=== PATIENT | female | born 1945 | race Caucasian/White ===

== ENCOUNTER → 2017-01-26 | Outpatient (CLI) | payer MEDICARE, MEDICAID, SELFPAY | PROVIDERS: Family Provider Family Medicine; Visit Provider Internal Medicine | DX: Z87.891 Personal history of nicotine dependence (principal); Z12.2 Encounter for screening for malignant neoplasm of respiratory organs ==

== ENCOUNTER → 2017-05-01 13:49 | Outpatient (POV) | payer MEDICARE, MEDICAID, SELFPAY | PROVIDERS: Family Provider Family Medicine; Visit Provider Internal Medicine | DX: Z00.00 Encounter for general adult medical examination without abnormal findings (principal) ==

== ENCOUNTER → 2017-08-24 15:35 | Outpatient (CLI) | payer MEDICARE, MEDICAID, SELFPAY ==
--- NOTE | 2017-08-24 15:45 | XR_ITS ---
XR hip RT 2-3V w/pelvis Ordering Physician: Pat Castro Patient Age: 71 years: Female HISTORY: ITS.REASON: FALL Right hip pain. Fell on sidewalk. TECHNIQUE: AP frog-leg right hip along with AP pelvis. COMPARISON : FINDINGS The right femoral head and neck are intact with no fracture. Bones well mineralized AP pelvis demonstrates symmetrical satisfactory appearance of both hips. No fracture. Sacrum and iliac bone intact. Superior and inferior ramus intact. Moderately distended bladder. IMPRESSION: Negative right hip. Negative AP pelvis
== END ==
PROVIDERS: PCP Nurse Practitioner; Visit Provider Nurse Practitioner
DX: M25.552 Pain in left hip (principal)
CPT/HCPCS: 73502

== ENCOUNTER → 2017-09-04 14:37 | Outpatient (POV) | payer MEDICARE, MEDICAID, SELFPAY | PROVIDERS: Family Provider Family Medicine; PCP Nurse Practitioner; Visit Provider Internal Medicine | DX: Z00.00 Encounter for general adult medical examination without abnormal findings (principal) ==

== ENCOUNTER → 2017-09-06 13:06 | Outpatient (CLI) | payer MEDICARE, MEDICAID, SELFPAY ==
--- NOTE | 2017-09-06 13:11 | CT_ITS ---
CT chest wo con HISTORY: Follow-up pulmonary nodules ITS.REASON: PULMONARY NODULES ORDERING PHYSICIAN: Stanford Ware MD PATIENT AGE: 71 years COMPARISON: 08/06/2015 Technique: Axial images obtained with sagittal and coronal reformats. All CT scans at the facility use one or more dose reduction, viz: automated exposure control, ma/kV adjustment per patient size (including targeted exams where dose is matched to indication, i.e. head), or iterative reconstruction technique. FINDINGS: Artifact is present from cardiac pacemaker wires. Normal heart size. No mediastinal or hilar mass or adenopathy. There are centrilobular emphysematous changes with evidence of old granulomatous disease a 6 mm noncalcified nodule is present within the posterior aspect of the right lower lobe not significant changed. A 4 mm noncalcified nodule present in the left lower lobe posterior laterally unchanged a 4 mm nodules present in the central aspect of the left lower lobe unchanged. No new nodules are evident. Biapical fibrotic changes are noted. No effusions or infiltrates. Fibrotic changes are also present in the lingula. Upper abdominal images are unremarkable. No acute bony findings. IMPRESSION: 1. Overall stable CT appearance of the chest. 2. No change in the bilateral noncalcified pulmonary nodules. 3. Centrilobular emphysema
== END ==
PROVIDERS: Family Provider Family Medicine; PCP Nurse Practitioner; Visit Provider Internal Medicine
DX: R91.8 Other nonspecific abnormal finding of lung field (principal)
CPT/HCPCS: 71250

== ENCOUNTER → 2017-12-11 14:15 | Outpatient (CLI) | payer MEDICARE, MEDICAID, SELFPAY ==
--- NOTE | 2017-12-11 14:18 | CT_ITS ---
CT hip RT wo con INDICATION: Right hip pain, remote injury ITS.REASON: RT HIP AND LOW BACK PAIN ORDERING PHYSICIAN: Pat Castro PATIENT AGE: 72 years COMPARISON: 08/24/2017 TECHNIQUE: Axial images are obtained without contrast. Sagittal and coronal reformatted images are reviewed as well. All CT scans at the facility use one or more dose reduction, viz: automated exposure control, ma/kV adjustment per patient size (including targeted exams where dose is matched to indication, i.e. head), or iterative reconstruction technique. FINDINGS: There is a healing fracture involving the right superior pubic ramus at the junction of the ischium/anterior wall the acetabulum. The fracture line is visible. There is however some callus formation and sclerosis. A minimally displaced rancher present involving the mid aspect of the inferior pubic ramus with some developing sclerosis. There is also a nondisplaced fracture involving the medial aspect of the left superior and inferior pubic ramus. These fractures are not visible on 08/24/2017 radiograph. There is a faint cortical lucency involving the anterior aspect of the neck of the femur seen on axial image 42,43, and 44. A nondisplaced fracture is a consideration however, the lucency does not extend into the intramedullary portion of the femur neck nor the posterior aspect of the neck. This could also represent a small cortical defect. MRI may be of further value to determine between the 2. No soft tissue abnormalities evident. IMPRESSION: 1. Healing fractures of the right superior and inferior pubic ramus and left superior and inferior pubic ramus as described above. 2. Possible nondisplaced fracture of the femoral neck. Consider MRI for further evaluation.
--- NOTE | 2017-12-11 14:18 | CT_ITS ---
CT lumbar spine wo con INDICATION: ITS.REASON: RT HIP AND LOW BACK PAIN ORDERING PHYSICIAN: Pat Castro PATIENT AGE: 72 years COMPARISON: None TECHNIQUE: Axial images obtained with sagittal and coronal reformats. All CT scans at the facility use one or more dose reduction, viz: automated exposure control, ma/kV adjustment per patient size (including targeted exams where dose is matched to indication, i.e. head), or iterative reconstruction technique. FINDINGS: Normal alignment. No fracture or dislocation. The disc spaces are well-preserved. No lytic or blastic change. No significant degenerative change No paraspinal mass. There is diverticulosis of the sigmoid colon. Incidental vascular calcification IMPRESSION: Negative CT lumbar spine
== END ==
PROVIDERS: PCP Nurse Practitioner; Visit Provider Nurse Practitioner
DX: M25.551 Pain in right hip (principal); M54.5 Low back pain
CPT/HCPCS: 72131; 73700

== ENCOUNTER → 2018-01-08 13:35 | Outpatient (POV) | payer MEDICARE, MEDICAID, SELFPAY | PROVIDERS: Visit Provider Internal Medicine | DX: Z00.00 Encounter for general adult medical examination without abnormal findings (principal) ==

== ENCOUNTER → 2018-05-14 14:14 | Outpatient (POV) | payer MEDICARE, MEDICAID, SELFPAY | PROVIDERS: Visit Provider Internal Medicine | DX: Z00.00 Encounter for general adult medical examination without abnormal findings (principal) ==

== ENCOUNTER 2018-07-17 12:35 | Outpatient (CLI) | payer MEDICARE, MEDICAID, SELFPAY ==
[2018-07-17 12:45] VITALS: BP 144/73; PULSE 85; RESP 22; TEMP 36.4; O2SAT 92
[2018-07-17 13:05] VITALS: BP 144/73; PULSE 85; RESP 22; TEMP 36.4; O2SAT 92
== END 2018-07-17 13:05 | disposition home or self-care (01) ==
LOC: INF 12:36
PROVIDERS: PCP Family Medicine; Visit Provider Emergency Medicine
DX: J44.1 Chronic obstructive pulmonary disease with (acute) exacerbation (principal)
CPT/HCPCS: 96374

== ENCOUNTER 2018-09-08 21:26 | Observation (INO) ==
--- NOTE | 2018-09-08 21:51 | Emergency Department Note ---
ED Disposition Clinical Impression: Acute exacerbation of chronic obstructive airways disease, Anxiety, Renal insufficiency Community acquired pneumonia Qualifiers: Laterality: right Lung location: lower lobe of lung Qualified Code(s): J18.1 - Lobar pneumonia, unspecified organism Disposition: Admitted as Observation Condition on Discharge: Good Referrals: Darrell Canada MD [Primary Care Provider] - - Critical Care Critical Care Time: No Attestation: On 09/08/18, the high probability of a clinically significant, sudden or life threatening deterioration of the following system(s) required my full and direct attention, intervention and personal management. The time I documented below is in addition to time spent performing reported procedures but includes the following listed in this critical care notation. Medical Decision Making - Medical Records Medical records reviewed: Yes: I reviewed the patient's medical records. - Dominick Inquiry Pt receiving controlled substance: No Vital Signs: 09/08/18 21:33 09/08/18 22:28 Temperature 98.3 F Temperature Source Oral Pulse Rate 88 Pulse Rate [Right] 87 Respiratory Rate 30 H Blood Pressure [Right Arm] 186/89 H Blood Pressure Mean [Right Arm] 121 02 Sat by Pulse Oximetry 88 L Oxygen Delivery Method Nasal Cannula Oxygen Flow Rate (LPM) 3 - Lab Data Lab results reviewed: Yes: I reviewed the patient's lab results. Lab Results 09/08/18 21:40: WBC 11.1 H, RBC 3.60 L, Hgb 11.0 L, Hct 34.0 L, MCV 94.4, MCH 30.6, MCHC 32.4, RDW 12.6, Plt Count 413, MPV 7.2 L, Neut % (Auto) 85.9 H, Lymph % (Auto) 10.2, Sac % (Auto) 3.8, Eos % (Auto) 0.1, Baso % (Auto) 0.0 L, Neut # (Auto) 9.5 H, Lymph # (Auto) 1.1, Sac # (Auto) 0.4, Eos # (Auto) 0.0, Baso # (Auto) 0.0, Total Counted 100, Neutrophils % (Manual) 84 H, Band Neutrophils % 4.0, Lymphocytes % (Manual) 10, Monocytes % (Manual) 2, Platelet Estimate Normal, RBC Morphology Normal 09/08/18 21:40: Sodium 140, Potassium 3.5, Chloride 101, Carbon Dioxide 30, Anion Gap 12.5, BUN 24 H, Creatinine 1.05 H, Estimated Creat Clear 55, Estimated GFR 52 L, Est GFR ( Amer) 63, Glucose 120 H, Calcium 8.5, Total Bilirubin 0.3, AST 14 L, ALT 30, Alkaline Phosphatase 109, Troponin I < 0.02, C-Reactive Protein < 0.2, Total Protein 6.6, Albumin 3.7, Globulin 2.9, Albumin/Globulin Ratio 1.3 09/08/18 21:40: Lactate 0.7 09/08/18 21:40: ESR 19 09/08/18 21:57: Specimen Source R/r, O2 % 3.5, ABG pH 7.46 H, ABG pCO2 43.3, ABG pO2 105.9 H, ABG HCO3 29.8 H, ABG Total CO2 31.2 H, ABG O2 Saturation 98, ABG Base Excess 5.9 H, Boby Test Y Result diagrams: 09/08/18 21:40 09/08/18 21:40 Orders (Tests/Meds): ED MEDICATIONS Generic Name Dose Route Start Last Admin Trade Name Freq PRN Reason Stop Dose Admin Levofloxacin/Dextrose 500 mg in 100 mls @ 100 mls/hr 09/08/18 23:45 Levaquin 500mg/100ml Premix IV 09/22/18 23:44 [facility]H [facility] Protocol Sodium Chloride 3 ml 09/08/18 21:46 Sodium Chloride 3% 15ml [facility] 10/08/18 21:45 ONCE PRN INDUCE SPUTUM COLLECTION Discontinued Medications Generic Name Dose Route Start Last Admin Trade Name Freq PRN Reason Stop Dose Admin Albuterol/Ipratropium 3 ml 09/08/18 21:48 09/08/18 22:28 Duoneb 3ml [facility] 09/08/18 21:49 3 ml ONCE ONE Administration Methylprednisolone Sodium Succinate 125 mg 09/08/18 22:30 09/08/18 22:37 Solu-Medrol 125mg/2ml Vial IV 09/08/18 22:31 125 mg ONCE ONE Administration ORDERS Category Date Time Status XR chest portable Stat Exams 09/08/18 21:37 Ordered Blood Culture Stat Micro 09/08/18 21:40 Received Sputum Culture & Gram Stain Stat Micro 09/08/18 21:46 Ordered Arterial Blood Gas Stat RT 09/08/18 21:46 Ordered 12-lead EKG Request [ECG Request by /Susan] Stat Y 09/08/18 21:37 Ordered - Radiology Data #1 Image(s): Chest Image Reviewed: Yes I reviewed the patient's radiology image Preliminary Findings: Abnormal (inc changes rt base ) - ECG Data Tracing #1 Arrhythmias present: other (pacemaker ) Resp/SOB HPI - General Chief Complaint: Shortness of Breath/Dyspnea Stated Complaint: sob Time Seen by Provider: 09/08/18 21:45 Mode of Arrival: Ambulatory Source of Information: Patient, Medical Record Limitations: No Limitations Description of Symptoms (Recalled from ER Triage Doc. by RN): Pt states she was seen by her PCP sunday for soa and given a shot of steroids and given steroids to take at home, pt states she is not feeling any better after being perscribed the steroids. Pt wears home o2 and has COPD. - History of Present Illness pt with hx of copd with o2 at 3.5 l at all times - has progressive sob despite prednisone and was seen by pcp on sunday and has not responded to treatment - pt denied any chest pain or known chf - she has financial services assistant cough and no hemoptysis at this time - no fever MD Complaint: shortness of breath, cough Onset (ago): day(s) Severity: moderate Known history of: COPD Associated symptoms: denies other symptoms Treatment prior to arrival: oxygen, bronchodilator - Related Data Home oxygen amount: 3 liters Home Medications Medication Instructions Recorded Confirmed ALPRAZolam [Xanax 1mg tab] 1 mg PO QID 07/16/18 09/08/18 Albuterol Sulfate [Albuterol HFA 2 puff IH Q4HP PRN 07/16/18 09/08/18 Inhaler] Aspirin [Adult Aspirin Regimen] 81 mg PO DAILY 07/16/18 09/08/18 Atorvastatin Calcium [Atorvastatin 20 mg PO HS 07/16/18 09/08/18 20mg Tab] Buspirone HCl [Buspar 5mg tablet] 5 mg PO BID 07/16/18 09/08/18 Carvedilol [Carvedilol 3.125mg Tab] 3.125 mg PO BID 07/16/18 09/08/18 Donepezil HCl [Aricept 10mg 10 mg PO AC 07/16/18 09/08/18 tablet] Furosemide [Furosemide 20mg Tab] 20 mg PO DAILY 07/16/18 09/08/18 Levothyroxine Sodium [Synthroid 25 mcg PO DAILY 07/16/18 09/08/18 25mcg (0.025mg) tablet] Lisinopril [Lisinopril 5mg 5 mg PO BID 07/16/18 09/08/18 Tablet] Montelukast Sodium [Montelukast 10 mg PO DAILY 07/16/18 09/08/18 10mg Tab] Tiotropium Br/Olodaterol HCl 4 gm IH DAILY 07/16/18 09/08/18 [Stiolto Respimat Inhal [place]] Tramadol HCl/Acetaminophen 1 tab PO BID 07/16/18 09/08/18 [Ultracet 37.5/325mg tablet] Trazodone HCl 100 mg PO DAILYP PRN 07/16/18 09/08/18 buPROPion HCl [Bupropion Xl] 150 mg PO BID 07/16/18 09/08/18 Allergies Allergy/AdvReac Type Severity Reaction Status Date / Time amoxicillin [AMOXICILLIN] Allergy Unknown Verified 07/16/18 21:48 Penicillins [PENICILLINS] Allergy Unknown Verified 07/16/18 21:48 prednisone [PREDNISONE] Allergy Unknown Verified 07/16/18 21:48 [facility] History - Hepatitis A Screen Drug use history?: No High risk sexual behaviors?: No History of sexually transmitted infection?: No Currently employed?: No Childcare worker?: No Do you have indoor plumbing?: Yes Do you have electricity?: Yes Attestation statement:: This patient has been screened for Hepatitis A risk factors. I have reviewed the patient's past medical history: Yes Medical History: Reports:: Internal Pacemaker Other Surgeries: Yes: Pacemaker - Social History Smoking Status: Former smoker Tobacco Type: cigarettes Alcohol Intake: never Occupational Status: retired ROS Obtained: Yes All systems reviewed & no additional complaints - Constitutional Constitutional: Denies fever(s) - Eyes Eyes: Denies change in vision - ENT Ears, Nose, Mouth, and Throat: Denies sore throat - Cardiovascular Cardiovascular: Denies chest pain, Reports dyspnea - Respiratory Respiratory: Yes as per HPI, Yes cough, Yes non-productive cough, Yes dyspnea, No coughing up blood, No pain on inspiration - Gastrointestinal Gastrointestingal: Denies: abdominal pain - Genitourinary Female Genitourinary: Denies hematuria - Musculoskeletal Musculoskeletal: Denies joint pain, Denies joint swelling - Integumentary/Breasts Skin/Breast: Denies rash - Neurologic Neurologic: Denies seizure-like activity Physical Exam - General General appearance: alert - Head Head exam: normocephalic - Eye Eye exam: Present: PERRL, EOMI. Absent: scleral icterus - ENT ENT exam: Present: mucous membranes dry - Neck Neck exam: Present: trachea midline - Respiratory Respiratory exam: Present: wheezes, accessory muscle use, prolonged expiratory phase, other (dec bs bilat ). Absent: respiratory distress - Cardiovascular Cardiovascular exam: Present: regular rate, systolic murmur, +S4 - Abdominal Exam Abdominal exam: Present: soft - Extremities Exam Extremities exam: Present: pedal edema. Absent: calf tenderness - Neurological Exam Neurological exam: Present: alert, oriented X3, CN II-XII intact - Psychiatric Psychiatric exam: Present: normal affect - Skin Skin exam: Absent: rash
[2018-09-08 21:52] LABS: Eosinophils % 0.1 % (0.1-12.0); Lymphocytes # 1.1 K/mm3 (0.7-4.5); Lymphocytes % 10.2 % (10-50); Mean Corpuscular HGB Conc 32.4 g/dL (31.8-35.4); Mean Corpuscular Volume 94.4 fl (81-99); Mean Platelet Volume 7.2 fl (7.4-10.4); Monocytes # 0.4 K/mm3 (0.1-1.0); Monocytes % 3.8 % (1.7-9.3); Neutrophils # 9.5 K/mm3 (1.8-7.8); Neutrophils % 85.9 % (37.0-80.0); Platelet Count 413 K/mm3 (142-424); Red Cell Distribution Width 12.6 % (11.5-17.5); White Blood Count 11.1 K/mm3 (4.8-10.8)
[2018-09-08 21:58] LABS: ABG Base Excess 5.9 mmol/L (-2.4-2.3); ABG HCO3 29.8 mmhg (22.0-26.0); ABG Oxygen Saturation 98 % (90-100); ABG PCO2 43.3 mmhg (35.0-45.0); ABG PH 7.46 mmol/L (7.35-7.45); ABG PO2 105.9 mmhg (80-100); ABG TCO2 31.2 mmhg (23-27)
[2018-09-08 21:59] LABS: Allen's Test Y; Oxygen 3.5 %
[2018-09-08 22:07] LABS: Lymphocytes % 10 % (10-50); Monocytes % 2 % (2-9); Neutrophils % 84 % (42-76); RBC Morphology Normal; Total Cells Counted 100
[2018-09-08 22:17] LABS: Alanine Aminotransferase 30 U/L (12-78); Albumin Level 3.7 gm/dL (3.4-5.0); Albumin/Globulin Ratio 1.3 (1.1-1.8); Alkaline Phosphatase 109 U/L (46-116); Anion Gap 12.5 mEq/L (5-15); Aspartate Amino Transferase 14 U/L (15-37); Bilirubin,Total 0.3 mg/dL (0.2-1.0); Blood Urea Nitrogen 24 mg/dL (7-18); Calcium 8.5 mg/dL (8.5-10.1); Carbon Dioxide 30 mmol/L (21.0-32.0); Chloride 101 mmol/L (98-107); Globulin 2.9 gm/dl (1.3-3.2); Glucose 120 mg/dL (74-106); Sodium 140 mmol/L (136-145); Total Protein,Serum 6.6 gm/dL (6.4-8.2)
[2018-09-08 22:18] LABS: C-Reactive Protein < 0.2 mg/dL (0.0-0.9)
[2018-09-09 06:48] LABS: Basophils % 0.1 % (0.1-2.0); Eosinophils % 0.1 % (0.1-12.0); Hemoglobin 10.6 g/dL (12.2-16.2); Lymphocytes # 0.8 K/mm3 (0.7-4.5); Mean Corpuscular HGB Conc 32.1 g/dL (31.8-35.4); Mean Corpuscular Volume 94.4 fl (81-99); Mean Platelet Volume 6.7 fl (7.4-10.4); Monocytes # 0.3 K/mm3 (0.1-1.0); Neutrophils # 7.1 K/mm3 (1.8-7.8); Neutrophils % 86.9 % (37.0-80.0); Platelet Count 391 K/mm3 (142-424); Red Cell Distribution Width 12.6 % (11.5-17.5); White Blood Count 8.2 K/mm3 (4.8-10.8)
[2018-09-09 07:22] LABS: Anion Gap 13.4 mEq/L (5-15); Calcium 8.5 mg/dL (8.5-10.1)
--- NOTE | 2018-09-09 07:41 | Pharmacy Consult Notes ---
[facility] Pharmacy VTE Monitoring - Patient Demographics Admission date: 09/08/18 Report Date: 09/09/18 Time: 07:41 Allergies/Adverse Reactions: Patient Allergies amoxicillin [AMOXICILLIN] Allergy (Unknown, Verified 09/09/18 01:15) Gastrointestinal Upset Penicillins [PENICILLINS] Allergy (Unknown, Verified 09/09/18 01:15) Gastrointestinal Upset prednisone [PREDNISONE] Adverse Reaction (Unknown, Verified 09/09/18 01:15) Shakiness Height: 1.57 m Weight: 71.384 kg Patient Problems: Current Active Problems Acute exacerbation of chronic obstructive airways disease (Acute) Community acquired pneumonia (Acute) Anxiety (Acute) Renal insufficiency (Acute) - VTE Risk Labs: VTE Related Lab Results Hgb 10.6 g/dL (12.2-16.2) L 09/09/18 05:57 Hct 33.0 % (37.0-47.0) L 09/09/18 05:57 Plt Count 391 K/mm3 (142-424) 09/09/18 05:57 BUN 22 mg/dL (7-18) H 09/09/18 05:57 Creatinine 1.03 mg/dL (0.55-1.02) H 09/09/18 05:57 Estimated Creat Clear 56 mL/min (50-200) 09/09/18 05:57 VTE Score: 7 VTE Risk Level: Moderate Risk - Prophylaxis VTE Prophylaxis Ordered?: Yes Types of VTE Prophylaxis: TEDS Knee High Location of Applied Device: Bilateral Lower Extremeties - VTE Diagnosis Confirmed Treatment or plan recommended: Continue Current Treatment
--- NOTE | 2018-09-09 07:55 | History & Physical Report ---
*Admission Date: 09/08/18 *Chief complaint: Shortness of breath *History of present illness: 72-year-old female with severe COPD presented to the emergency department with worsening shortness of breath. I had seen the patient as an outpatient proximally a week ago and began treatment for COPD exacerbation with steroids (dexamethasone). Prednisone was avoided due to increased anxiety and agitation with this medicine in the past. Patient reports breathlessness worsened and she ultimately came to the emergency department. She was diagnosed with COPD exacerbation that had failed outpatient treatment and admitted for further IV steroids. This morning her biggest complaint is her "shakes". She does endorse worsening shortness of breath. [facility] History I have reviewed the patient's past medical history: Yes Medical History: Reports:: Arrhythmia, Internal Pacemaker Denies:: Diabetes Mellitus Type 1, Diabetes Mellitus Type 2 *Have you ever received a pneumonia vaccine?: Yes *Have you received a flu vaccine this season?: Yes Other Medical History: Reports: Hypothyroidism Other Surgeries: Yes: Hysterectomy-Total, Pacemaker - *Social History Educational Level: Attended Grade School Smoking Status: Former smoker Tobacco Type: cigarettes # Packs/Day (cigarettes): 2 #Yrs smoked (if former smoker): 55 Alcohol Intake: never *Occupational Status:: retired Housing: house *Travel in the last 8 weeks: None - Psychiatric History Expresses thoughts of harming self/others: None Suicide Plan Description: No Plan Family Hx:: Cancer, Hypertension Review of Systems - Review of Systems Review of systems:: pertinent systems reviewed and negative unless documented below - *Neurologic Denies seizure-like activity Meds Home Medications Medication Instructions Recorded Confirmed Type ALPRAZolam [Xanax 1mg tab] 1 mg PO QID 07/16/18 09/09/18 History Albuterol Sulfate [Albuterol HFA 2 puff IH Q4HP PRN 07/16/18 09/08/18 History Inhaler] Aspirin [Adult Aspirin Regimen] 81 mg PO DAILY 07/16/18 09/09/18 History Atorvastatin Calcium [Atorvastatin 20 mg PO HS 07/16/18 09/09/18 History 20mg Tab] Buspirone HCl [Buspar 5mg tablet] 5 mg PO BID 07/16/18 09/09/18 History Carvedilol [Carvedilol 3.125mg Tab] 3.125 mg PO BID 07/16/18 09/08/18 History Donepezil HCl [Aricept 10mg 10 mg PO DAILY 07/16/18 09/09/18 History tablet] Furosemide [Furosemide 20mg Tab] 20 mg PO DAILY 07/16/18 09/09/18 History Levothyroxine Sodium [Synthroid 50 mcg PO DAILY 07/16/18 09/09/18 History 25mcg (0.025mg) tablet] Lisinopril [Lisinopril 5mg 5 mg PO BID 07/16/18 09/09/18 History Tablet] Montelukast Sodium [Montelukast 10 mg PO DAILY 07/16/18 09/09/18 History 10mg Tab] Tiotropium Br/Olodaterol HCl 4 gm IH DAILY 07/16/18 09/08/18 History [Stiolto Respimat Inhal [place]] Tramadol HCl/Acetaminophen 1 tab PO BID 07/16/18 09/09/18 History [Ultracet 37.5/325mg tablet] Trazodone HCl 100 mg PO DAILYP PRN 07/16/18 09/09/18 History buPROPion HCl [Bupropion Xl] 150 mg PO BID 07/16/18 09/09/18 History Promethazine/Dextromethorphan 5 ml PO Q6HP PRN 09/09/18 09/09/18 History [Promethazine-Dm Solution] Allergies Allergy/AdvReac Type Severity Reaction Status Date / Time amoxicillin [AMOXICILLIN] Allergy Unknown Gastrointestinal Verified 09/09/18 01:15 Upset Penicillins [PENICILLINS] Allergy Unknown Gastrointestinal Verified 09/09/18 01:15 Upset prednisone [PREDNISONE] AdvReac Unknown Shakiness Verified 09/09/18 01:15 Exam Vital signs and Labs for Last 24 Hours: Temp Pulse Resp BP Pulse Ox 97.7 F 84 22 159/73 H 97 09/09/18 04:22 09/09/18 06:26 09/09/18 04:22 09/09/18 04:22 09/09/18 06:26 Laboratory Results - last 24 hr 09/08/18 21:40: WBC 11.1 H, RBC 3.60 L, Hgb 11.0 L, Hct 34.0 L, MCV 94.4, MCH 30.6, MCHC 32.4, RDW 12.6, Plt Count 413, MPV 7.2 L, Neut % (Auto) 85.9 H, Lymph % (Auto) 10.2, [place] % (Auto) 3.8, Eos % (Auto) 0.1, Baso % (Auto) 0.0 L, Neut # (Auto) 9.5 H, Lymph # (Auto) 1.1, [place] # (Auto) 0.4, Eos # (Auto) 0.0, Baso # (Auto) 0.0, Total Counted 100, Neutrophils % (Manual) 84 H, Band Neutrophils % 4.0, Lymphocytes % (Manual) 10, Monocytes % (Manual) 2, Platelet Estimate Normal, RBC Morphology Normal 09/08/18 21:40: Sodium 140, Potassium 3.5, Chloride 101, Carbon Dioxide 30, Anion Gap 12.5, BUN 24 H, Creatinine 1.05 H, Estimated Creat Clear 55, Estimated GFR 52 L, Est GFR ( Amer) 63, Glucose 120 H, Calcium 8.5, Total Bilirubin 0.3, AST 14 L, ALT 30, Alkaline Phosphatase 109, Troponin I < 0.02, C- Reactive Protein < 0.2, Total Protein 6.6, Albumin 3.7, Globulin 2.9, [place] min/Globulin Ratio 1.3 09/08/18 21:40: Lactate 0.7 09/08/18 21:40: ESR 19 09/08/18 21:57: Specimen Source R/r, O2 % 3.5, ABG pH 7.46 H, ABG pCO2 43.3, ABG pO2 105.9 H, ABG HCO3 29.8 H, ABG Total CO2 31.2 H, ABG O2 Saturation 98, ABG Base Excess 5.9 H, Boby Test Y 09/09/18 02:40: Troponin I 0.02 09/09/18 05:57: WBC 8.2 D, RBC 3.50 L, Hgb 10.6 L, Hct 33.0 L, MCV 94.4, MCH 30.3, MCHC 32.1, RDW 12.6, Plt Count 391, MPV 6.7 L, Neut % (Auto) 86.9 H, Lymph % (Auto) 10.0, [place] % (Auto) 3.0, Eos % (Auto) 0.1, Baso % (Auto) 0.1, Neut # (Auto) 7.1, Lymph # (Auto) 0.8, [place] # (Auto) 0.3, Eos # (Auto) 0.0, Baso # (Auto) 0.0 09/09/18 05:57: Sodium 145, Potassium 3.4 L, Chloride 104, Carbon Dioxide 31, Anion Gap 13.4, BUN 22 H, Creatinine 1.03 H, Estimated Creat Clear 56, Estimated GFR 53 L, Est GFR ( Amer) 64, Glucose 129 H, Calcium 8.5, Magnesium 2.0, Troponin I 0.03 I & O for Last 24 hours: Intake & Output 09/06/18 09/07/18 09/08/18 09/09/18 11:59 11:59 11:59 11:59 Weight 157 lb 6 oz Narrative: Patient is very anxious appearing. She has noticeable upper extremity tremors. ENT exam is grossly normal, nasal cannula is in place. Neck is without lymphadenopathy. Lungs have poor aeration with expiratory wheezes. Heart has a rapid rate and rhythm. Abdomen is soft and nontender. Extremities are without edema. Assessment and Plan (1) Acute exacerbation of chronic obstructive airways disease Current visit: Yes Status: Acute Category: Medical Code(s): J44.1 - Chronic obstructive pulmonary disease with (acute) exacerbation - Assessment and plan all Dx Assessment and Plan for all problems:: 1. IV Solu-Medrol, duo nebs although albuterol will be replaced with Xopenex. Use patient's Xanax to help with tremors. Home medications
[2018-09-09 08:08] LABS: Lymphocytes % 7 % (10-50); Monocytes % 1 % (2-9); Neutrophils % 92 % (42-76); RBC Morphology Normal; Total Cells Counted 100
--- NOTE | 2018-09-10 06:59 | Progress Note ---
Internal Medicine - PN: Subj *Date: 09/10/18 *Time: 06:57 Interval history: Patient has no new complaints this morning. Steroids were discontinued yesterday afternoon as I believe they were actually increasing her anxiety. She was able to sleep overnight until about 3 AM when she went to the bathroom. Nursing reports patient became short of breath while ambulating and was given a PRN breathing treatment. She was able to go back to sleep. She remains on 3 to 3-1/2 L of oxygen via nasal cannula which is her home dose Exam Vital signs and Labs for Last 24 Hours: Temp Pulse Resp BP Pulse Ox 97.9 F 106 H 19 169/82 H 96 09/10/18 04:00 09/10/18 06:11 09/10/18 04:00 09/10/18 04:00 09/10/18 06:11 Laboratory Results - last 24 hr 09/09/18 05:57: Total Counted 100, Neutrophils % (Manual) 92 H, Lymphocytes % (Manual) 7 L, Monocytes % (Manual) 1 L, Platelet Estimate Normal, RBC Morphology Normal 09/09/18 05:57: Sodium 145, Potassium 3.4 L, Chloride 104, Carbon Dioxide 31, Anion Gap 13.4, BUN 22 H, Creatinine 1.03 H, Estimated Creat Clear 56, Estimated GFR 53 L, Est GFR ( Amer) 64, Glucose 129 H, Calcium 8.5, Magnesium 2.0, Troponin I 0.03 I & O for Last 24 hours: Intake & Output 09/07/18 09/08/18 09/09/18 09/10/18 11:59 11:59 11:59 11:59 Intake Total 747 / 747 1533 / 1533 Output Total 300 / 300 600 / 600 Balance 447 / 447 933 / 933 Weight 157 lb 6 oz 157 lb 6 oz Narrative: Patient is less anxious appearing today. She is much less tremulous. Lungs have distant breath sounds with occasional expiratory wheeze. Heart has a regular rate and rhythm Assessment and Plan (1) Acute exacerbation of chronic obstructive airways disease Current visit: Yes Status: Acute Category: Medical Code(s): J44.1 - Chronic obstructive pulmonary disease with (acute) exacerbation - Assessment and plan all Dx Assessment and Plan for all problems:: 1. Mucomyst neb today to see if that may aid with clearance of perceived chest congestion 2. Hold steroids for now and continue Xopenex and ipratropium nebs.
--- NOTE | 2018-09-10 17:35 | Discharge Summary ---
General - General Admission date:: 09/09/18 Discharge date: 09/10/18 HPI HPI: 72-year-old female with severe COPD presented to the emergency department with worsening shortness of breath. I had seen the patient as an outpatient proximally a week ago and began treatment for COPD exacerbation with steroids (dexamethasone). Prednisone was avoided due to increased anxiety and agitation with this medicine in the past. Patient reports breathlessness worsened and she ultimately came to the emergency department. She was diagnosed with COPD exacerbation that had failed outpatient treatment and admitted for further IV steroids. This morning her biggest complaint is her "shakes". She does endorse worsening shortness of breath. Hospital Course Hospital Course: Patient was admitted and placed on Solu-Medrol for COPD exacerbation and Levaquin because of concern over possible small pneumonia. Steroids seem to agitate the patient and after 24 hours decision was made to discontinue steroids as her lung exam compared to her in office lung exam from less than a week prior was actually improved. Blood gas also did not really support acute exacerbation of COPD. Patient was continued on antibiotics and was observed off of steroids. After 24 hours off of steroids patient was much less agitated with significant decrease in tremors and was actually able to rest and get some sleep. Lung exam revealed poor breath sounds but were overall clear. I believe patient to return to her baseline. She will be discharged home. Due to multiple exacerbations over the last 2 months and inhaled corticosteroid will be added to the patient's regimen. She will follow-up in the office next Sunday. Objective Vital signs: Temp Pulse Resp BP Pulse Ox 98.7 F 99 H 20 138/63 97 09/10/18 16:00 09/10/18 16:00 09/10/18 16:00 09/10/18 16:00 09/10/18 16:00 DS: Diagnosis - Discharge Diagnosis (1) Acute exacerbation of chronic obstructive airways disease Status: Acute Discharge Plan - Patient Discharge Instructions ACTIVITY: Continue current activity DIET: continue same diet Patient Instructions: Kidney Failure, DI for Chronic Obstructive Pulmonary Disease, DI for Pneumonia -- Adult - Follow up Plan Follow up with: Darrell Canada MD [Primary Care Provider] - Disposition: Home, Self-Fci Medications: Home Medications Medication Instructions Recorded Confirmed Type ALPRAZolam [Xanax 1mg tab] 2 mg PO QID 07/16/18 09/09/18 History Albuterol Sulfate [Albuterol HFA 2 puff IH Q4HP PRN 07/16/18 09/08/18 History Inhaler] Aspirin [Adult Aspirin Regimen] 81 mg PO DAILY 07/16/18 09/09/18 History Atorvastatin Calcium [Atorvastatin 20 mg PO HS 07/16/18 09/09/18 History 20mg Tab] Buspirone HCl [Buspar 5mg tablet] 5 mg PO BID 07/16/18 09/09/18 History Carvedilol [Carvedilol 3.125mg Tab] 3.125 mg PO BID 07/16/18 09/08/18 History Donepezil HCl [Aricept 10mg 10 mg PO DAILY 07/16/18 09/09/18 History tablet] Furosemide [Furosemide 20mg Tab] 10 mg PO DAILY 07/16/18 09/09/18 History Levothyroxine Sodium [Synthroid 50 mcg PO DAILY 07/16/18 09/09/18 History 25mcg (0.025mg) tablet] Lisinopril [Lisinopril 5mg 5 mg PO BID 07/16/18 09/09/18 History Tablet] Montelukast Sodium [Montelukast 10 mg PO HS 07/16/18 09/09/18 History 10mg Tab] Tiotropium Br/Olodaterol HCl 4 gm IH DAILY 07/16/18 09/08/18 History [Stiolto Respimat Inhal Donner] Tramadol HCl/Acetaminophen 1 tab PO BID 07/16/18 09/09/18 History [Ultracet 37.5/325mg tablet] Trazodone HCl 100 mg PO HSP PRN 07/16/18 09/09/18 History buPROPion HCl [Bupropion Xl] 150 mg PO BID 07/16/18 09/09/18 History Promethazine/Dextromethorphan 5 ml PO Q6HP PRN 09/09/18 09/09/18 History [Promethazine-Dm Solution] Azithromycin [Zithromax 250mg 250 mg PO DIRECTED #6 tab 09/10/18 Rx tab] Budesonide [Pulmicort Flexhaler] 180 mcg IH DAILY #1 [email or web address] 09/10/18 Rx Prescriptions/Medication Reconciliation: New Budesonide [Pulmicort Flexhaler] 180 mcg IH DAILY #1 aer.[email or web address] Azithromycin [Zithromax 250mg tab] 250 mg PO DIRECTED #6 tab Continued Montelukast Sodium [Montelukast 10mg Tab] 10 mg PO HS buPROPion HCl [Bupropion Xl] 150 mg PO BID Atorvastatin Calcium [Atorvastatin 20mg Tab] 20 mg PO HS Carvedilol [Carvedilol 3.125mg Tab] 3.125 mg PO BID Aspirin [Adult Aspirin Regimen] 81 mg PO DAILY Trazodone HCl 100 mg PO HSP PRN PRN Reason: sleep Donepezil HCl [Aricept 10mg tablet] 10 mg PO DAILY Promethazine/Dextromethorphan [Promethazine-Dm Solution] 5 ml PO Q6HP PRN PRN Reason: Cough Buspirone HCl [Buspar 5mg tablet] 5 mg PO BID Tramadol HCl/Acetaminophen [Ultracet 37.5/325mg tablet] 1 tab PO BID Albuterol Sulfate [Albuterol HFA Inhaler] 2 puff IH Q4HP PRN PRN Reason: Shortness Of Breath Or Wheezing ALPRAZolam [Xanax 1mg tab] 2 mg PO QID Furosemide [Furosemide 20mg Tab] 10 mg PO DAILY Lisinopril [Lisinopril 5mg Tablet] 5 mg PO BID Tiotropium Br/Olodaterol HCl [Stiolto Respimat Inhal Donner] 4 gm IH DAILY Levothyroxine Sodium [Synthroid 25mcg (0.025mg) tablet] 50 mcg PO DAILY
== END 2018-09-10 18:45 | disposition home or self-care (01) ==
LOC: 2ND 21:26 → ER 21:26 → 2ND 09-09 00:51
PROVIDERS: ADMIT Emergency Medicine; ATTEND Family Medicine
DX: J44.1 Chronic obstructive pulmonary disease with (acute) exacerbation; Z95.1 Presence of aortocoronary bypass graft; Z88.8 Allergy status to other drugs, medicaments and biological substances; Z79.899 Other long term (current) drug therapy; N28.9 Disorder of kidney and ureter, unspecified; Z80.9 Family history of malignant neoplasm, unspecified; Z79.51 Long term (current) use of inhaled steroids; Z88.1 Allergy status to other antibiotic agents; Z99.81 Dependence on supplemental oxygen; F41.9 Anxiety disorder, unspecified; Z79.82 Long term (current) use of aspirin; Z82.49 Family history of ischemic heart disease and other diseases of the circulatory system; E03.9 Hypothyroidism, unspecified
CPT/HCPCS: 36415; 71010; 71045; 80048; 80053; 82803; 83605; 83735; 84484; 85007; 85025; 85651; 86140; 87040; 87205; 93005; 94640; 94760; 94761; 96365; 96367; 96375; 99284; G0378; J1956

== ENCOUNTER → 2018-10-28 14:36 | Outpatient (CLI) | payer MEDICARE, MEDICAID, SELFPAY ==
[2018-10-28 14:40] LABS: Microscopic, Urine URINE MICROSCOPIC (MICROSCOPIC)
[2018-10-28 15:00] LABS: Basophils % 0.4 % (0.1-2.0); Eosinophils # 0.2 K/mm3 (0.0-0.4); Eosinophils % 3.1 % (0.1-12.0); Hematocrit 36.3 % (37.0-47.0); Hemoglobin 10.9 g/dL (12.2-16.2); Lymphocytes # 1.9 K/mm3 (0.7-4.5); Lymphocytes % 24.1 % (10-50); Mean Corpuscular HGB Conc 30.1 g/dL (31.8-35.4); Mean Corpuscular Hemoglobin 29.1 pg (27.0-31.2); Mean Corpuscular Volume 96.6 fl (81-99); Mean Platelet Volume 7.8 fl (7.4-10.4); Monocytes # 0.6 K/mm3 (0.1-1.0); Monocytes % 7.4 % (1.7-9.3); Neutrophils # 5.2 K/mm3 (1.8-7.8); Neutrophils % 65.1 % (37.0-80.0); Platelet Count 282 K/mm3 (142-424); Red Blood Count 3.76 M/mm3 (4.20-5.40); Red Cell Distribution Width 12.2 % (11.5-17.5); White Blood Count 7.9 K/mm3 (4.8-10.8)
[2018-10-28 15:21] LABS: Appearance,Urine CLEAR (Clear); Bilirubin,Urine Negative (Negative); Blood, Urine Negative (Negative); Color,Urine YELLOW (Yellow); Glucose,Urine (UA) Negative (Negative); Ketones,Urine Negative (Negative); Leukocyte Esterase,Urine Negative (Negative); Nitrate,Urine Negative (Negative); PH,Urine 5.5 (5.0-8.5); Protein,Urine Negative (Negative); Specific Gravity, Urine 1.015 (1.005-1.030); Urobilinogen,Urine 0.2 EU/dl (0.2)
[2018-10-28 15:48] LABS: Squamous Epithelial Cell,Urine Occasional #/hpf (0-5); WBC,Urine Occasional #/hpf (0-3)
[2018-10-28 15:54] LABS: Albumin Level 3.9 gm/dL (3.4-5.0); Anion Gap 17.3 mEq/L (5-15); Blood Urea Nitrogen 17 mg/dL (7-18); Calcium 8.7 mg/dL (8.5-10.1); Carbon Dioxide 35 mmol/L (21.0-32.0); Chloride 95 mmol/L (98-107); Creatinine,Serum 1.03 mg/dL (0.55-1.02); Estimated Glomerular Filt Rate 53 ml/min (>60); GFR (African American) 64 ML/MIN (>60); Glucose 95 mg/dL (74-106); Phosphorous 3.9 mg/dL (2.4-4.9); Potassium 3.3 mmoL/L (3.5-5.1); Sodium 144 mmol/L (136-145)
[2018-10-28 16:52] LABS: Creatinine,Urine Random 113 mg/dL (20-320); Total Protein,Urine Random 14.4 mg/dL (0.0-11.9)
== END ==
PROVIDERS: Visit Provider Internal Medicine Nephrology
DX: N18.3 Chronic kidney disease, stage 3 (moderate) (principal)
CPT/HCPCS: 36415; 80069; 81001; 82570; 82652; 84155; 85025

== ENCOUNTER → 2018-10-29 13:37 | Outpatient (POV) | payer MEDICARE, MEDICAID, SELFPAY | PROVIDERS: Visit Provider Internal Medicine | DX: Z00.00 Encounter for general adult medical examination without abnormal findings (principal) ==

== ENCOUNTER → 2018-11-05 13:22 | Outpatient (CLI) | payer MEDICARE, MEDICAID, SELFPAY ==
--- NOTE | 2018-11-05 13:28 | CT_ITS ---
PROCEDURE: CT LUNG SCREENING CLINICAL INDICATION: H/O NICOTINE DEPENDENCE COMPARISON: CHESTWO CT chest wo con from 09/06/2017 TECHNIQUE: The exam was performed on a GE Light Speed [address] scanner using 2.90 mGy CTDI. A low dose helical CT CHEST was performed on a multi-detector scanner. All CT scans at the facility use one or more dose reduction, viz: automated exposure control, ma/kV adjustment per patient size (including targeted exams where dose is matched to indication, i.e. head), or iterative reconstruction technique. The LDCT was performed in a facility that meets the criteria for the screening program. Data regarding this exam was submitted to ACR which is an approved registry. The order for this exam indicates that it came as a result of a lung cancer screening counseling shard decision-making visit that included all the elements required of such a visit including smoking cessation. The radiologist interpreting this exam meets the [facility] criteria for the LDCT lung cancer screening program. The exam is reported using the Lung-RADS classification scale and reported to the ACR registry. NOTE: This study was performed for the specific purposes of lung cancer screening and is not an alternative to diagnostic chest CT. RADIATION DOSE: CTDI vol(CT dose Index-volume) = 2.90mG DLP (Dose Length Product) = 96.38 mGcm FINDINGS: The noncalcified small bilateral lower lobe nodules are stable measuring almost 5.5 millimeters posteriorly on the right side. Margins are smooth. OTHER FINDINGS: There is a stable strand of increased density in the anterior segment left upper lobe suggesting scarring. IMPRESSION: Stable noncalcified lung nodules largest is 5.5 millimeters in the posterior right lower lobe. Lung rad category 2, probably benign considering stable at follow-up however consider another follow-up at 6 months to 12 months. Dictated by: Kaleb Ayala 11/07/2018 17:42 Electronically signed by Kaleb Ayala in [place] 11/07/2018 17:42
== END ==
PROVIDERS: PCP Family Medicine; Visit Provider Internal Medicine
DX: Z87.891 Personal history of nicotine dependence (principal); Z12.2 Encounter for screening for malignant neoplasm of respiratory organs

== ENCOUNTER → 2020-03-08 07:45 | Outpatient (CLI) | payer MEDICARE, MEDICAID, SELFPAY ==
--- NOTE | 2020-03-08 07:56 | US_ITS ---
PROCEDURE: US LIVER CLINICAL INDICATION: ELEVATED LIVER FUNCTION TST COMPARISON: No exams were available for comparison FINDINGS: PANCREAS: Unremarkable. No obvious mass or abnormal fluid collection. No ductal dilatation. There is mild nonspecific coarse echogenicity of the liver. LIVER: No focal liver lesions demonstrated. Homogeneous echogenicity. No intrahepatic biliary ductal dilatation evident. There is appropriate direction of blood flow within a non dilated portal vein RIGHT KIDNEY: Unremarkable. Normal size and echogenicity. No hydronephrosis GALLBLADDER: Prior cholecystectomy. Common bile duct is normal at 3 mm. IMPRESSION: Prior cholecystectomy. Mild nonspecific coarse echogenicity of the liver. Otherwise negative Dictated by: Boby Kearns MD 03/08/2020 16:17 Boby Kearns MD in [facility] 03/08/2020 16:17
== END ==
PROVIDERS: PCP Nurse Practitioner Family; Visit Provider Nurse Practitioner
DX: R79.89 Other specified abnormal findings of blood chemistry (principal)
CPT/HCPCS: 76705

== ENCOUNTER → 2020-03-20 10:15 | Outpatient (CLI) | payer MEDICARE, MEDICAID, SELFPAY ==
[2020-03-20 10:49] LABS: Basophils % 0.6 % (0.1-2.0); Eosinophils # 0.1 K/mm3 (0.0-0.4); Eosinophils % 0.9 % (0.1-12.0); Hematocrit 35.4 % (37.0-47.0); Hemoglobin 11.4 g/dL (12.2-16.2); Lymphocytes # 1.2 K/mm3 (0.7-4.5); Lymphocytes % 18.6 % (10-50); Mean Corpuscular HGB Conc 32.1 g/dL (31.8-35.4); Mean Corpuscular Hemoglobin 30.7 pg (27.0-31.2); Mean Corpuscular Volume 95.7 fl (81-99); Mean Platelet Volume 7.3 fl (7.4-10.4); Monocytes # 0.4 K/mm3 (0.1-1.0); Neutrophils # 4.5 K/mm3 (1.8-7.8); Neutrophils % 72.9 % (37.0-80.0); Platelet Count 348 K/mm3 (142-424); Red Cell Distribution Width 13.5 % (11.5-17.5); White Blood Count 6.2 K/mm3 (4.8-10.8)
[2020-03-20 11:15] LABS: Alanine Aminotransferase 21 U/L (12-78); Albumin Level 4.4 g/dl (3.5-5.0); Albumin/Globulin Ratio 1.7 (1.1-1.8); Alkaline Phosphatase 104 U/L (38-126); Anion Gap 12.4 mEq/L (5-15); Aspartate Amino Transferase 29 U/L (14-36); Bilirubin,Total 0.2 mg/dl (0.2-1.3); Blood Urea Nitrogen 15 mg/dl (7-17); Calcium 9.5 mg/dl (8.4-10.2); Carbon Dioxide 30 mmol/L (22.0-30.0); Chloride 97 mmol/L (98-107); Estimated Glomerular Filt Rate 61 ml/min (>60); GFR (African American) 74 ML/MIN (>60); Globulin 2.6 g/dL (1.3-3.2); Glucose 139 mg/dl (74-100); Potassium 4.4 mmoL/L (3.5-5.1); Sodium 135 mmol/L (136-145)
[2020-03-20 11:46] LABS: Thyroid Stimulating Hormone 0.93 uIU/mL (0.465-4.68)
[2020-03-20 12:05] LABS: Vitamin B12 > 1000 pg/mL (239-931)
== END ==
PROVIDERS: Visit Provider Internal Medicine Adolescent Medicine
DX: I51.9 Heart disease, unspecified (principal); E03.9 Hypothyroidism, unspecified
CPT/HCPCS: 36415; 80053; 82607; 84443; 85025

== ENCOUNTER → 2020-05-24 12:52 | Outpatient (CLI) | payer MEDICARE, MEDICAID, SELFPAY ==
[2020-05-24 13:45] VITALS: PULSE 74; PULSE 78
--- NOTE | 2020-05-24 14:15 | CT_ITS ---
PROCEDURE: CT CHEST WO CON CLINICAL INDICATION: Nodule Follow up COMPARISON: CT [facility] CT CHEST W/O CONTRAST from 11/26/[address] LUNG SCREENING from 11/05/2018 TECHNIQUE: Axial images obtained with sagittal and coronal reformats. All CT scans at the facility use one or more dose reduction, viz: automated exposure control, ma/kV adjustment per patient size (including targeted exams where dose is matched to indication, i.e. head), or iterative reconstruction technique. FINDINGS: Biventricular and right atrial pacemaker wires are present in good position. There are coronary artery calcifications. No mediastinal or hilar mass or adenopathy. Centrilobular emphysema with COPD. Calcified granuloma right upper lobe. There is a 7 x 7 x 6 mm noncalcified nodule in the right lower lobe posteriorly 44/3. The margins are slightly spiculated. The nodule previously measured 7 x 7 x 5 mm. The nodule does appear somewhat more voluminous compared to the previous exam. This nodule however has been present dating back to 11/26/2012. There are some scattered areas of scarring as before. Scattered noncalcified nodules are present in the left lower lobe measuring up to 4 mm and do not appear significantly changed. No acute bony findings. IMPRESSION: 1. There are scattered noncalcified pulmonary nodules most of which are unchanged. 7 mm nodules present in the right lower lobe posteriorly and appears slightly more prominent from the previous study. This nodule however has been present since 11/26/2012. The slight increase in prominence may be technical in nature. Recommend six-month follow-up to confirm short term stability. 2. COPD/centrilobular emphysema with scattered areas of scarring. Dictated by: Boby Kearns MD 05/25/2020 16:50 Boby Kearns MD in [facility] 05/25/2020 16:50
== END ==
PROVIDERS: PCP Internal Medicine Adolescent Medicine; Visit Provider Internal Medicine Pulmonary Disease
DX: J44.9 Chronic obstructive pulmonary disease, unspecified (principal); R06.00 Dyspnea, unspecified; R91.8 Other nonspecific abnormal finding of lung field; Z87.891 Personal history of nicotine dependence
CPT/HCPCS: 71250; 94060; 94618; 94640

== ENCOUNTER → 2020-07-16 12:18 | Outpatient (CLI) | payer MEDICARE, MEDICAID, SELFPAY ==
--- NOTE | 2020-07-16 12:28 | XR_ITS ---
PROCEDURE: XR CERVICAL SPINE W FLEX/EXT CLINICAL INDICATION: neck pain with brisk reflexes COMPARISON: No exams were available for comparison FINDINGS: Good alignment. No fracture or dislocation. The disc spaces are well preserved. No foraminal narrowing. No lytic or blastic change or cervical rib. IMPRESSION: Negative cervical spine Dictated by: Boby Kearns MD 07/16/2020 19:54 Boby Kearns MD in [facility] 07/16/2020 19:54
[2020-07-16 13:26] LABS: Basophils % 0.2 % (0.1-2.0); Eosinophils # 0.1 K/mm3 (0.0-0.4); Eosinophils % 0.8 % (0.1-12.0); Hematocrit 32.6 % (37.0-47.0); Hemoglobin 10.8 g/dL (12.2-16.2); Lymphocytes # 1.5 K/mm3 (0.7-4.5); Lymphocytes % 12.2 % (10-50); Mean Corpuscular HGB Conc 33.2 g/dL (31.8-35.4); Mean Corpuscular Hemoglobin 30.9 pg (27.0-31.2); Mean Corpuscular Volume 93.1 fl (81-99); Mean Platelet Volume 7.5 fl (7.4-10.4); Monocytes # 0.8 K/mm3 (0.1-1.0); Monocytes % 6.4 % (1.7-9.3); Neutrophils # 10.1 K/mm3 (1.8-7.8); Neutrophils % 80.4 % (37.0-80.0); Platelet Count 381 K/mm3 (142-424); Red Cell Distribution Width 12.5 % (11.5-17.5); White Blood Count 12.6 K/mm3 (4.8-10.8)
[2020-07-16 14:29] LABS: Ferritin 11.2 ng/ml (11.1-264)
[2020-07-16 15:20] LABS: Folate > 20.00 ng/mL; Vitamin B12 > 1000 pg/mL (239-931)
== END ==
PROVIDERS: Visit Provider Nurse Practitioner Family
DX: E83.10 Disorder of iron metabolism, unspecified (principal); F41.9 Anxiety disorder, unspecified; G25.81 Restless legs syndrome; M54.2 Cervicalgia; R29.2 Abnormal reflex; R41.3 Other amnesia
CPT/HCPCS: 36415; 72052; 82607; 82728; 82746; 85025

== ENCOUNTER 2020-10-22 17:05 | Observation (INO) | payer MEDICARE, MEDICAID, SELFPAY ==
[2020-10-22 17:06] VITALS: BP 161/70; PULSE 86; RESP 32; TEMP 36.7; O2SAT 63; BMI 27.4
--- NOTE | 2020-10-22 17:22 | XR_ITS ---
PROCEDURE INFORMATION: Exam: XR Chest Exam date and time: 10/22/2020 5:22 PM Age: 75 years old Clinical indication: Cough and shortness of breath; Prior surgery; Surgery date: 6+ months; Surgery type: Pacemaker; Patient HX: Cough; SOA TECHNIQUE: Imaging protocol: XR of the chest. Views: 1 view. COMPARISON: CT CHEST WO CON 05/24/2020 2:18 PM FINDINGS: Tubes, catheters and devices: AICD projects in satisfactory location. Lungs: Atelectatic changes noted within both lung bases. Pleural spaces: There is no evidence of pneumothorax. There are no pleural effusions present. Heart/Mediastinum: The heart demonstrates mild diffuse enlargement. Bones/joints: The thoracic spine demonstrates mild degenerative changes at multiple levels. IMPRESSION: 1. The heart demonstrates mild diffuse enlargement. 2. Atelectatic changes noted within both lung bases.
--- NOTE | 2020-10-22 17:26 | PC.NURSE ---
RT at BS drawing abg
[2020-10-22 17:33] LABS: Chloride 92 mmol/L (98-107); Potassium 4.3 mmoL/L (3.5-5.1); Sodium 137 mmol/L (136-145)
[2020-10-22 17:36] LABS: Alanine Aminotransferase 21 U/L (12-78); Albumin Level 3.8 g/dl (3.5-5.0); Albumin/Globulin Ratio 1.2 (1.1-1.8); Alkaline Phosphatase 133 U/L (38-126); Anion Gap 13.3 mEq/L (5-15); Aspartate Amino Transferase 28 U/L (14-36); Blood Urea Nitrogen 16 mg/dl (7-17); Calcium 8.6 mg/dl (8.4-10.2); Carbon Dioxide 36 mmol/L (22.0-30.0); Estimated Glomerular Filt Rate 70 ml/min (>60); GFR (African American) 85 ML/MIN (>60); Globulin 3.2 g/dL (1.3-3.2); Glucose 134 mg/dl (74-100)
[2020-10-22 17:39] LABS: Bilirubin,Total < 0.1 mg/dl (0.2-1.3)
--- NOTE | 2020-10-22 17:40 | PC.NURSE ---
pt on venti mask at 40% (12L) at this time SaO2 99%
[2020-10-22 17:46] LABS: NT Pro Brain Natriuretic Pep. 505 pg/mL (0-125)
[2020-10-22 17:48] LABS: ABG Base Excess 10.5 mmol/L (-2.4-2.3); ABG HCO3 35.8 mmhg (22.0-26.0); ABG Oxygen Saturation 98 % (90-100); ABG PH 7.37 mmol/L (7.35-7.45); ABG PO2 125.9 mmhg (80-100); ABG TCO2 37.8 mmhg (23-27)
[2020-10-22 17:49] LABS: Basophils % 0.3 % (0.1-2.0); Eosinophils # 0.2 K/mm3 (0.0-0.4); Eosinophils % 1.5 % (0.1-12.0); Hematocrit 33.1 % (37.0-47.0); Hemoglobin 10.6 g/dL (12.2-16.2); Lymphocytes # 1.5 K/mm3 (0.7-4.5); Lymphocytes % 11.8 % (10-50); Mean Corpuscular Hemoglobin 30.7 pg (27.0-31.2); Mean Corpuscular Volume 96.2 fl (81-99); Mean Platelet Volume 7.7 fl (7.4-10.4); Monocytes # 1.1 K/mm3 (0.1-1.0); Monocytes % 8.5 % (1.7-9.3); Neutrophils # 9.9 K/mm3 (1.8-7.8); Neutrophils % 77.8 % (37.0-80.0); Platelet Count 471 K/mm3 (142-424); Red Blood Count 3.44 M/mm3 (4.20-5.40); Red Cell Distribution Width 13.2 % (11.5-17.5); Troponin I 0.02 ng/ml (0.00-0.034); White Blood Count 12.7 K/mm3 (4.8-10.8)
[2020-10-22 17:50] LABS: Allen's Test Acceptable; Source Left Radial
[2020-10-22 17:51] LABS: Coronavirus 19, PCR Not Detected (NotDetected); Influenza A, PCR Not Detected (NotDetected); Influenza B, PCR Not Detected (NotDetected)
[2020-10-22 17:52] LABS: ABG PCO2 63.7 mmhg (35.0-45.0)
--- NOTE | 2020-10-22 18:04 | ECG_ITS ---
APPROVED REPORT Exam: Resting ECG HR:80 bpm ECG Measurements Heart Rate 80 AXES NM 118 P 74 QRSd 126 QRS 2 QT 408 T 40 QTc 470 Conclusion Electronic ventricular pacemaker Electronically signed by : Darrell De MD 10/23/2020 21:11:21
--- NOTE | 2020-10-22 18:12 | HMH.EDSOB ---
ED Disposition Clinical Impression: COPD with exacerbation Disposition: Admitted as Observation Condition on Discharge: Good Referrals: Sophy Lombardi APRN [Primary Care Provider] - - Critical Care Critical Care Time: No Attestation: On 10/22/20, the high probability of a clinically significant, sudden or life threatening deterioration of the following system(s) required my full and direct attention, intervention and personal management. The time I documented below is in addition to time spent performing reported procedures but includes the following listed in this critical care notation. Medical Decision Making - Medical Records Medical records reviewed: Yes: I reviewed the patient's medical records. - Dominick Inquiry Pt receiving controlled substance: No Vital Signs: 10/22/20 17:06 Temperature 98.0 F Temperature Source Oral Pulse Rate [Right Radial] 86 Respiratory Rate 32 H Blood Pressure [Right Arm] 161/70 H Blood Pressure Mean [Right Arm] 100 Blood Pressure Source [Right Arm] Automatic Cuff Blood Pressure Position [Right Arm] Sitting 02 Sat by Pulse Oximetry 63 L Oxygen Delivery Method Nasal Cannula Oxygen Flow Rate (LPM) 4 - Lab Data Lab Results 10/22/20 17:15: WBC 12.7 H, RBC 3.44 L, Hgb 10.6 L, Hct 33.1 L, MCV 96.2, MCH 30.7, MCHC 32.0, RDW 13.2, Plt Count 471 H, MPV 7.7, Neut % (Auto) 77.8, Lymph % (Auto) 11.8, Benson % (Auto) 8.5, Eos % (Auto) 1.5, Baso % (Auto) 0.3, Neut # (Auto) 9.9 H, Lymph # (Auto) 1.5, Benson # (Auto) 1.1 H, Eos # (Auto) 0.2, Baso # (Auto) 0.0 10/22/20 17:15: Sodium 137, Potassium 4.3, Chloride 92 L, Carbon Dioxide 36 H, Anion Gap 13.3, BUN 16, Creatinine 0.80, Estimated GFR 70, Est GFR ( Amer) 85, Glucose 134 H, Calcium 8.6, Total Bilirubin < 0.1 L, AST 28, ALT 21, Alkaline Phosphatase 133 H, Troponin I 0.02, NT-Pro-B Natriuret Pep 505 H, Total Protein 7.0, Albumin 3.8, Globulin 3.2, Albumin/Globulin Ratio 1.2 10/22/20 17:22: Specimen Source Left radial, O2 % 40 venti, ABG pH 7.37, ABG pCO2 63.7 H, ABG pO2 125.9 H, ABG HCO3 35.8 H, ABG Total CO2 37.8 H, ABG O2 Saturation 98, ABG Base Excess 10.5 H, Boby Test Acceptable 10/22/20 17:38: SARS-CoV-2 (PCR) Not detected, Influenza A Untype (PCR) Not detected, Influenza Type B (PCR) Not detected Result diagrams: 10/22/20 17:15 10/22/20 17:15 Orders (Tests/Meds): ED MEDICATIONS Generic Name Dose Route Start Last Admin Trade Name Freq PRN Reason Stop Dose Admin Doxycycline Hyclate 100 mg/ 250 mls @ 166.667 mls/hr 10/22/20 18:30 Sodium Chloride IV 11/05/20 18:29 Q12H BULMARO Discontinued Medications Generic Name Dose Route Start Last Admin Trade Name Freq PRN Reason Stop Dose Admin Albuterol/Ipratropium 3 ml 10/22/20 17:22 Ipratropium/Albuterol 3 Ml Neb 10/22/20 17:23 ONCE ONE Albuterol/Ipratropium 3 ml 10/22/20 18:29 Ipratropium/Albuterol 3 Ml Neb 10/22/20 18:30 ONCE ONE Dexamethasone Sodium Phosphate 10 mg 10/22/20 17:24 10/22/20 17:27 Dexamethasone 4mg/Ml 5ml Mdv IV 10/22/20 17:25 10 mg ONCE ONE Administration Magnesium Sulfate 2 gm/ Sodium 104 mls @ 100 mls/hr 10/22/20 17:22 10/22/20 17:57 Chloride IV 10/22/20 18:24 100 mls/hr ONCE ONE Administration ORDERS Category Date Time Status XR chest portable Stat Exams 10/22/20 17:22 Taken Troponin I Q3H Lab 10/22/20 20:30 Ordered Troponin I Q3H Lab 10/22/20 23:30 Ordered - Radiology Data #1 Image(s): Chest Image Reviewed: Yes I reviewed the patient's radiology results, Yes I reviewed the patient's radiology image, Yes I have reviewed radiologist's interpretation chronic changes - ECG Data Tracing #1 Electronic ventricular pacemaker. No specific changes. ECG initial impression date: 10/22/20 ECG initial impression time: 18:04 - Reevaluation(s) Time: 18:33 Reevaluation #1: On reevaluation, the patient's wheezing is slightly better. Oxygenation has improved. We will
--- NOTE | 2020-10-22 18:15 | PC.NURSE ---
pt on venti mask at 35% (9L) at this time
[2020-10-22 18:48] VITALS: PULSE 94; O2SAT 90
--- NOTE | 2020-10-22 19:14 | PC.NURSE ---
pt on 6L per NC at this time, will continue to monitor
--- NOTE | 2020-10-22 20:19 | PC.NURSE ---
patient up to floor via wheelchair
[2020-10-22 20:20] VITALS: BP 139/69; PULSE 94; RESP 20; TEMP 36.7; O2SAT 97
[2020-10-22 21:31] VITALS: BP 173/85; PULSE 95; RESP 20; TEMP 36.9; O2SAT 95; BMI 29.9
[2020-10-22 21:36] LABS: Troponin I 0.01 ng/ml (0.00-0.034)
[2020-10-23] VITALS (7 sets, daily range): BP systolic 118–163; BP diastolic 59–83; PULSE 79–100; RESP 16–22; TEMP 36.3–36.8; O2SAT 92–100
[2020-10-23 00:08] LABS: Troponin I 0.01 ng/ml (0.00-0.034)
[2020-10-23 07:23] LABS: Basophils % 0.3 % (0.1-2.0); Eosinophils # 0.1 K/mm3 (0.0-0.4); Hematocrit 28.7 % (37.0-47.0); Lymphocytes # 1.8 K/mm3 (0.7-4.5); Lymphocytes % 25.5 % (10-50); Mean Corpuscular HGB Conc 30.9 g/dL (31.8-35.4); Mean Corpuscular Hemoglobin 30.2 pg (27.0-31.2); Mean Corpuscular Volume 97.8 fl (81-99); Mean Platelet Volume 7.2 fl (7.4-10.4); Monocytes # 0.6 K/mm3 (0.1-1.0); Monocytes % 9.1 % (1.7-9.3); Neutrophils # 4.5 K/mm3 (1.8-7.8); Neutrophils % 64.1 % (37.0-80.0); Platelet Count 388 K/mm3 (142-424); Red Blood Count 2.94 M/mm3 (4.20-5.40); Red Cell Distribution Width 13.2 % (11.5-17.5)
[2020-10-23 07:34] LABS: Anion Gap 7.5 mEq/L (5-15); Blood Urea Nitrogen 15 mg/dl (7-17); Calcium 8.1 mg/dl (8.4-10.2); Carbon Dioxide 39 mmol/L (22.0-30.0); Chloride 96 mmol/L (98-107); Creatinine Clearance Estimated 58 mL/min (50-200); Estimated Glomerular Filt Rate 82 ml/min (>60); GFR (African American) 99 ML/MIN (>60); Glucose 85 mg/dl (74-100); Potassium 4.5 mmoL/L (3.5-5.1); Sodium 138 mmol/L (136-145)
[2020-10-23 07:53] LABS: Hemoglobin 8.9 g/dL (12.2-16.2)
--- NOTE | 2020-10-23 08:31 | HMH.HP ---
*Admission Date: 10/22/20 *Chief complaint: Shortness of air and cough *History of present illness: 75-year-old white female with multiple medical problems including COPD, oxygen requiring with 3 L at home, over the past couple of weeks has become worse, coughing, congestion, severely short of air, came to the office and found to have significant hypoxia, transferred to emergency department and she was found to have COPD exacerbation with minimal respiratory acidosis. Increasing oxygen levels helped, nebulizer treatment and steroids also helped, admitted overnight for further evaluation given her failure of outpatient therapy a couple of weeks ago with antibiotics and steroids. Please note she was Covid negative on PCR swab on admission. [facility] History I have reviewed the patient's past medical history: Yes Medical History: Reports:: Anxiety, Arrhythmia, Atrial Fibrillation, Chronic Obstructive Pulmonary Disease (COPD), Depression, Home Oxygen, Hyperlipidemia, Hypertension, Internal Pacemaker, Lung Disease, Migraine Denies:: Cancer, Diabetes Mellitus Type 1, Diabetes Mellitus Type 2, MRSA *Have you ever received a pneumonia vaccine?: Yes *Have you received a flu vaccine this season?: No Other Medical History: Reports: Hypothyroidism, Thyroid Disease Other Surgeries: Yes: Cardiac Catheterization, Cholecystectomy, Hysterectomy-Total, Pacemaker Amputation: No Fractures: No - *Social History Smoking Status: Former smoker Tobacco Type: cigarettes # Packs/Day (cigarettes): 2 #Yrs smoked (if former smoker): 55 Alcohol Intake: never Substance Use Type: denies use *Occupational Status:: retired Housing: house Household Members: none *Travel in the last 8 weeks: None - Psychiatric History Pschychiatric History:: Reports:: Anxiety, Depression Family Hx:: Cancer, Hypertension Review of Systems - Review of Systems Review of systems:: pertinent systems reviewed and negative unless documented below - *Neurologic Denies headache(s) Meds Home Medications Medication Instructions Recorded Confirmed Type Aspirin [Adult Aspirin Regimen] 81 mg PO DAILY 07/16/18 10/22/20 History Atorvastatin Calcium [Lipitor 20mg 20 mg PO HS 07/16/18 10/22/20 History Tab] Buspirone HCl [Buspar 5mg tablet] 10 mg PO BID 07/16/18 10/22/20 History Furosemide [Furosemide 20mg Tab*] 10 mg PO DAILY 07/16/18 10/22/20 History Levothyroxine Sodium [Synthroid 50 mcg PO DAILY 07/16/18 10/22/20 History 25mcg (0.025mg) tablet] Montelukast Sodium [Montelukast 10 mg PO HS 07/16/18 10/22/20 History 10mg Tab] lisinopriL [Lisinopril 5mg 5 mg PO BID 07/16/18 10/22/20 History Tablet] carvedilol 6.25 mg tablet 6.25 mg PO BID tab 03/02/20 10/22/20 History albuterol sulfate 90 mcg/actuation 1 inh INHALATION QID PRN #8.5 g 06/01/20 10/22/20 Rx aerosol inhaler ipratropium 0.5 mg-albuterol 3 mg 3 ml INHALATION Q6H PRN #180 ml 06/01/20 10/22/20 Rx (2.5 mg base)/3 mL nebulization soln [id number] 1 tab PO Q6H PRN 06/29/20 10/22/20 History 50 mg-325 mg-40 mg tablet donepezil 10 mg tablet 10 mg PO DAILY 30 Days #30 tab 06/29/20 10/22/20 Rx Budesonide/Formoterol Fumarate 2 puff INHALATION BID 10/22/20 10/22/20 History [Budesonide-Formoterol 160-4.5] Omeprazole 40 mg PO DAILY 10/22/20 10/22/20 History Tiotropium Alpine [Spiriva 2 inh INHALATION DAILY 10/22/20 10/22/20 History Respimat] Allergies Allergy/AdvReac Type Severity Reaction Status Date / Time amoxicillin [AMOXICILLIN] Allergy Unknown Gastrointestinal Verified 09/07/20 14:59 Upset Penicillins [PENICILLINS] Allergy Unknown Gastrointestinal Verified 09/07/20 14:59 Upset prednisone [PREDNISONE] AdvReac Unknown Shakiness Verified 09/07/20 14:59 Exam Vital signs and Labs for Last 24 Hours: Temp Pulse Resp BP Pulse Ox 98.0 F 80 18 136/65 93 L 10/23/20 04:00 10/23/20 04:00 10/23/20 04:00 10/23/20 04:00 10/23/20 04:00 Jennyato
--- NOTE | 2020-10-23 09:59 | HMH.PHAVTE ---
[facility] Pharmacy VTE Monitoring - Patient Demographics Admission date: 10/22/20 Report Date: 10/23/20 Time: 09:59 Allergies/Adverse Reactions: Patient Allergies amoxicillin [AMOXICILLIN] Allergy (Unknown, Verified 09/07/20 14:59) Gastrointestinal Upset Penicillins [PENICILLINS] Allergy (Unknown, Verified 09/07/20 14:59) Gastrointestinal Upset prednisone [PREDNISONE] Adverse Reaction (Unknown, Verified 09/07/20 14:59) Shakiness Height: 1.57 m Weight: 73.845 kg Patient Problems: Current Active Problems COPD with exacerbation (Acute) Community acquired pneumonia (Acute) Renal insufficiency (Acute) Anxiety (Chronic) - VTE Risk Labs: VTE Related Lab Results Hgb 8.9 g/dL (12.2-16.2) L D 10/23/20 06:35 Hct 28.7 % (37.0-47.0) L 10/23/20 06:35 Plt Count 388 K/mm3 (142-424) 10/23/20 06:35 BUN 15 mg/dl (7-17) 10/23/20 06:33 Creatinine 0.70 mg/dl (0.52-1.04) 10/23/20 06:33 Estimated Creat Clear 58 mL/min (50-200) 10/23/20 06:33 VTE Score: 5 VTE Risk Level: Low Risk - Prophylaxis VTE Prophylaxis Ordered?: Yes Types of VTE Prophylaxis: TEDS Knee High, Pharmacological Location of Applied Device: Bilateral Lower Extremeties Pharmacologic Type: Enoxaparin
--- NOTE | 2020-10-23 10:07 | HMH.PHAINT ---
MEDICATION RECONCILIATION COMPLETED ON PATIENT USING EXTERNAL FILL HISTORY FROM PHARMACY. -JUDITH MENDOZA, SELAMD
--- NOTE | 2020-10-23 18:03 | PC.NURSE ---
Pt has been pleasant and cooperative this shift. A&O X4. Pt has complained of pain X1 thus far this shift and has been medicated with [place] per APR. Pt reports favorable results. Pt is currently receiving O2 via NC @ 3.5 LPM with sats. >90%. Lung sounds reveal expiratory rhonchi. No edema noted. Skin is C/D/I. Telemetry reveals NSR. Pt ambulates with stand-by assistance to/from the bathroom and throughout the room. Pt has sat up in the recliner for the majority of the shift. Urine is clear and yellow. 1 large, brown stool today. Appetite is good and pt eats the majority of all meals. 20 G peripheral IV in the LT AC is patent and infusing NS @ 100 ML/HR. VSS. Call light within reach. Will continue to monitor.
[2020-10-24] VITALS: BP 143/79; PULSE 90; RESP 22; TEMP 36.5; O2SAT 93
[2020-10-24 02:31] VITALS: PULSE 88; PULSE 91
--- NOTE | 2020-10-24 02:34 | PC.NURSE ---
Pt is A/O x4, no acute changes t/o shift. Pt requested a breathing tx X1 this shift. Pt remains on 3.5L NC her O2 stats >92%. Pt c/o of pain x1 this shift, admin meds per MAR with relief. Pt can ambulate to bathroom with standby assist. VSS, call light within reach. Will continue to monitor.
[2020-10-24 04:00] VITALS: BP 136/65; PULSE 105; RESP 22; TEMP 36.2; O2SAT 96
[2020-10-24 05:08] VITALS: BMI 30.7
[2020-10-24 07:08] LABS: Basophils % 0.4 % (0.1-2.0); Eosinophils # 0.1 K/mm3 (0.0-0.4); Eosinophils % 0.8 % (0.1-12.0); Hematocrit 32.1 % (37.0-47.0); Hemoglobin 9.7 g/dL (12.2-16.2); Lymphocytes # 1.2 K/mm3 (0.7-4.5); Lymphocytes % 15.3 % (10-50); Mean Corpuscular HGB Conc 30.1 g/dL (31.8-35.4); Mean Corpuscular Hemoglobin 29.9 pg (27.0-31.2); Mean Corpuscular Volume 99.5 fl (81-99); Mean Platelet Volume 7.1 fl (7.4-10.4); Monocytes # 0.4 K/mm3 (0.1-1.0); Monocytes % 5.3 % (1.7-9.3); Neutrophils # 6.2 K/mm3 (1.8-7.8); Neutrophils % 78.1 % (37.0-80.0); Platelet Count 460 K/mm3 (142-424); Red Blood Count 3.23 M/mm3 (4.20-5.40); Red Cell Distribution Width 13.2 % (11.5-17.5); White Blood Count 7.9 K/mm3 (4.8-10.8)
[2020-10-24 07:21] LABS: Anion Gap 10.7 mEq/L (5-15); Blood Urea Nitrogen 20 mg/dl (7-17); Calcium 8.6 mg/dl (8.4-10.2); Carbon Dioxide 37 mmol/L (22.0-30.0); Chloride 95 mmol/L (98-107); Creatinine Clearance Estimated 59 mL/min (50-200); Estimated Glomerular Filt Rate 70 ml/min (>60); GFR (African American) 85 ML/MIN (>60); Glucose 105 mg/dl (74-100); Potassium 4.7 mmoL/L (3.5-5.1); Sodium 138 mmol/L (136-145)
[2020-10-24 08:00] VITALS: BP 129/63; PULSE 62; RESP 24; TEMP 37.6; O2SAT 96
--- NOTE | 2020-10-24 08:33 | HMH.DCSUM ---
General - General Admission date:: 10/22/20 Discharge date: 10/24/20 HPI HPI: 75-year-old white female with multiple medical problems including COPD, oxygen requiring with 3 L at home, over the past couple of weeks has become worse, coughing, congestion, severely short of air, came to the office and found to have significant hypoxia, transferred to emergency department and she was found to have COPD exacerbation with minimal respiratory acidosis. Increasing oxygen levels helped, nebulizer treatment and steroids also helped, admitted overnight for further evaluation given her failure of outpatient therapy a couple of weeks ago with antibiotics and steroids. Please note she was Covid negative on PCR swab on admission. Hospital Course Hospital Course: Patient was admitted, placed on intravenous doxycycline and steroids, enhanced pulmonary toilet was given. White count normalized, hemoglobin dropped slightly after some hydration but recovered to more acceptable levels this morning. Although renal insufficiency is on her problem list her creatinine was normal throughout her admission. She improved in regards to oxygen requirements and was at her baseline of 3.5 L overnight and this morning and was comfortable. This morning she felt that she was back to her baseline and wished to be discharged home. She has been eating well, drinking well and doing her own self-care activities. Patient will be discharged home on p.o. doxycycline and steroids. I will see her in my office on her regularly scheduled appointment on October 27 at 2 PM. Objective Vital signs: Temp Pulse Resp BP Pulse Ox 97.2 F L 105 H 22 136/65 96 10/24/20 04:00 10/24/20 04:00 10/24/20 04:00 10/24/20 04:00 10/24/20 04:00 mild distress, obese (Respiratory issues at baseline) - *Routine HEENT Exam Head: Present: normocephalic Eye: Present: EOMI, PERRL ENT: Present: mucous membranes moist - *Routine Neck Exam Present: supple - *Routine Respiratory Exam Present: decreased breath sounds, rhonchi - *Routine Cardiovascular Exam Present: RRR - *Routine Abdominal Exam Present: soft, normoactive bowel sounds. Absent: tenderness - *Routine Extremities Exam Absent: cyanosis, clubbing, edema - *Routine Skin Exam Present: warm. Absent: rash - Detailed Eye Exam Eyelids: Bilateral normal inspection Results Labs on day of discharge: Labs from last 24 hours 10/24/20 10/24/20 06:48 06:48 WBC 7.9 RBC 3.23 L Hgb 9.7 L Hct 32.1 L MCV 99.5 H MCH 29.9 MCHC 30.1 L RDW 13.2 Plt Count 460 H MPV 7.1 L Neut % (Auto) 78.1 Lymph % (Auto) 15.3 [place] % (Auto) 5.3 Eos % (Auto) 0.8 Baso % (Auto) 0.4 Neut # (Auto) 6.2 Lymph # (Auto) 1.2 [place] # (Auto) 0.4 Eos # (Auto) 0.1 Baso # (Auto) 0.0 Sodium 138 Potassium 4.7 Chloride 95 L Carbon Dioxide 37 H Anion Gap 10.7 BUN 20 H D Creatinine 0.80 Estimated Creat Clear 59 Estimated GFR 70 Est GFR ( Amer) 85 Glucose 105 H Calcium 8.6 Preliminary micro results at discharge 10/23/20 15:30 Sputum Culture - Preliminary Sputum - Expectorated Sputum DS: Diagnosis - Discharge Diagnosis (1) COPD with exacerbation Status: Acute (2) Community acquired pneumonia Status: Acute (3) Renal insufficiency Status: Ruled-out (4) Anxiety Status: Chronic Discharge Plan - Patient Discharge Instructions ACTIVITY: Continue current activity DIET: continue same diet Patient Instructions: DI for Chronic Obstructive Pulmonary Disease - Follow up Plan Follow up with: Darrell De MD [Staff Physician] - 10/27/20 2:00 pm Disposition: Home, Self-Care Condition at discharge:: Improved Home Medications: Home Medications Medication Instructions Recorded Confirmed Type Aspirin [Adult Aspirin Regimen] 81 mg PO DAILY 07/16/18 10/22/20 History Atorvastatin Calcium [Lipitor 20mg 20 mg P
== END 2020-10-24 10:50 | disposition home or self-care (01) ==
LOC: ER 19:16 → 2ND 19:40
PROVIDERS: Admitting Provider Family Medicine; Emergency Provider Emergency Medicine; PCP Nurse Practitioner Family; Visit Provider Internal Medicine Adolescent Medicine
DX: J44.1 Chronic obstructive pulmonary disease with (acute) exacerbation (principal); Z99.81 Dependence on supplemental oxygen; Z20.822 Contact with and (suspected) exposure to COVID-19; I48.91 Unspecified atrial fibrillation; I10 Essential (primary) hypertension; Z95.0 Presence of cardiac pacemaker; J18.9 Pneumonia, unspecified organism; Z79.899 Other long term (current) drug therapy; Z88.8 Allergy status to other drugs, medicaments and biological substances; G43.909 Migraine, unspecified, not intractable, without status migrainosus; E03.9 Hypothyroidism, unspecified; R06.9 Unspecified abnormalities of breathing; J44.0 Chronic obstructive pulmonary disease with (acute) lower respiratory infection
CPT/HCPCS: G0378; 36415; 71045; 80048; 80053; 82803; 83880; 84484; 85025; 87070; 87205; 93005; 94640; 96365; 96366; 96375; 99284; C9803; U0003; U0005

== ENCOUNTER → 2021-04-25 15:24 | Outpatient (CLI) | payer MEDICARE, MEDICAID, SELFPAY ==
--- NOTE | 2021-04-25 15:30 | CT_ITS ---
FINAL REPORT TECHNIQUE: Axial CT images were performed through the chest without contrast. Coronal reformatted images were submitted. This study was performed with techniques to keep radiation doses as low as reasonably achievable (ALARA). Individualized dose reduction techniques using automated exposure control or adjustment of mA and/or kV according to the patient's size were employed. CLINICAL HISTORY: 6-month follow-up COMPARISON: May 24, 2020 and November 05, 2018 FINDINGS: There is streak artifact arising from left upper anterior chest wall pacemaker. There are a few lymph nodes in the AP window measuring up to 11 mm. There is no axillary adenopathy. There is no hilar or mediastinal adenopathy. The heart size is normal. There is no pericardial or pleural effusion. Limited images of the upper abdomen reveals tiny non obstructing renal stones in the lower pole of the left kidney. There are postoperative changes from cholecystectomy. There are moderate changes of centrilobular emphysema. There is abnormal thickening along the superior left major fissure which is new from the prior exam. This thickening measures 6 mm and is favored to be related to fluid although it does appear somewhat nodular. There is an 8 mm nodule in the right lung base which is essentially stable as compared to the exam in 2019. There are several small nodules in the left lower lobe measuring up to 5 mm which are well seen on image 133 of series 3. IMPRESSION: Advanced changes of centrilobular emphysema. Abnormal thickening of the superior left major fissure of uncertain significance. While this may represent fluid, a follow-up CT in 1 month is recommended due to the slightly lobular contour. Essentially stable bibasilar nodules with the largest in the posterior right lung base. Reviewed, Interpreted and Dictated by Chaim Manzanares MD Transcribed by Windy Thomas Authenticated by Chaim Manzanares MD on 04/25/2021 04:27:04 PM [facility]
[2021-04-25 16:44] LABS: Basophils # 0.1 K/mm3 (0-0.2); Basophils % 0.5 % (0.1-2.0); Eosinophils # 0.1 K/mm3 (0.0-0.4); Eosinophils % 0.6 % (0.1-12.0); Hematocrit 32.6 % (37.0-47.0); Hemoglobin 9.6 g/dL (12.2-16.2); Lymphocytes # 1.3 K/mm3 (0.7-4.5); Lymphocytes % 13.6 % (10-50); Mean Corpuscular HGB Conc 29.5 g/dL (31.8-35.4); Mean Corpuscular Hemoglobin 29.8 pg (27.0-31.2); Mean Platelet Volume 8.7 fl (7.4-10.4); Monocytes # 0.7 K/mm3 (0.1-1.0); Monocytes % 7.6 % (1.7-9.3); Neutrophils # 7.5 K/mm3 (1.8-7.8); Neutrophils % 77.7 % (37.0-80.0); Platelet Count 324 K/mm3 (142-424); Red Blood Count 3.23 M/mm3 (4.20-5.40); Red Cell Distribution Width 16.1 % (11.5-17.5); White Blood Count 9.7 K/mm3 (4.8-10.8)
[2021-04-25 17:28] LABS: Alanine Aminotransferase 20 U/L (12-78); Albumin Level 3.7 g/dl (3.5-5.0); Albumin/Globulin Ratio 1.7 (1.1-1.8); Alkaline Phosphatase 157 U/L (38-126); Aspartate Amino Transferase 36 U/L (14-36); Bilirubin,Total 0.3 mg/dl (0.2-1.3); Blood Urea Nitrogen 26 mg/dl (7-17); Calcium 8.1 mg/dl (8.4-10.2); Chloride 95 mmol/L (98-107); Estimated Glomerular Filt Rate 61 ml/min (>60); GFR (African American) 74 ML/MIN (>60); Globulin 2.2 g/dL (1.3-3.2); Glucose 133 mg/dl (74-100); Sodium 141 mmol/L (136-145); Total Protein,Serum 5.9 g/dl (6.3-8.2)
[2021-04-25 17:42] LABS: Carbon Dioxide 42 mmol/L (22.0-30.0)
== END ==
PROVIDERS: PCP Internal Medicine Adolescent Medicine; Visit Provider Internal Medicine Adolescent Medicine
DX: R91.8 Other nonspecific abnormal finding of lung field (principal); J44.1 Chronic obstructive pulmonary disease with (acute) exacerbation
CPT/HCPCS: 36415; 71250; 80053; 85025

== ENCOUNTER 2021-04-28 17:11 | Observation (INO) | payer MEDICARE, MEDICAID, SELFPAY ==
[2021-04-28 16:57] LABS: ABG Base Excess 13.8 mmol/L (-2.4-2.3); ABG HCO3 38.3 mmhg (22.0-26.0); ABG Oxygen Saturation 49 % (90-100); ABG PH 7.42 mmol/L (7.35-7.45); ABG TCO2 40.2 mmhg (23-27)
[2021-04-28 17:15] VITALS: BMI 29.4
--- NOTE | 2021-04-28 17:56 | CT_ITS ---
PROCEDURE INFORMATION: Exam: CTA Chest With Contrast Exam date and time: 04/28/2021 6:47 PM Age: 75 years old Clinical indication: Other: Hypoxia TECHNIQUE: Imaging protocol: Computed tomographic angiography of the chest with contrast. 3D rendering (Not supervised by radiologist): MIP and/or 3D reconstructed images were created by the technologist. Total images: 602 Radiation optimization: All CT scans at this facility use at least one of these dose optimization techniques: automated exposure control; mA and/or kV adjustment per patient size (includes targeted exams where dose is matched to clinical indication); or iterative reconstruction. Contrast material: ISOVUE 370; Contrast volume: 70 ml; Contrast route: INTRAVENOUS (IV); COMPARISON: CT CHEST WO CON 04/25/2021 3:37 PM FINDINGS: Pulmonary arteries: No large central pulmonary emboli were identified. Assessment of the small peripheral subsegmental branches at a few levels in the upper and basilar lung urbina was significantly limited due to gross respiratory motion. No suspected peripheral emboli were identified. Aorta: The aorta enhances appropriately without evidence of dissection or aneurysm. No mediastinal hematoma. The aorta demonstrates mild ectasia/tortuosity and moderate calcific atherosclerosis. Veins: There is mild subdiaphragmatic contrast reflux into the IVC and hepatic veins suspicious for an element of CHF. Thyroid: The visualized thyroid gland demonstrates no gross abnormality. Lungs: Moderate emphysematous changes in the pulmonary apices. Granulomatous calcifications in the right upper lobe. Mild-moderate bronchial wall thickening in the basilar distributions bilaterally with a few short segment bronchial occlusions on each side which may be due to occlusive secretions/mucous plugging. Chronic aspiration could produce this appearance. No evidence of natali aspiration pneumonia. No gross pulmonary infiltrates or edema pattern. Minor atelectasis in the peripheral lung bases. 8.2 mm noncalcified pulmonary nodule in the posterior right lower lobe on series 2, image 169 is unchanged from 2016. 5 mm nodule in the posterior left lower lobe and adjacent 3.5 mm nodule posteriorly on images 174-180 are also unchanged. 5.5 mm posterolateral juxtapleural nodule in the left base on image 206 also unchanged. These do not require further assessment. Minimal dependent basilar pleural effusions bilaterally, right greater than left. Pleural spaces: No pneumothorax. Heart: Mild cardiomegaly.Cardiac pacemaker without gross hardware complication or change.Moderate coronary artery calcification. No pericardial effusion. Mediastinal space: Mildly enlarged nodes in the pretracheal retrocaval and subcarinal distribution which are nonspecific. The esophagus is largely contracted but demonstrates no gross abnormality. Lymph nodes: No supraclavicular or axillary adenopathy. Gallbladder and bile ducts: Prior cholecystectomy. Nondilated bile ducts. Kidneys and ureters: Mild right renal caliectasis peers new since 04/25/2021. There is no asymmetric perirenal stranding to suggest acute obstructive uropathy specifically however. No urolithiasis is seen within the scan range.There is a low-density circumscribed left renal cortical lesion suggesting renal cyst. No further imaging evaluation is required. Bones/joints: No acute osseous abnormalities are identified. Soft tissues: Mild soft tissue stranding/edema in the peripheral subcutaneous tissues suggesting volume overload or anasarca. IMPRESSION: 1. No evidence of pulmonary embolism or aortic dissection. Assessment of the small peripheral branches was s
[2021-04-28 17:57] VITALS: BP 147/69; PULSE 73; RESP 20; TEMP 37; O2SAT 96
--- NOTE | 2021-04-28 18:02 | HMH.HP ---
*Admission Date: 04/28/21 *Chief complaint: Dyspnea/hypoxia *History of present illness: 75-year-old white female with oxygen requiring COPD who spends most of her time at home and who is afflicted with a significant anxiety disorder and tremor disorder. She follows with pulmonology here at [facility] as well as neurology and is on a host of medications for tremor, anxiety, etc. I have been seeing her for about 2 years, and in the meantime have always seen her very comfortable on her 2 L nasal cannula in the office. She came in to see me 3 days ago with dyspnea and mild confusion. She appears slightly hypoxic and responded well to an increase in her oxygen up to 4 L in the office and I treated her for COPD exacerbation with outpatient prednisone, ceftriaxone injection and doxycycline p.o. Chest x-ray was done. Labs at that point were fairly unremarkable. She came back to see me in the office today, had gained 5 pounds, had edema of her feet, was once again hypoxic in the office. I sent her down for a blood gas which revealed normal pH, PCO2 of 60, but PO2 in the 20s on 4 L nasal cannula. At that point I directly admitted her to the hospital for work-up of her hypoxia, pulmonary consultation and inpatient therapy. [facility] History I have reviewed the patient's past medical history: Yes Medical History: Reports:: Anxiety, Arrhythmia, Atrial Fibrillation, Chronic Obstructive Pulmonary Disease (COPD), Depression, Home Oxygen, Hyperlipidemia, Hypertension, Internal Pacemaker, Lung Disease, Migraine Denies:: Cancer, Diabetes Mellitus Type 1, Diabetes Mellitus Type 2, MRSA *Have you ever received a pneumonia vaccine?: No *Have you received a flu vaccine this season?: No Other Medical History: Reports: Hypothyroidism, Thyroid Disease Other Surgeries: Yes: Cardiac Catheterization, Cholecystectomy, Colonoscopy, Hysterectomy-Total, Pacemaker Amputation: No Fractures: No - *Social History Smoking Status: Former smoker Tobacco Type: cigarettes # Packs/Day (cigarettes): 2 #Yrs smoked (if former smoker): 55 Alcohol Intake: never Substance Use Type: denies use *Occupational Status:: retired Housing: house Household Members: none *Travel in the last 8 weeks: None - Psychiatric History Pschychiatric History:: Reports:: Anxiety, Depression Family Hx:: Cancer, Hypertension Review of Systems - Review of Systems Review of systems:: pertinent systems reviewed and negative unless documented below - Constitutional Reports fatigue - Eyes Denies blind spots, Denies blurry vision, Denies change in vision - *Cardiovascular Reports shortness of breath with activity, Reports leg swelling, Denies chest pain - *Respiratory Reports chest congestion, Denies change in phlegm color - *Gastrointestinal Denies abdominal pain, Denies change in stools - *Neurologic Reports dizziness, Reports tremor(s), Denies confusion - Psychiatric Reports anxiety Meds Home Medications Medication Instructions Recorded Confirmed Type Aspirin [Adult Aspirin Regimen] 81 mg PO DAILY 07/16/18 04/28/21 History Atorvastatin Calcium [Lipitor 20mg 20 mg PO HS 07/16/18 04/28/21 History Tab] Buspirone HCl [Buspar 5mg tablet] 10 mg PO BID 07/16/18 04/28/21 History Montelukast Sodium [Montelukast 10 mg PO PM 07/16/18 04/28/21 History 10mg Tab] lisinopriL [Lisinopril 5mg 5 mg PO DAILY 07/16/18 04/28/21 History Tablet] carvedilol 6.25 mg tablet 6.25 mg PO BID tab 03/02/20 04/28/21 History albuterol sulfate 90 mcg/actuation 1 inh INHALATION QID PRN #8.5 g 06/01/20 04/28/21 Rx aerosol inhaler [id number] 1 tab PO Q4HP PRN 06/29/20 04/28/21 History 50 mg-325 mg-40 mg tablet Tiotropium [place] [Spiriva 2 puff IH DAILY 10/22/20 04/28/21 History Respimat] Escitalopram Oxalate [Lexapro] 10 mg PO DAILY 10/23/20 04/28/21 History Levothyroxine Sodium 50 mcg PO DAILY 10/23/20 04/28/21 History [Levothyroxine 50mcg (0.05m
[2021-04-28 18:10] LABS: Coronavirus 19, PCR Not Detected (NotDetected); Influenza A, PCR Not Detected (NotDetected); Influenza B, PCR Not Detected (NotDetected)
[2021-04-28 18:10] LABS: Basophils % 0.4 % (0.1-2.0); Eosinophils % 0.2 % (0.1-12.0); Hematocrit 32.7 % (37.0-47.0); Hemoglobin 9.8 g/dL (12.2-16.2); Lymphocytes # 1.3 K/mm3 (0.7-4.5); Lymphocytes % 16.2 % (10-50); Mean Corpuscular HGB Conc 30.1 g/dL (31.8-35.4); Mean Corpuscular Hemoglobin 30.2 pg (27.0-31.2); Mean Corpuscular Volume 100.6 fl (81-99); Mean Platelet Volume 8.9 fl (7.4-10.4); Monocytes # 0.5 K/mm3 (0.1-1.0); Monocytes % 5.9 % (1.7-9.3); Neutrophils # 6.3 K/mm3 (1.8-7.8); Neutrophils % 77.3 % (37.0-80.0); Platelet Count 368 K/mm3 (142-424); Red Blood Count 3.25 M/mm3 (4.20-5.40); Red Cell Distribution Width 16.5 % (11.5-17.5); White Blood Count 8.1 K/mm3 (4.8-10.8)
[2021-04-28 18:20] LABS: Chloride 96 mmol/L (98-107); Potassium 3.4 mmoL/L (3.5-5.1); Sodium 142 mmol/L (136-145)
[2021-04-28 18:22] LABS: Blood Urea Nitrogen 29 mg/dl (7-17); Creatinine Clearance Estimated 57 mL/min (50-200); Estimated Glomerular Filt Rate 61 ml/min (>60); GFR (African American) 74 ML/MIN (>60)
[2021-04-28 18:23] LABS: Alanine Aminotransferase 28 U/L (12-78); Albumin Level 3.7 g/dl (3.5-5.0); Albumin/Globulin Ratio 1.5 (1.1-1.8); Alkaline Phosphatase 163 U/L (38-126); Aspartate Amino Transferase 47 U/L (14-36); Bilirubin,Total 0.2 mg/dl (0.2-1.3); Calcium 7.4 mg/dl (8.4-10.2); Globulin 2.4 g/dL (1.3-3.2); Glucose 113 mg/dl (74-100); Total Protein,Serum 6.1 g/dl (6.3-8.2)
[2021-04-28 18:53] LABS: Anion Gap 8.4 mEq/L (5-15); Carbon Dioxide 41 mmol/L (22.0-30.0)
[2021-04-28 20:00] VITALS: BP 125/65; PULSE 81; RESP 22; TEMP 36.4; O2SAT 91; O2SAT 94
[2021-04-28 20:44] LABS: Allen's Test Acceptable; Oxygen 5 %; Source Right Radial
[2021-04-28 20:45] LABS: ABG PCO2 60.9 mmhg (35.0-45.0); ABG PO2 25.1 mmhg (80-100)
[2021-04-28 21:20] VITALS: PULSE 74; PULSE 77
[2021-04-29] VITALS: BP 151/71; PULSE 72; RESP 18; TEMP 36.6; O2SAT 91
[2021-04-29 04:00] VITALS: BP 132/68; PULSE 65; RESP 14; TEMP 36.4; O2SAT 100
[2021-04-29 05:00] VITALS: BMI 29.6
[2021-04-29 05:36] LABS: Basophils # 0.1 K/mm3 (0-0.2); Basophils % 1.5 % (0.1-2.0); Eosinophils # 0.1 K/mm3 (0.0-0.4); Eosinophils % 1.7 % (0.1-12.0); Hematocrit 31.2 % (37.0-47.0); Hemoglobin 9.3 g/dL (12.2-16.2); Lymphocytes # 2.1 K/mm3 (0.7-4.5); Lymphocytes % 28.5 % (10-50); Mean Corpuscular HGB Conc 29.8 g/dL (31.8-35.4); Mean Corpuscular Hemoglobin 29.8 pg (27.0-31.2); Monocytes # 0.7 K/mm3 (0.1-1.0); Monocytes % 10.1 % (1.7-9.3); Neutrophils # 4.3 K/mm3 (1.8-7.8); Neutrophils % 58.2 % (37.0-80.0); Platelet Count 292 K/mm3 (142-424); Red Blood Count 3.12 M/mm3 (4.20-5.40); Red Cell Distribution Width 16.4 % (11.5-17.5); White Blood Count 7.3 K/mm3 (4.8-10.8)
--- NOTE | 2021-04-29 06:30 | HMH.ACPN2 ---
Internal Medicine - PN: Subj *Date: 04/29/21 *Time: 06:30 Exam Vital signs and Labs for Last 24 Hours: Temp Pulse Resp BP Pulse Ox 97.6 F 65 14 132/68 100 04/29/21 04:00 04/29/21 04:00 04/29/21 04:00 04/29/21 04:00 04/29/21 04:00 Laboratory Results - last 24 hr 04/28/21 16:37: Specimen Source Right radial, O2 % 5, ABG pH 7.42, ABG pCO2 60.9 H, ABG pO2 25.1 L, ABG HCO3 38.3 H, ABG Total CO2 40.2 H, ABG O2 Saturation 49 L*, ABG Base Excess 13.8 H, Boby Test Acceptable 04/28/21 17:45: WBC 8.1, RBC 3.25 L, Hgb 9.8 L, Hct 32.7 L, MCV 100.6 H, MCH 30.2, MCHC 30.1 L, RDW 16.5, Plt Count 368, MPV 8.9, Neut % (Auto) 77.3, Lymph % (Auto) 16.2, [place] % (Auto) 5.9, Eos % (Auto) 0.2, Baso % (Auto) 0.4, Neut # (Auto) 6.3, Lymph # (Auto) 1.3, [place] # (Auto) 0.5, Eos # (Auto) 0.0, Baso # (Auto) 0.0 04/28/21 17:45: Sodium 142, Potassium 3.4 L, Chloride 96 L, Carbon Dioxide 41 H*, Anion Gap 8.4, BUN 29 H, Creatinine 0.90, Estimated Creat Clear 57, Estimated GFR 61, Est GFR ( Amer) 74, Glucose 113 H, Calcium 7.4 L, Total Bilirubin 0.2, AST 47 H, ALT 28, Alkaline Phosphatase 163 H, Total Protein 6.1 L, Albumin 3.7, Globulin 2.4, Albumin/Globulin Ratio 1.5 04/28/21 17:45: Lactate 1.0 04/28/21 17:47: SARS-CoV-2 (PCR) Not detected, Influenza A Untype (PCR) Not detected, Influenza Type B (PCR) Not detected 04/29/21 05:25: WBC 7.3, RBC 3.12 L, Hgb 9.3 L, Hct 31.2 L, MCV 100.0 H, MCH 29.8, MCHC 29.8 L, RDW 16.4, Plt Count 292, MPV 8.0, Neut % (Auto) 58.2, Lymph % (Auto) 28.5, [place] % (Auto) 10.1 H, Eos % (Auto) 1.7, Baso % (Auto) 1.5, Neut # (Auto) 4.3, Lymph # (Auto) 2.1, [place] # (Auto) 0.7, Eos # (Auto) 0.1, Baso # (Auto) 0.1 I & O for Last 24 hours: Intake & Output 04/26/21 04/27/21 04/28/21 04/29/21 23:59 23:59 23:59 23:59 Intake Total 240 / 240 Output Total 1100 / 1400 650 / 650 Balance -860 / -1160 -650 / -650 Weight 73.028 kg 73.028 kg Microbiology Reports for the Last 24 Hours: Microbiology 04/28/21 17:35 Sputum - Expectorated Sputum Gram Stain - Final Assessment and Plan (1) Peripheral edema Status: Acute Category: Medical Code(s): R60.9 - Edema, unspecified (2) Hypoxia Status: Acute Category: Medical Code(s): R09.02 - Hypoxemia (3) Acute exacerbation of chronic obstructive airways disease Status: Acute Category: Medical Code(s): J44.1 - Chronic obstructive pulmonary disease with (acute) exacerbation (4) Anxiety Status: Chronic Category: Medical Code(s): F41.9 - Anxiety disorder, unspecified
[2021-04-29 06:53] LABS: Blood Urea Nitrogen 32 mg/dl (7-17); Calcium 7.5 mg/dl (8.4-10.2); Chloride 90 mmol/L (98-107); Creatinine Clearance Estimated 57 mL/min (50-200); Estimated Glomerular Filt Rate 70 ml/min (>60); GFR (African American) 85 ML/MIN (>60); Glucose 82 mg/dl (74-100); Potassium 3.6 mmoL/L (3.5-5.1); Sodium 141 mmol/L (136-145)
[2021-04-29 07:10] LABS: Anion Gap 7.6 mEq/L (5-15); Carbon Dioxide 47 mmol/L (22.0-30.0)
--- NOTE | 2021-04-29 07:45 | ECG_ITS ---
APPROVED REPORT Exam: Resting ECG HR:85 bpm ECG Measurements Heart Rate 85 AXES HI 125 P 79 QRSd 138 QRS 150 QT 392 T 60 QTc 434 Conclusion ELECTRONIC VENTRICULAR PACEMAKER ABNORMAL RHYTHM ECG UNCONFIRMED REPORT Electronically signed by : Darrell De MD 04/29/2021 19:36:25
[2021-04-29 08:00] VITALS: BP 160/97; PULSE 91; RESP 19; O2SAT 93
--- NOTE | 2021-04-29 08:06 | HMH.PHAVTE ---
[facility] Pharmacy VTE Monitoring - Patient Demographics Admission date: 04/29/21 Report Date: 04/29/21 Time: 08:07 Allergies/Adverse Reactions: Patient Allergies amoxicillin [AMOXICILLIN] Allergy (Unknown, Verified 10/28/20 14:17) Gastrointestinal Upset Penicillins [PENICILLINS] Allergy (Unknown, Verified 10/28/20 14:17) Gastrointestinal Upset prednisone [PREDNISONE] Adverse Reaction (Unknown, Verified 10/28/20 14:17) Shakiness Height: 1.57 m Weight: 73.028 kg Patient Problems: Current Active Problems Acute exacerbation of chronic obstructive airways disease (Acute) Peripheral edema (Acute) Hypoxia (Acute) Anxiety (Chronic) - VTE Risk Labs: VTE Related Lab Results Hgb 9.3 g/dL (12.2-16.2) L 04/29/21 05:25 Hct 31.2 % (37.0-47.0) L 04/29/21 05:25 Plt Count 292 K/mm3 (142-424) 04/29/21 05:25 BUN 32 mg/dl (7-17) H 04/29/21 05:25 Creatinine 0.80 mg/dl (0.52-1.04) 04/29/21 05:25 Estimated Creat Clear 57 mL/min (50-200) 04/29/21 05:25 Was VTE Risk Assessment Performed: Yes VTE Score: 6 VTE Risk Level: Moderate Risk Clinical Trial Participant: No - Prophylaxis VTE Prophylaxis Ordered?: Yes Types of VTE Prophylaxis: TEDS Knee High
--- NOTE | 2021-04-29 10:56 | HMH.PHAINT ---
verified home medication list using list from outpatient pharmacy and [facility]
--- NOTE | 2021-04-29 11:04 | HMH.PULMCON ---
*Admission Date: 04/29/21 *Reason for consult:: Acute on chronic hypoxic respiratory failure. *History of present illness: Ms. Canchola is a 75-year-old female prior smoker greater than 30 pack years previously seen in pulmonary clinic in May 2020 for COPD, no follow-up appointments after that presented to the primary care with worsening respiratory distress discharge sent home on antibiotics and upon follow-up visit patient noted worsening respiratory failure and was eventually admitted as concern for pulmonary embolism patient is CT from that resulted negative for pulmonary embolism, she continues receive steroids and antibiotic and pulmonary was called prior to discharge for further evaluation and follow-up care [facility] History Medical History: Reports:: Anxiety, Arrhythmia, Atrial Fibrillation, Chronic Obstructive Pulmonary Disease (COPD), Depression, Home Oxygen, Hyperlipidemia, Hypertension, Internal Pacemaker, Lung Disease, Migraine Denies:: Cancer, Diabetes Mellitus Type 1, Diabetes Mellitus Type 2, MRSA *Have you ever received a pneumonia vaccine?: Yes *Have you received a flu vaccine this season?: Yes Other Medical History: Reports: Hypothyroidism, Thyroid Disease Other Surgeries: Yes: Cardiac Catheterization, Cholecystectomy, Colonoscopy, Hysterectomy-Total, Pacemaker Amputation: No Fractures: No - *Social History Smoking Status: Former smoker Tobacco Type: cigarettes # Packs/Day (cigarettes): 2 #Yrs smoked (if former smoker): 55 Alcohol Intake: never Substance Use Type: denies use *Occupational Status:: retired Housing: house Household Members: none *Travel in the last 8 weeks: None - Psychiatric History Pschychiatric History:: Reports:: Anxiety, Depression Family Hx:: Cancer, Hypertension ROS - Cons Reports daytime sleepiness, Reports lack of energy - Eyes Reports blurry vision - ENT Denies nosebleed - Card Reports shortness of breath, Reports shortness of breath with activity - Resp Respiratory: Reports chest congestion, Reports cough, Denies coughing up blood, Reports wheezing - GI Gastrointestingal: Denies: abdominal pain - [place] Musculoskeletal: Reports deformity, Reports muscle cramps Comments: tremors - Psych Denies thoughts of hurting/killing others, Denies thoughts of hurting/killing yourself Meds Home Medications Medication Instructions Recorded Confirmed Type Aspirin [Adult Aspirin Regimen] 81 mg PO DAILY 07/16/18 04/28/21 History Atorvastatin Calcium [Lipitor 20mg 20 mg PO HS 07/16/18 04/28/21 History Tab] Montelukast Sodium [Montelukast 10 mg PO PM 07/16/18 04/28/21 History 10mg Tab] lisinopriL [Lisinopril 5mg 5 mg PO DAILY 07/16/18 04/28/21 History Tablet] carvedilol 6.25 mg tablet 6.25 mg PO BID tab 03/02/20 04/28/21 History albuterol sulfate 90 mcg/actuation 1 inh INHALATION QID PRN #8.5 g 06/01/20 04/28/21 Rx aerosol inhaler [id number]-[id number] 1 tab PO Q4HP PRN 06/29/20 04/28/21 History 50 mg-325 mg-40 mg tablet Levothyroxine Sodium 50 mcg PO DAILYDM 10/23/20 04/29/21 History [Levothyroxine 50mcg (0.05mg) Tab] Promethazine/Dextromethorphan 5 ml PO Q6HP PRN 10/23/20 04/28/21 History [Promethazine-Dm Syrup] Ropinirole HCl 2 mg PO HS 10/23/20 04/29/21 History clonazePAM [Clonazepam] 1 mg PO TID 10/23/20 04/28/21 History donepezil 10 mg tablet 10 mg PO DAILY 30 Days #30 tab 10/28/20 04/28/21 Rx ipratropium 0.5 mg-albuterol 3 mg 3 ml INHALATION Q6H PRN #180 ml 01/07/21 04/28/21 Rx (2.5 mg base)/3 mL nebulization soln fluticasone 250 mcg-salmeterol 50 1 inh INHALATION BID 90 Days #60 04/08/21 04/29/21 Rx mcg/dose blistr powdr for each inhalation Furosemide [Lasix 20mg tab] 20 mg PO DIRECTED 04/28/21 04/29/21 History Tiotropium [place] [Spiriva 2 cap IH DAILY 04/28/21 04/28/21 History 18mcg/puff inhaler] Acetaminophen 650 mg PO Q4H PRN 04/29/21 04/29/21 History Buspirone HCl [Buspar 10mg 10 mg PO BID 04/29/21
[2021-04-29 11:47] VITALS: BMI 29.6
[2021-04-29 12:00] VITALS: BP 122/68; PULSE 84; RESP 18; TEMP 37; O2SAT 93
--- NOTE | 2021-04-29 14:12 | HMH.DCSUM ---
General - General Admission date:: 04/28/21 Discharge date: 04/29/21 HPI HPI: 75-year-old white female with oxygen requiring COPD who spends most of her time at home and who is afflicted with a significant anxiety disorder and tremor disorder. She follows with pulmonology here at [facility] as well as neurology and is on a host of medications for tremor, anxiety, etc. I have been seeing her for about 2 years, and in the meantime have always seen her very comfortable on her 2 L nasal cannula in the office. She came in to see me 3 days ago with dyspnea and mild confusion. She appears slightly hypoxic and responded well to an increase in her oxygen up to 4 L in the office and I treated her for COPD exacerbation with outpatient prednisone, ceftriaxone injection and doxycycline p.o. Chest x-ray was done. Labs at that point were fairly unremarkable. She came back to see me in the office today, had gained 5 pounds, had edema of her feet, was once again hypoxic in the office. I sent her down for a blood gas which revealed normal pH, PCO2 of 60, but PO2 in the 20s on 4 L nasal cannula. At that point I directly admitted her to the hospital for work-up of her hypoxia, pulmonary consultation and inpatient therapy. Hospital Course Hospital Course: #Acute on chronic hypoxic respiratory failure: #COPD exacerbation: 75-year-old prior smoker presented with acute on chronic hypoxic respiratory failure. Patient uses long-term oxygen therapy at 3 to 4 L at home. CTA performed, no evidence of pulmonary embolism, lower lobe infiltrate/bronchial thickening. No evidence of leukocytosis. Echocardiogram obtained showing CHF with ejection fraction of 40%. Patient responded well to antibiotics and steroids. Pulmonology consulted, appreciate their recommendations. Given her improvement during admission, patient medically stable for discharge home. We will plan to transition to oral steroids and antibiotics. -Continue antibiotic treatment with levofloxacin. Prednisone for 5 days total. -At baseline home oxygen requirement. -Plan to have close follow-up with pulmonology in 2 to 3 weeks. Close follow-up with our office or her primary care in 1 to 2 weeks. -Continue breathing regimen including Advair, Spiriva, and duo nebs. Blood pressure well controlled, continue diuretic, beta-chaim, ELI inhibitor for CHF. Further adjustment in the outpatient setting. Examined on day of discharge. Medically stable for discharge home with family. Objective Vital signs: Temp Pulse Resp BP Pulse Ox 98.6 F 84 18 122/68 93 L 04/29/21 12:00 04/29/21 12:00 04/29/21 12:00 04/29/21 12:00 04/29/21 12:00 Narrative: - Constitutional minimal distress, obese, chronically ill appearing; wants to be left alone - *Routine HEENT Exam Head: Present: normocephalic Eye: Present: EOMI, PERRL ENT: Present: mucous membranes dry Comments: Perioral cyanosis noted in office - *Routine Neck Exam Present: supple. Absent: lymphadenopathy - *Routine Respiratory Exam Present: accessory muscle use, decreased breath sounds, rhonchi - *Routine Cardiovascular Exam Present: RRR - *Routine Abdominal Exam Present: soft, normoactive bowel sounds. Absent: tenderness - *Routine Extremities Exam Present: edema (1+ edema to mid ankles bilaterally). Absent: cyanosis, clubbing - *Routine Skin Exam Present: warm. Absent: rash - *Routine Neurological Exam Present: alert, oriented to person and place. at baseline strength and function Results Labs on day of discharge: Labs from last 24 hours 04/29/21 04/29/21 04/28/21 05:25 05:25 17:47 WBC 7.3 RBC 3.12 L Hgb 9.3 L Hct 31.2 L MCV 100.0 H MCH 29.8 MCHC 29.8 L RDW 16.4 Plt Count 292 MPV 8.0 Neut % (Auto) 58.2 Lymph % (Auto) 28.5 [place] % (Auto) 10.1 H Eos % (Auto) 1.7 Baso % (Auto) 1.5 Neut # (Auto) 4.3 Lymph # (Au
--- NOTE | 2021-04-29 14:54 | PC.NURSE ---
Trying to D/C pt, but Dr prescribed medication that pt has an allergy to. Currently on phone trying to resolve.
--- NOTE | 2021-04-29 15:04 | PC.NURSE ---
Spoke with Ayanna from Dr. Garcia's office. He stated that for her not to take the prednisone, and to stop they doxycycline that was prescribed earlier this week from Dr. De, and take the levaquin that was prescribed today.
--- NOTE | 2021-04-29 17:56 | CA_ITS ---
APPROVED REPORT EXAM: Comprehensive 2D, Doppler, and color-flow Echocardiogram [employer] Partner: Bibi Mayer RT(R) Ht: 5 ft 2 in Wt: 161lbs BSA: 1.74 BP: 147/69 mmHg Indications: edema, COPD, ex smoker, HTN, hyperlipidemia, home o2, tremors, AFIB, pacemaker Echo Enhancing Agent Indication: Endocardial border delineation Agent(s) / Amount(s) Used: Definity 2 cc 2D Dimensions LVOT 2.04 cm (M/F) 1.5-2.5 LA Volume 47.40 mL LA Volume Index 27.24 mL/m2 (M/F) 16-34 M-Mode Dimensions RVDd 3.61 cm (0.9-2.6) LA Diam 4.27 cm (1.9-4.0) LVDd 4.90 cm (3.5-5.7) Ao Diam 2.33 cm (2.0-3.7) LVDs 3.91 cm (3.5-5.7) IVSd 0.76 cm (0.6-1.1) PWd 0.76 cm (0.6-1.1) EF (Teich) 41.20% FS 20.20% EDV (Teich) 112.80 mL TAPSE 2.43 (<1.7) ESV (Teich) 66.30 mL LV Diastology E Decel Time 150.00 (160-240 msec) E/A Ratio 0.6 MED E' 6.20 (< 7 cm/sec) E'/MED E' Ratio 11.06 (>14) LAT E' 7.30 (<10 cm/sec) E/LAT E' Ratio 9.40 (>14) Mitral Valve MV E Max Medardo. 69.00 (40-130 cm/s) MV A Velocity 113.00 (40-130 cm/s) E/A Ratio 0.61 MV Decel. Time 150.00 (160-240 ms) MV PHT 44.00 ms Tricuspid Valve TR P. Velocity 370.00 cm/s RAP Estimate 15.00 mmHg RVSP 69.70 mmHg Left Ventricle Left atrium is mildly enlarged, left ventricle is normal size, mild concentric left ventricular hypertrophy, visually estimated ejection fraction 40%, there is abnormal septal motion, Definity contrast was utilized to delineate the endocardial surface, there is no left ventricular thrombus seen. Grade 1 diastolic dysfunction seen without tissue Doppler evidence of raise left atrial pressure. Right Ventricle Right atrium and right ventricle are moderately enlarged, contractility right ventricle is normal, there is pacemaker leads in the right ventricle. Aortic Valve Aortic valve is thickened and calcified without aortic stenosis or aortic insufficiency. Mitral Valve Mitral valve leaflets are minimally thickened, there is mild mitral regurgitation. Tricuspid Valve Tricuspid valve leaflets are not well visualized, there is mild tricuspid regurgitation, calculated right ventricular systolic pressure 69 mmHg. Pulmonic Valve Pulmonic valve is poorly visualized. Great Vessels Aortic root is normal size. Inferior vena cava is poorly visualized. Pericardium No significant pericardial effusion noted. Conclusion 1. Biatrial enlargement, normal left ventricular size, mild concentric left ventricular hypertrophy, estimated ejection fraction 40%, there is abnormal septal motion, grade 1 diastolic dysfunction seen without tissue Doppler evidence of raise left atrial pressure, Definity contrast was utilized to delineate the endocardial surfaces, there is no left ventricular thrombus seen. 2. Moderately enlarged right ventricle with normal contractility, there is pacemaker lead seen in right ventricle. 3. Mild mitral and tricuspid regurgitation, calculated right ventricular systolic pressure is 69 mmHg. 4. No significant pericardial effusion. 5. Inferior vena cava is poorly visualized. Electronically signed by : Efra Naylor MD 04/29/2021 15:36:01
--- NOTE | 2021-05-02 12:50 | CARE MANAGER ---
Contacted patient regarding follow up from hospital discharge. Patient states that she is feeling better. She is taking her antibiotic but they did not end up taking the prednisone as she is allergic. She states she has appt. with Dr. De on 05/[address] Garcia on 05/12. She denies any questions or concerns. MARY Cabezas
== END 2021-04-29 16:00 | disposition home or self-care (01) ==
LOC: ICU 17:21
PROVIDERS: Admitting Provider Internal Medicine Adolescent Medicine; PCP Internal Medicine Adolescent Medicine; Visit Provider Internal Medicine Adolescent Medicine
DX: J44.9 Chronic obstructive pulmonary disease, unspecified (principal); G43.909 Migraine, unspecified, not intractable, without status migrainosus; I48.91 Unspecified atrial fibrillation; I11.0 Hypertensive heart disease with heart failure; Z99.81 Dependence on supplemental oxygen; Z20.822 Contact with and (suspected) exposure to COVID-19; E03.9 Hypothyroidism, unspecified; Z79.899 Other long term (current) drug therapy; Z87.891 Personal history of nicotine dependence; J96.21 Acute and chronic respiratory failure with hypoxia; I50.9 Heart failure, unspecified
CPT/HCPCS: G0378; G0379; 36415; 71250; 71275; 80048; 80053; 82803; 83605; 85025; 87040; 87070; 87205; 93005; 93306; 94640; C9803; J2405; Q9957; Q9967; U0003; U0005

== ENCOUNTER 2021-05-31 17:19 | Inpatient (IN) | payer MEDICARE, MEDICAID, SELFPAY ==
[2021-05-31] VITALS (13 sets, daily range): BP systolic 123–178; BP diastolic 53–86; PULSE 56–74; RESP 20–26; TEMP 36.5; O2SAT 90–100; BMI 27.8
--- NOTE | 2021-05-31 17:21 | ECG_ITS ---
APPROVED REPORT Exam: Resting ECG HR:60 bpm ECG Measurements Heart Rate 60 AXES GA 139 P 205 QRSd 142 QRS 142 QT 490 T 59 QTc 490 Conclusion ELECTRONIC ATRIAL PACEMAKER ELECTRONIC VENTRICULAR PACEMAKER ABNORMAL RHYTHM ECG UNCONFIRMED REPORT Electronically signed by : Darrell De MD 06/02/2021 08:03:38
--- NOTE | 2021-05-31 17:22 | XR_ITS ---
PROCEDURE INFORMATION: Exam: XR Right Foot Exam date and time: 05/31/21 05:27 PM Age: 75 years old Clinical indication: Injury or trauma; Fall; Blunt trauma; Foot; Right; Additional info: Bruise, fall TECHNIQUE: Imaging protocol: XR Right foot. Views: 3 or more views. COMPARISON: No relevant prior studies available. FINDINGS: Bones/joints: Disc space narrowing at the 1st metatarsophalangeal junction and at the interphalangeal joint of the great toe. No acute fracture. Soft tissues: Soft tissue swelling of the distal forefoot. IMPRESSION: 1. No acute fracture. 2. Soft tissue swelling of the distal forefoot.
--- NOTE | 2021-05-31 17:22 | HMH.EDGENADL ---
ED Disposition Clinical Impression: Hypoxemic respiratory failure, chronic, COPD exacerbation Disposition: Still a Patient Condition on Discharge: Good - Critical Care Critical Care Time: No Attestation: On , the high probability of a clinically significant, sudden or life threatening deterioration of the following system(s) required my full and direct attention, intervention and personal management. The time I documented below is in addition to time spent performing reported procedures but includes the following listed in this critical care notation. Medical Decision Making - Medical Records Medical records reviewed: Yes: I reviewed the patient's medical records. - Dominick Inquiry Pt receiving controlled substance: No Vital Signs: 05/31/21 17:14 05/31/21 17:31 05/31/21 18:01 Temperature 97.7 F Temperature Source Oral Pulse Rate 68 62 Pulse Rate [Left Radial] 67 Respiratory Rate 26 H Blood Pressure 123/53 L 150/70 H Blood Pressure [Right Arm] 154/76 H Blood Pressure Mean [Right Arm] 102 Blood Pressure Source [Right Arm] Automatic Cuff Blood Pressure Position [Right Arm] Sitting 02 Sat by Pulse Oximetry 95 90 L 100 Oxygen Delivery Method Nasal Cannula Nasal Cannula Nasal Cannula Oxygen Flow Rate (LPM) 3 3 05/31/21 18:11 Temperature Temperature Source Pulse Rate 63 Pulse Rate [Left Radial] Respiratory Rate Blood Pressure Blood Pressure [Right Arm] Blood Pressure Mean [Right Arm] Blood Pressure Source [Right Arm] Blood Pressure Position [Right Arm] 02 Sat by Pulse Oximetry Oxygen Delivery Method Oxygen Flow Rate (LPM) - Lab Data Lab Results 05/31/21 17:30: NT-Pro-B Natriuret Pep 732 H 05/31/21 17:40: WBC 6.4, RBC 3.41 L, Hgb 10.1 L, Hct 34.6 L, MCV 101.2 H, MCH 29.5, MCHC 29.2 L, RDW 14.6, Plt Count 243, MPV 7.8, Neut % (Auto) 65.4, Lymph % (Auto) 25.5, [place] % (Auto) 7.5, Eos % (Auto) 1.4, Baso % (Auto) 0.3, Neut # (Auto) 4.2, Lymph # (Auto) 1.6, [place] # (Auto) 0.5, Eos # (Auto) 0.1, Baso # (Auto) 0.0 05/31/21 17:40: Sodium 142, Potassium 2.3 L*, Chloride 106, Carbon Dioxide 39 H, BUN 12, Creatinine 0.50 L, Estimated Creat Clear 54, Estimated GFR 121, Est GFR ( Amer) 146, Glucose 87, Calcium 5.5 L, Total Bilirubin 0.1 L, AST 11 L, ALT 6 L, Alkaline Phosphatase 79, Total Protein 3.7 L D, Albumin 2.1 L, Globulin 1.6, Albumin/Globulin Ratio 1.3 05/31/21 19:02: Specimen Source rr, O2 % 4, ABG pH 7.31 L, ABG pCO2 97.0 H, ABG pO2 66.0 L, ABG HCO3 47.4 H, ABG Total CO2 50.4 H, ABG O2 Saturation 93, ABG Base Excess 21.1 H, Boby Test y Result diagrams: 05/31/21 17:40 05/31/21 17:40 Orders (Tests/Meds): ED MEDICATIONS Generic Name Dose Route Start Last Admin Trade Name Freq PRN Reason Stop Dose Admin Potassium Chloride/Water 100 mls @ 100 mls/hr 05/31/21 19:30 Potassium Chloride 10meq/100ml Ivpb IV 05/31/21 22:29 Q1H BULMARO Discontinued Medications Generic Name Dose Route Start Last Admin Trade Name Freq PRN Reason Stop Dose Admin Albuterol/Ipratropium 3 ml 05/31/21 17:42 05/31/21 18:10 Ipratropium/Albuterol 3 Ml [facility] 05/31/21 17:43 3 ml ONCE ONE Administration Albuterol/Ipratropium 3 ml 05/31/21 17:43 05/31/21 18:10 Ipratropium/Albuterol 3 Ml [facility] 05/31/21 17:44 3 ml ONCE ONE Administration Methylprednisolone Sodium Succinate 125 mg 05/31/21 17:43 05/31/21 17:45 Methylprednisolone Sod Succ 125mg Vial IV 05/31/21 17:44 125 mg ONCE ONE Administration ORDERS Category Date Time Status Comprehensive Metabolic Panel Stat Lab 05/31/21 17:40 Results Rapid PCR Covid and Flu A/B Stat Lab 05/31/21 19:24 Ordered Urinalysis and Microscopic Stat Lab 05/31/21 17:21 Ordered ABG [Arterial Blood Gas] Stat RT 05/31/21 19:01 Ordered EKG Request [ECG Request by /Susan] Stat Y 05/31/21 17:21 Ordered General Adult HPI - General Stated complaint: general weakness Time Seen by Provider: 05/31/21 17:22 Sour
--- NOTE | 2021-05-31 17:28 | PC.NURSE ---
xray at bedside
--- NOTE | 2021-05-31 17:35 | XR_ITS ---
PROCEDURE INFORMATION: Exam: XR Chest Exam date and time: 05/31/21 05:27 PM Age: 75 years old Clinical indication: Other: Weakness; Prior surgery TECHNIQUE: Imaging protocol: XR of the chest. Views: 1 view. COMPARISON: CT CHEST WO CON 04/25/21 03:37 PM FINDINGS: Tubes, catheters and devices: Left subclavian pacemaker leads overlie the right atrium and right ventricle with an epicardial lead. Lungs: No acute cardiopulmonary disease. Pleural spaces: Unremarkable. No pleural effusion. No pneumothorax. Heart/Mediastinum: Cardiomegaly. Bones/joints: Unremarkable. IMPRESSION: No acute cardiopulmonary disease.
[2021-05-31 17:59] LABS: Basophils % 0.3 % (0.1-2.0); Eosinophils # 0.1 K/mm3 (0.0-0.4); Eosinophils % 1.4 % (0.1-12.0); Hematocrit 34.6 % (37.0-47.0); Hemoglobin 10.1 g/dL (12.2-16.2); Lymphocytes # 1.6 K/mm3 (0.7-4.5); Lymphocytes % 25.5 % (10-50); Mean Corpuscular HGB Conc 29.2 g/dL (31.8-35.4); Mean Corpuscular Hemoglobin 29.5 pg (27.0-31.2); Mean Corpuscular Volume 101.2 fl (81-99); Mean Platelet Volume 7.8 fl (7.4-10.4); Monocytes # 0.5 K/mm3 (0.1-1.0); Monocytes % 7.5 % (1.7-9.3); Neutrophils # 4.2 K/mm3 (1.8-7.8); Neutrophils % 65.4 % (37.0-80.0); Platelet Count 243 K/mm3 (142-424); Red Blood Count 3.41 M/mm3 (4.20-5.40); Red Cell Distribution Width 14.6 % (11.5-17.5); White Blood Count 6.4 K/mm3 (4.8-10.8)
[2021-05-31 18:28] LABS: Chloride 106 mmol/L (98-107); Sodium 142 mmol/L (136-145)
[2021-05-31 18:30] LABS: Blood Urea Nitrogen 12 mg/dl (7-17); Creatinine Clearance Estimated 54 mL/min (50-200); Estimated Glomerular Filt Rate 121 ml/min (>60); GFR (African American) 146 ML/MIN (>60)
[2021-05-31 18:31] LABS: Alanine Aminotransferase 6 U/L (12-78); Albumin Level 2.1 g/dl (3.5-5.0); Albumin/Globulin Ratio 1.3 (1.1-1.8); Alkaline Phosphatase 79 U/L (38-126); Aspartate Amino Transferase 11 U/L (14-36); Globulin 1.6 g/dL (1.3-3.2); Glucose 87 mg/dl (74-100); Total Protein,Serum 3.7 g/dl (6.3-8.2)
--- NOTE | 2021-05-31 18:38 | PC.NURSE ---
assisted to and from the bathroom
[2021-05-31 19:15] LABS: ABG Base Excess 21.1 mmol/L (-2.4-2.3); ABG HCO3 47.4 mmhg (22.0-26.0); ABG Oxygen Saturation 93 % (90-100); ABG PH 7.31 mmol/L (7.35-7.45); ABG TCO2 50.4 mmhg (23-27); Allen's Test y; Oxygen 4 %; Source rr
[2021-05-31 19:18] LABS: Bilirubin,Total 0.1 mg/dl (0.2-1.3)
[2021-05-31 19:19] LABS: Calcium 5.5 mg/dl (8.4-10.2); Potassium 2.3 mmoL/L (3.5-5.1)
[2021-05-31 19:23] LABS: NT Pro Brain Natriuretic Pep. 732 pg/mL (0-125)
--- NOTE | 2021-05-31 19:24 | PC.NURSE ---
RT at bedside
[2021-05-31 19:30] LABS: Anion Gap -0.7 mEq/L (5-15); Carbon Dioxide 39 mmol/L (22.0-30.0)
[2021-05-31 19:34] LABS: Coronavirus 19, PCR Not Detected (NotDetected); Influenza A, PCR Not Detected (NotDetected); Influenza B, PCR Not Detected (NotDetected)
--- NOTE | 2021-05-31 20:50 | PC.NURSE ---
RT at bedside
--- NOTE | 2021-05-31 20:51 | PC.NURSE ---
RT @ bedside placing bipap on pt
[2021-05-31 21:24] LABS: Microscopic, Urine URINE MICROSCOPIC (MICROSCOPIC)
--- NOTE | 2021-05-31 21:24 | PC.NURSE ---
DRY STOOL CLEANED FROM PATIENT. #16 F BARRY CATHETER PLACED WITHOUT DIFFICULTY. 300 ML CLOUDY FOUL SMELLING URINE NOTED. PT TOLERATED WELL.
[2021-05-31 21:26] LABS: Appearance,Urine CLOUDY (Clear); Bilirubin,Urine Negative (Negative); Blood, Urine 1+ (Negative); Color,Urine YELLOW (Yellow); Glucose,Urine (UA) Negative (Negative); Ketones,Urine Negative (Negative); Leukocyte Esterase,Urine 2+ (Negative); Nitrate,Urine Negative (Negative); Protein,Urine TRACE (Negative); Specific Gravity, Urine 1.015 (1.005-1.030); Urobilinogen,Urine 0.2 EU/dl (0.2)
[2021-05-31 21:55] LABS: Bacteria,Urine 4+ /lpf
[2021-05-31 21:56] LABS: Triple Phosphate Crystal,Urine 3+ /lpf
--- NOTE | 2021-05-31 22:37 | PC.NURSE ---
Pt's son called for an update, spoke with him for 5 min
--- NOTE | 2021-05-31 22:45 | PC.NURSE ---
Pt moved to hospital bed for comfort. No new needs. Call light within reach.
--- NOTE | 2021-05-31 23:25 | PC.NURSE ---
oral care given to pt, as well as sip ice chips per pt request. Replaced bipap and assisted in repositioning. Pt requesting my anxiety medicine . Per MD, he does not wish to give pt any sedating medications at this time. Pt educated on this.
--- NOTE | 2021-05-31 23:56 | PC.NURSE ---
Obtained vitals at 2356. Pt sleeping well.
[2021-06-01] VITALS (11 sets, daily range): BP systolic 136–194; BP diastolic 59–88; PULSE 65–101; RESP 5–21; TEMP 36.4–37.2; O2SAT 92–100; BMI 28.5; BMI 28.6
--- NOTE | 2021-06-01 01:00 | PC.NURSE ---
Pt sleeping well
--- NOTE | 2021-06-01 02:05 | PC.NURSE ---
No new needs. Pt continues to sleep.
--- NOTE | 2021-06-01 03:17 | PC.NURSE ---
Pt still sleeping well
--- NOTE | 2021-06-01 04:10 | PC.NURSE ---
Pt continues to sleep well
--- NOTE | 2021-06-01 05:20 | PC.NURSE ---
AM labs drawn. No new needs. Pt resting.
--- NOTE | 2021-06-01 05:23 | PC.NURSE ---
RT at bedside
[2021-06-01 05:24] LABS: Basophils % 0.2 % (0.1-2.0); Eosinophils % 0.5 % (0.1-12.0); Hematocrit 35.7 % (37.0-47.0); Hemoglobin 10.6 g/dL (12.2-16.2); Lymphocytes # 0.8 K/mm3 (0.7-4.5); Lymphocytes % 16.6 % (10-50); Mean Corpuscular HGB Conc 29.6 g/dL (31.8-35.4); Mean Corpuscular Hemoglobin 29.5 pg (27.0-31.2); Mean Corpuscular Volume 99.6 fl (81-99); Mean Platelet Volume 7.6 fl (7.4-10.4); Monocytes # 0.1 K/mm3 (0.1-1.0); Monocytes % 2.5 % (1.7-9.3); Neutrophils % 80.2 % (37.0-80.0); Platelet Count 257 K/mm3 (142-424); Red Blood Count 3.58 M/mm3 (4.20-5.40); Red Cell Distribution Width 14.7 % (11.5-17.5)
[2021-06-01 05:41] LABS: Chloride 91 mmol/L (98-107)
[2021-06-01 05:42] LABS: Potassium 4.6 mmoL/L (3.5-5.1); Sodium 140 mmol/L (136-145)
[2021-06-01 05:44] LABS: Blood Urea Nitrogen 18 mg/dl (7-17); Creatinine Clearance Estimated 54 mL/min (50-200); Estimated Glomerular Filt Rate 98 ml/min (>60); GFR (African American) 118 ML/MIN (>60)
[2021-06-01 05:45] LABS: Calcium 8.5 mg/dl (8.4-10.2); Glucose 113 mg/dl (74-100)
[2021-06-01 05:55] LABS: Anion Gap 5.6 mEq/L (5-15); Carbon Dioxide 48 mmol/L (22.0-30.0)
--- NOTE | 2021-06-01 06:05 | PC.NURSE ---
Ordered breakfast tray for pt. No new needs. Pt continues to sleep.
--- NOTE | 2021-06-01 07:04 | HMH.PHAVTE ---
[facility] Pharmacy VTE Monitoring - Patient Demographics Admission date: 05/31/21 Report Date: 06/01/21 Time: 07:04 Allergies/Adverse Reactions: Patient Allergies amoxicillin [AMOXICILLIN] Allergy (Unknown, Verified 05/12/21 15:59) Gastrointestinal Upset Penicillins [PENICILLINS] Allergy (Unknown, Verified 05/12/21 15:59) Gastrointestinal Upset prednisone [PREDNISONE] Adverse Reaction (Unknown, Verified 05/12/21 15:59) Shakiness Height: 1.57 m Weight: 68.946 kg Patient Problems: Current Active Problems Hypoxemic respiratory failure, chronic (Acute) COPD exacerbation (Acute) - VTE Risk Labs: VTE Related Lab Results Hgb 10.6 g/dL (12.2-16.2) L 06/01/21 05:12 Hct 35.7 % (37.0-47.0) L 06/01/21 05:12 Plt Count 257 K/mm3 (142-424) 06/01/21 05:12 BUN 18 mg/dl (7-17) H D 06/01/21 05:12 Creatinine 0.60 mg/dl (0.52-1.04) 06/01/21 05:12 Estimated Creat Clear 54 mL/min (50-200) 06/01/21 05:12 - Prophylaxis VTE Prophylaxis Ordered?: Yes Types of VTE Prophylaxis: TEDS Knee High Location of Applied Device: Bilateral Lower Extremeties
--- NOTE | 2021-06-01 07:14 | PC.NURSE ---
Updated pt's son with labs, intake/output, and labs values. He was on speaker phone with another family member and had a discussion.
--- NOTE | 2021-06-01 07:29 | HMH.PHAINT ---
Home medication list has been verified using [employer] claim history and med-rec from recent visit with one of our providers.
--- NOTE | 2021-06-01 07:34 | PC.NURSE ---
gave report to Shima HERNANDEZ
--- NOTE | 2021-06-01 07:34 | PC.NURSE ---
Report received from Syed Calderon RN. Will send someone down as soon as they are available. K+ runs already administered in the ED so do not give.
--- NOTE | 2021-06-01 08:51 | HMH.HP ---
*Admission Date: 05/31/21 *Chief complaint: Fall at home, dyspnea *History of present illness: 75-year-old white female who has significant COPD, oxygen and neb requiring, who has been at home by herself, but yesterday afternoon she had a fall at home while carrying her walker around the house. She since that time has become extremely dyspneic, tired and fatigued, came to the emergency department yesterday afternoon. Found to have significant hypoxia, respiratory failure superimposed on chronic respiratory failure, eventually was on BiPAP to keep her saturations up and transferred up to the floor on BiPAP. Her son reports that she been increasingly weak. The patient herself does not think she has been that sick, denies a lot of symptoms but does admit that she has been more short of breath than normal. [facility] History I have reviewed the patient's past medical history: Yes Medical History: Reports:: Anxiety, Arrhythmia, Atrial Fibrillation, Chronic Obstructive Pulmonary Disease (COPD), Depression, Home Oxygen, Hyperlipidemia, Hypertension, Internal Pacemaker, Lung Disease, Migraine Denies:: Cancer, Diabetes Mellitus Type 1, Diabetes Mellitus Type 2, MRSA *Have you ever received a pneumonia vaccine?: Yes *Have you received a flu vaccine this season?: Yes Other Medical History: Reports: Hypothyroidism, Thyroid Disease Other Surgeries: Yes: Cardiac Catheterization, Cholecystectomy, Colonoscopy, Hysterectomy-Total, Pacemaker Amputation: No Fractures: No - *Social History Smoking Status: Former smoker Tobacco Type: cigarettes # Packs/Day (cigarettes): 2 #Yrs smoked (if former smoker): 55 Alcohol Intake: never Substance Use Type: denies use *Occupational Status:: retired Housing: house Household Members: none *Travel in the last 8 weeks: None - Psychiatric History Pschychiatric History:: Reports:: Anxiety, Depression Family Hx:: Cancer, Hypertension Review of Systems - Review of Systems Review of systems:: pertinent systems reviewed and negative unless documented below Meds Home Medications Medication Instructions Recorded Confirmed Type Aspirin [Adult Aspirin Regimen] 81 mg PO DAILY 07/16/18 05/31/21 History Atorvastatin Calcium [Lipitor 20mg 20 mg PO DAILY 07/16/18 06/01/21 History Tab] Montelukast Sodium [Montelukast 10 mg PO DAILY 07/16/18 06/01/21 History 10mg Tab] lisinopriL [Lisinopril 5mg 5 mg PO DAILY 07/16/18 05/31/21 History Tablet] carvedilol 6.25 mg tablet 6.25 mg PO BID tab 03/02/20 05/31/21 History Levothyroxine Sodium 50 mcg PO DAILYDM 10/23/20 05/31/21 History [Levothyroxine 50mcg (0.05mg) Tab] Ropinirole HCl 2 mg PO HS 10/23/20 05/31/21 History clonazePAM [Clonazepam] 1 mg PO TID 10/23/20 05/31/21 History donepezil 10 mg tablet 10 mg PO DAILY 30 Days #30 tab 10/28/20 05/31/21 Rx Furosemide [Lasix 20mg tablet] 20 mg PO DIRECTED 04/28/21 05/31/21 History Tiotropium [place] [Spiriva 1 cap INHALATION DAILY 04/28/21 06/01/21 History 18mcg/puff inhaler] Acetaminophen 650 mg PO Q4H PRN 04/29/21 05/31/21 History Buspirone HCl [Buspar 10mg 10 mg PO BID 04/29/21 05/31/21 History tablet] Escitalopram Oxalate 20 mg PO DAILY 04/29/21 05/31/21 History Omeprazole [Omeprazole 20mg 20 mg PO DAILY 04/29/21 05/31/21 History Capsule] Primidone [Mysoline] 150 mg PO Q12H 04/29/21 06/01/21 History Fluticasone/Salmeterol [Advair 1 inh INHALATION BID 05/31/21 05/31/21 History 250/50mcg Diskus] Albuterol Sulfate [Proventil Hfa] 1 inh INHALATION QIDP PRN 06/01/21 06/01/21 History Ipratropium/Albuterol Sulfate 3 ml INHALATION Q6HP PRN 06/01/21 06/01/21 History [Duoneb 3mL neb] Allergies Allergy/AdvReac Type Severity Reaction Status Date / Time amoxicillin [AMOXICILLIN] Allergy Unknown Gastrointestinal Verified 05/12/21 15:59 Upset Penicillins [PENICILLINS] Allergy Unknown Gastrointestinal Verified 05/12/21 15:59 Upset prednisone [PREDNISONE] AdvReac Unknown Shakiness
--- NOTE | 2021-06-01 15:05 | PC.NURSE ---
Pt is alert and oriented x4. Lungs are clear but diminished. She remains on bipap with O2 saturations measuring in the upper 90's. She was transferred to 8L NC high flow for meals then placed back on bipap about an hour after after eating. Some edema noted to ble. Rt foot has some bruising and redness. Some tremors noted to upper extremities. Her dalal is to bedside draining figueroa colored urine. BP was elevated on morning assessment. BP meds were reordered and administered, was much better on reassessment (see VS intervention). Family is at bedside and supportive. No complaints at this time. Bed is locked and in the lowest position, call light within reach.
[2021-06-02] VITALS (11 sets, daily range): BP systolic 132–151; BP diastolic 57–77; PULSE 66–102; RESP 18–20; TEMP 36.6–36.8; O2SAT 84–100; BMI 28.3
[2021-06-02 07:46] LABS: Chloride 92 mmol/L (98-107)
[2021-06-02 07:47] LABS: Potassium 4.3 mmoL/L (3.5-5.1); Sodium 138 mmol/L (136-145)
[2021-06-02 07:49] LABS: Blood Urea Nitrogen 24 mg/dl (7-17); Creatinine Clearance Estimated 54 mL/min (50-200); Estimated Glomerular Filt Rate 82 ml/min (>60); GFR (African American) 99 ML/MIN (>60)
[2021-06-02 07:50] LABS: Calcium 8.4 mg/dl (8.4-10.2); Glucose 127 mg/dl (74-100)
--- NOTE | 2021-06-02 07:50 | HMH.ACPN2 ---
Internal Medicine - PN: Subj *Date: 06/02/21 *Time: 08:30 Interval history: Remained on BiPAP overnight. Somewhat more alert and oriented this morning. Communicating through BiPAP mask. Remains afebrile. No nausea, vomiting, diarrhea. Has transition to nasal cannula for eating. Tolerated it fairly well last night for dinner. Son at bedside, discussed transitioning to nasal cannula today and continuing breathing treatments and steroids. Exam Vital signs and Labs for Last 24 Hours: Temp Pulse Resp BP Pulse Ox 97.9 F 73 20 151/77 H 94 L 06/02/21 04:00 06/02/21 06:20 06/02/21 04:00 06/02/21 04:00 06/02/21 04:00 I & O for Last 24 hours: Intake & Output 05/30/21 05/31/21 06/01/21 06/02/21 23:59 23:59 23:59 23:59 Intake Total 480 / 480 Output Total 200 / 200 1225 / 1225 300 / 300 Balance -200 / -200 -745 / -745 -300 / -300 Weight 68.946 kg 70.7 kg 69.853 kg Microbiology Reports for the Last 24 Hours: Microbiology 05/31/21 21:19 Urine,Catheterized Urine Culture - Preliminary Narrative: - Constitutional moderate distress, chronically ill appearing - *Routine HEENT Exam Head: Present: normocephalic Eye: Present: EOMI, PERRL ENT: Present: mucous membranes moist - *Routine Neck Exam Present: supple. Absent: lymphadenopathy - *Routine Respiratory Exam Present: accessory muscle use, decreased breath sounds, CTA bilaterally, minimal end expiratory wheeze on right - *Routine Cardiovascular Exam Present: RRR - *Routine Abdominal Exam Present: soft, normoactive bowel sounds. Absent: tenderness - *Routine Extremities Exam Absent: cyanosis, clubbing, edema - *Routine Skin Exam Present: warm. Absent: rash - *Routine Neurological Exam Present: alert, oriented X3, Diffuse essential tremor as previously noted. Anxious appearing but no focal deficits. Globally weak Assessment and Plan (1) Acute respiratory failure with hypoxia and hypercarbia Status: Acute Category: Medical Code(s): J96.01 - Acute respiratory failure with hypoxia; J96.02 - Acute respiratory failure with hypercapnia (2) UTI (urinary tract infection) Status: Acute Category: Medical Code(s): N39.0 - Urinary tract infection, site not specified (3) COPD exacerbation Status: Acute Category: Medical Code(s): J44.1 - Chronic obstructive pulmonary disease with (acute) exacerbation (4) Hypoxemic respiratory failure, chronic Status: Acute Category: Medical Code(s): J96.11 - Chronic respiratory failure with hypoxia (5) Anxiety Status: Chronic Category: Medical Code(s): F41.9 - Anxiety disorder, unspecified (6) Essential hypertension Status: Chronic Category: Medical Code(s): I10 - Essential (primary) hypertension (7) Essential tremor Status: Chronic Category: Medical Code(s): G25.0 - Essential tremor - Assessment and plan all Dx Assessment and Plan for all problems:: 75-year-old female with multiple comorbidities including chronic hypoxemic respiratory failure, anxiety, hypertension, essential tremor, restless leg. Presented with acute on chronic hypoxemic respiratory failure with hypercapnia and UTI. Patient appears to be improving with her mentation. Alert and oriented this morning. Afebrile overnight. Will transition off BiPAP to nasal cannula. Urine culture pending. UA concerning for UTI. Continue antibiotics and steroids as ordered for COPD exacerbation and UTI. Continue nebulizer treatment every 6 hours scheduled with every 2 as needed Wean oxygen as tolerated for goal saturation greater 90% Continue home medications for blood pressure, anxiety, mild cognitive impairment, and tremor. Full code Regular diet Continues to require inpatient management.
[2021-06-02 08:02] LABS: Anion Gap 8.3 mEq/L (5-15); Carbon Dioxide 42 mmol/L (22.0-30.0)
--- NOTE | 2021-06-02 08:13 | PC.NURSE ---
Dr. Garcia at bs to see pt.
--- NOTE | 2021-06-02 08:23 | PC.NURSE ---
Switched from CPAP to High Flow NC @ 10L. Pt now sitting up in bed eating breakfast. Given fresh coffee and warm wash rags to wipe her face.
[2021-06-02 10:11] LABS: Hemoglobin 9.7 g/dL (12.2-16.2); Mean Corpuscular HGB Conc 30.3 g/dL (31.8-35.4); Mean Corpuscular Hemoglobin 29.9 pg (27.0-31.2); Mean Corpuscular Volume 98.8 fl (81-99); Platelet Count 248 K/mm3 (142-424); Red Blood Count 3.24 M/mm3 (4.20-5.40)
[2021-06-02 10:12] LABS: Basophils % 0.1 % (0.1-2.0); Lymphocytes % 10.6 % (10-50); Mean Platelet Volume 10.8 fl (7.4-10.4); Monocytes % 2.7 % (1.7-9.3); Neutrophils % 86.3 % (37.0-80.0)
[2021-06-02 10:13] LABS: Lymphocytes # 0.7 K/mm3 (0.7-4.5); Monocytes # 0.2 K/mm3 (0.1-1.0)
[2021-06-02 10:16] LABS: MANUAL DIFFERENTIAL MANUAL DIFFERENTIAL (MANUAL DIFF)
--- NOTE | 2021-06-02 12:23 | PC.NURSE ---
[place] Cath discontinued at this time. Tolerated well. 800mls of dark yellow/brown urine noted in drainage bag.
--- NOTE | 2021-06-02 14:35 | SW/DCPLANNER ---
Addendum entered by Bia Moscoso 06/03/21 12:25: Juju gonzales/ [facility] has stated this patient has been accepted and approved for admission to [facility] today. Patient will require an additional COVID swab prior to discharge today. I have updated patient's son and Dr Garcia. Original Note: I have spoke with this patient and her son (Nona) regarding plans once medically stable for discharge. PT/OT evaluated this patient and stated that patient would benefit from placement at time of discharge. Patient and son agree to placement and prefer to [facility]. Juju with [facility] confirmed that they do have a female bed available. Patient information will be faxed to [facility] today. Discharge date is unknown at this time. I will continue to follow up with patient, son and MD.
--- NOTE | 2021-06-02 15:00 | HMH.PTEV ---
Physical Therapy Evaluation Rehab PT IP Evaluation Start: 06/02/21 13:00 Freq: ONCE Status: Active Protocol: Document 06/02/21 14:52 GILDAJUAN (Rec: 06/02/21 15:00 WILLIAN [id number]) Subjective/History History History 75-year-old white female who has significant COPD, oxygen and neb requiring, who has been at home by herself, but yesterday afternoon she had a fall at home while carrying her walker around the house. She since that time has become extremely dyspneic, tired and fatigued, came to the emergency department yesterday afternoon. Copied from H&P Subjective Subjective Pt reports she needs to use the restroom Rehab PT IP Eval Objective Appearance Patient Behavior Cooperative,Impulsive, Wandering,Confused Patient Orientation Place,Name,Birthday Difficulty following instructions moderate Speech Pattern Clear,Spontaneous Speech Ambulation Patient Able to Ambulate Yes Ambulation Observation IP General Gait Pattern Observation Ataxic Gait,Shuffling Step Ambulation Distance (feet) 30 Ambulation Assistive Device Rolling Walker Ambulation Ability Minimal x 2 (25% assist), Moderate x 2 (50% assist) Balance Ability to Arise Unable Sitting Balance Steady, safe Standing Balance Unsteady Dynamic Sitting Balance Ability Good Dynamic Standing Balance Ability Poor Transfers Bed Transfer Ability Supervision/Stand by,Contact Guard/Hand Hold Chair Transfer Ability Supervision/Stand by,Contact Guard/Hand Hold Sit to Stand Bed Transfer Ability Moderate x 2 (50% assist) Sit to Stand Chair Transfer Ability Moderate x 2 (50% assist) Rehab PT IP prob,goals,plan Problems Date of Evaluation: 06/02/21 PT IP Problems Transfers,Gait,Balance,Self care,Safety Rehab Potential Rehab Potential Fair Equipment Needs Assistive Devices Rolling / Wheeled Walker Plan PT Intervention Plan Transfers,Gait,Self care, Safety,Therapeutic Exercise PT Plan Frequency BID Duration LOS Discharge Goals Bed Transfer Ability Supervision/Stand by Sit to Stand Chair Transfer Ability Moderate x 2
--- NOTE | 2021-06-02 15:09 | HMH.OTEV ---
OT Inpatient Evaluation Rehab OT IP Evaluation Start: 06/02/21 13:00 Freq: ONCE Status: Complete Protocol: Document 06/02/21 15:03 HEMALATHAADAN (Rec: 06/02/21 15:09 MARIANNE [id number]) Rehab OT IP Assessment Subjective History 75-year-old white female who has significant COPD, oxygen and neb requiring, who has been at home by herself, but yesterday afternoon she had a fall at home while carrying her walker around the house. She since that time has become extremely dyspneic, tired and fatigued, came to the emergency department yesterday afternoon. Found to have significant hypoxia, respiratory failure superimposed on chronic respiratory failure, eventually was on BiPAP to keep her saturations up and transferred up to the floor on BiPAP. Her son reports that she been increasingly weak. The patient herself does not think she has been that sick, denies a lot of symptoms but does admit that she has been more short of breath than normal. [facility] History I have reviewed the patient's past medical history: Yes Medical History: Reports:: Anxiety, Arrhythmia, Atrial Fibrillation, Chronic Obstructive Pulmonary Disease (COPD), Depression, Home Oxygen, Hyperlipidemia, Hypertension, Internal Pacemaker, Lung Disease, Migraine. Patient lives in 1 story home alone with no GIOVANNA. Patient used RW to ambulate within home. However Patient will tend to carry the RW during ambulation which resulted in recent fall that leaded to the
--- NOTE | 2021-06-02 16:06 | PC.NURSE ---
called to check on pt's status. Phone order received to decrease O2 to 8L NC. R/V.
--- NOTE | 2021-06-02 19:12 | PC.NURSE ---
report to nightshift nurse
[2021-06-03 00:48] VITALS: O2SAT 99
[2021-06-03 04:39] VITALS: BP 151/62; PULSE 83; RESP 18; TEMP 36; O2SAT 96
--- NOTE | 2021-06-03 04:42 | PC.NURSE ---
Patient rested well throughout night. Patient now wean to 3L NC sating in to high 90's. VSS.
[2021-06-03 05:00] VITALS: BMI 28.8
[2021-06-03 06:16] VITALS: PULSE 83; PULSE 92; O2SAT 98
[2021-06-03 06:38] LABS: Basophils % 0.1 % (0.1-2.0); Eosinophils % 0.1 % (0.1-12.0); Hematocrit 33.3 % (37.0-47.0); Lymphocytes # 0.5 K/mm3 (0.7-4.5); Lymphocytes % 6.1 % (10-50); Mean Corpuscular HGB Conc 30.1 g/dL (31.8-35.4); Mean Corpuscular Hemoglobin 30.2 pg (27.0-31.2); Mean Corpuscular Volume 100.4 fl (81-99); Mean Platelet Volume 8.1 fl (7.4-10.4); Monocytes # 0.2 K/mm3 (0.1-1.0); Monocytes % 2.4 % (1.7-9.3); Neutrophils # 7.6 K/mm3 (1.8-7.8); Neutrophils % 91.3 % (37.0-80.0); Platelet Count 276 K/mm3 (142-424); Red Blood Count 3.32 M/mm3 (4.20-5.40); Red Cell Distribution Width 16.3 % (11.5-17.5); White Blood Count 8.3 K/mm3 (4.8-10.8)
[2021-06-03 06:39] LABS: MANUAL DIFFERENTIAL MANUAL DIFFERENTIAL (MANUAL DIFF)
[2021-06-03 06:59] LABS: Chloride 92 mmol/L (98-107); Potassium 4.4 mmoL/L (3.5-5.1); Sodium 138 mmol/L (136-145)
--- NOTE | 2021-06-03 07:00 | HMH.ACPN2 ---
Internal Medicine - PN: Subj *Date: 06/03/21 *Time: 07:00 Exam Vital signs and Labs for Last 24 Hours: Temp Pulse Resp BP Pulse Ox 96.8 F L 92 H 18 151/62 H 98 06/03/21 04:39 06/03/21 06:16 06/03/21 04:39 06/03/21 04:39 06/03/21 06:16 Laboratory Results - last 24 hr 06/02/21 06:42: WBC 7.0 D, RBC 3.24 L, Hgb 9.7 L, Hct 32.0 L, MCV 98.8, MCH 29.9, MCHC 30.3 L, RDW 15.0, Plt Count 248, MPV 10.8 H, Neut % (Auto) 86.3 H, Lymph % (Auto) 10.6, [place] % (Auto) 2.7, Eos % (Auto) 0.0 L, Baso % (Auto) 0.1, Neut # (Auto) 6.0, Lymph # (Auto) 0.7, [place] # (Auto) 0.2, Eos # (Auto) 0.0, Baso # (Auto) 0.0, Total Counted TNP, Platelet Estimate TNP, RBC Morphology TNP 06/02/21 06:42: Sodium 138, Potassium 4.3, Chloride 92 L, Carbon Dioxide 42 H*, Anion Gap 8.3, BUN 24 H D, Creatinine 0.70, Estimated Creat Clear 54, Estimated GFR 82, Est GFR ( Amer) 99, Glucose 127 H, Calcium 8.4 06/03/21 05:48: WBC 8.3, RBC 3.32 L, Hgb 10.0 L, Hct 33.3 L, MCV 100.4 H, MCH 30.2, MCHC 30.1 L, RDW 16.3, Plt Count 276, MPV 8.1, Neut % (Auto) 91.3 H, Lymph % (Auto) 6.1 L, [place] % (Auto) 2.4, Eos % (Auto) 0.1, Baso % (Auto) 0.1, Neut # (Auto) 7.6, Lymph # (Auto) 0.5 L, [place] # (Auto) 0.2, Eos # (Auto) 0.0, Baso # (Auto) 0.0 I & O for Last 24 hours: Intake & Output 05/31/21 06/01/21 06/02/21 06/03/21 23:59 23:59 23:59 23:59 Intake Total 480 / 480 600 / 600 Output Total 200 / 200 1225 / 1225 1100 / 1100 Balance -200 / -200 -745 / -745 -500 / -500 Weight 68.946 kg 70.7 kg 69.853 kg 70.942 kg Microbiology Reports for the Last 24 Hours: Microbiology 05/31/21 21:19 Urine,Catheterized Urine Culture - Preliminary Assessment and Plan (1) Acute respiratory failure with hypoxia and hypercarbia Status: Acute Category: Medical Code(s): J96.01 - Acute respiratory failure with hypoxia; J96.02 - Acute respiratory failure with hypercapnia (2) UTI (urinary tract infection) Status: Acute Category: Medical Code(s): N39.0 - Urinary tract infection, site not specified (3) COPD exacerbation Status: Acute Category: Medical Code(s): J44.1 - Chronic obstructive pulmonary disease with (acute) exacerbation (4) Hypoxemic respiratory failure, chronic Status: Acute Category: Medical Code(s): J96.11 - Chronic respiratory failure with hypoxia (5) Anxiety Status: Chronic Category: Medical Code(s): F41.9 - Anxiety disorder, unspecified (6) Essential hypertension Status: Chronic Category: Medical Code(s): I10 - Essential (primary) hypertension (7) Essential tremor Status: Chronic Category: Medical Code(s): G25.0 - Essential tremor
[2021-06-03 07:02] LABS: Alanine Aminotransferase 10 U/L (12-78); Albumin Level 3.3 g/dl (3.5-5.0); Albumin/Globulin Ratio 1.6 (1.1-1.8); Alkaline Phosphatase 91 U/L (38-126); Aspartate Amino Transferase 24 U/L (14-36); Bilirubin,Total 0.3 mg/dl (0.2-1.3); Blood Urea Nitrogen 26 mg/dl (7-17); Creatinine Clearance Estimated 55 mL/min (50-200); Estimated Glomerular Filt Rate 98 ml/min (>60); GFR (African American) 118 ML/MIN (>60); Globulin 2.1 g/dL (1.3-3.2); Glucose 146 mg/dl (74-100); Magnesium 1.9 mg/dl (1.6-2.3); Total Protein,Serum 5.4 g/dl (6.3-8.2)
[2021-06-03 07:10] LABS: Anion Gap 7.4 mEq/L (5-15); Carbon Dioxide 43 mmol/L (22.0-30.0)
[2021-06-03 07:12] LABS: Lymphocytes % 13 % (10-50); Monocytes % 4 % (2-9); Neutrophils % 83 % (42-76); Total Cells Counted 100
[2021-06-03 07:13] LABS: Platelet Estimate Normal; RBC Morphology Normal
[2021-06-03 07:36] VITALS: BP 140/54; PULSE 76; RESP 18; TEMP 36.4; O2SAT 95
[2021-06-03 08:15] VITALS: PULSE 87; PULSE 88
[2021-06-03 12:43] LABS: Coronavirus 19, PCR Not Detected (NotDetected); Influenza A, PCR Not Detected (NotDetected); Influenza B, PCR Not Detected (NotDetected)
--- NOTE | 2021-06-03 13:30 | HMH.DCSUM ---
General - General Admission date:: 05/31/21 Discharge date: 06/03/21 HPI HPI: 75-year-old white female who has significant COPD, oxygen and neb requiring, who has been at home by herself, but yesterday afternoon she had a fall at home while carrying her walker around the house. She since that time has become extremely dyspneic, tired and fatigued, came to the emergency department yesterday afternoon. Found to have significant hypoxia, respiratory failure superimposed on chronic respiratory failure, eventually was on BiPAP to keep her saturations up and transferred up to the floor on BiPAP. Her son reports that she been increasingly weak. The patient herself does not think she has been that sick, denies a lot of symptoms but does admit that she has been more short of breath than normal. Hospital Course Hospital Course: 75-year-old female with multiple comorbidities including chronic hypoxemic respiratory failure, anxiety, hypertension, essential tremor, restless leg. Presented with acute on chronic hypoxemic respiratory failure with hypercapnia and UTI. Patient has shown good response to BiPAP with improvement in mentation. Was able to transition to nasal cannula oxygen. Weaned over the course of 36 hours from 10 L to 2-1/2 L. Stable on 2-1/2 L for over 24 hours prior to discharge. Has remained afebrile during admission. Tolerating breathing treatments, antibiotics, steroids. In regard to infectious disease, urine culture has not grown any identifiable pathogens. Antibiotics at this time only for COPD exacerbation. During admission, her home medications for blood pressure, anxiety, mild cognitive impairment, and tremor were all continued. Tolerated regular diet without difficulty. PT and OT assessed patient while admitted, given her status of living by herself, high risk for fall and injury, and debility with acute illness, recommendations for skilled placement prior to getting home. Patient referred to [facility] and will discharge there today. Controlled substances (Klonopin, primidone) sent to [facility] pharmacy in [place] via [facility]. Full code during admission. Objective Vital signs: Temp Pulse Resp BP Pulse Ox 97.6 F 87 18 140/54 L 95 06/03/21 07:36 06/03/21 08:15 06/03/21 07:36 06/03/21 07:36 06/03/21 07:36 Narrative: - Constitutional No acute distress on 2 and half liters nasal cannula oxygen. chronically ill appearing - *Routine HEENT Exam Head: Present: normocephalic Eye: Present: EOMI, PERRL ENT: Present: mucous membranes moist - *Routine Neck Exam Present: supple. Absent: lymphadenopathy - *Routine Respiratory Exam Present: accessory muscle use, decreased breath sounds, CTA bilaterally, minimal end expiratory wheeze bilaterally - *Routine Cardiovascular Exam Present: RRR - *Routine Abdominal Exam Present: soft, normoactive bowel sounds. Absent: tenderness - *Routine Extremities Exam Absent: cyanosis, clubbing, edema - *Routine Skin Exam Present: warm. Absent: rash - *Routine Neurological Exam Present: alert, oriented X3, Diffuse essential tremor as previously noted. Anxious appearing but no focal deficits. Globally weak Results Labs on day of discharge: Labs from last 24 hours 06/03/21 06/03/21 06/03/21 12:37 05:48 05:48 WBC 8.3 RBC 3.32 L Hgb 10.0 L Hct 33.3 L MCV 100.4 H MCH 30.2 MCHC 30.1 L RDW 16.3 Plt Count 276 MPV 8.1 Neut % (Auto) 91.3 H Lymph % (Auto) 6.1 L Simpson % (Auto) 2.4 Eos % (Auto) 0.1 Baso % (Auto) 0.1 Neut # (Auto) 7.6 Lymph # (Auto) 0.5 L Simpson # (Auto) 0.2 Eos # (Auto) 0.0 Baso # (Auto) 0.0 Total Counted 100 Neutrophils % (Manual) 83 H Lymphocytes % (Manual) 13 Monocytes % (Manual) 4 Platelet Estimate Normal RBC Morphology Normal Sodium 138 Potassium 4.4 Chloride 92 L Carbon Dioxide 43 H* Anion Gap
--- NOTE | 2021-06-03 14:38 | PC.NURSE ---
report called to don at [facility]. Prednisone ordered but patient notef to have an adverse reaction listed. Dr. Garcia's office called and part time receptionist said she would have Dr. Garcia call back
--- NOTE | 2021-06-03 14:50 | PC.NURSE ---
Spoke to Dr. Garcia who stated he was ok with patient taking prednisone as she has been receiving IV methylprednisone here as a patient in hospital with no allergic reactions. Called Celena at [facility] and updated.
[2021-06-03 14:55] VITALS: PULSE 69; O2SAT 98
--- NOTE | 2021-06-06 15:40 | CARE MANAGER ---
Contacted [facility] to follow up on patient following hospital discharge. Nurse states she is doing well and using walker to ambulate. Denies any questions or concerns.
== END 2021-06-03 15:45 | DRG 189 ==
LOC: ER 20:08 → 2ND 20:19
PROVIDERS: Internal Medicine Adolescent Medicine; Admitting Provider Emergency Medicine; Emergency Provider Emergency Medicine; PCP Internal Medicine Adolescent Medicine; Visit Provider Internal Medicine Adolescent Medicine
DX: J96.21 Acute and chronic respiratory failure with hypoxia (principal); J44.1 Chronic obstructive pulmonary disease with (acute) exacerbation; N39.0 Urinary tract infection, site not specified; W19.XXXA Unspecified fall, initial encounter; F41.9 Anxiety disorder, unspecified; Z20.822 Contact with and (suspected) exposure to COVID-19; I48.91 Unspecified atrial fibrillation; Z99.81 Dependence on supplemental oxygen; Z95.0 Presence of cardiac pacemaker; Z87.891 Personal history of nicotine dependence; E78.5 Hyperlipidemia, unspecified; I10 Essential (primary) hypertension; E03.9 Hypothyroidism, unspecified; G25.81 Restless legs syndrome; M25.472 Effusion, left ankle; M25.471 Effusion, right ankle; F32.A Depression, unspecified
CPT/HCPCS: 36415; 51702; 71045; 73630; 80048; 80053; 81001; 82803; 83735; 83880; 85007; 85025; 87086; 87186; 93005; 94640; 94660; 94761; 96375; 97110; 97116; 97162; 97165; 97530; 99285; C9803; J0696; U0003; U0005

== ENCOUNTER 2021-06-20 14:09 | Observation (INO) | payer MEDICARE, MEDICAID, SELFPAY ==
[2021-06-20] VITALS (13 sets, daily range): BP systolic 139–185; BP diastolic 63–81; PULSE 83–92; RESP 18–28; TEMP 36.8–37.2; O2SAT 90–98; BMI 19.3; BMI 26.1
--- NOTE | 2021-06-20 | ECG_ITS ---
APPROVED REPORT Exam: Resting ECG HR:114 bpm ECG Measurements Heart Rate 114 AXES NV 108 P 235 QRSd QRS 0 QT 202 T 41 QTc 270 Conclusion UNCERTAIN IRREGULAR RHYTHM ELECTRONIC VENTRICULAR PACEMAKER -- CONTOUR ANALYSIS BASED ON INTRINSIC RHYTHM POSSIBLE LEFT ATRIAL ENLARGEMENT [-0.1mV P-WAVE IN V1/V2] INDETERMINATE AXIS CRITICAL TEST RESULT UNCONFIRMED REPORT Electronically signed by : Darrell De MD 06/20/2021 15:48:24
--- NOTE | 2021-06-20 14:21 | PC.NURSE ---
MARY Schumacher at BS
--- NOTE | 2021-06-20 16:52 | PC.NURSE ---
ED MD at speaking with patient
--- NOTE | 2021-06-20 16:56 | PC.NURSE ---
speaking with family at bs.
--- NOTE | 2021-06-20 17:14 | XR_ITS ---
PROCEDURE INFORMATION: Exam: XR Pelvis Exam date and time: 06/20/2021 5:23 PM Age: 75 years old Clinical indication: Injury or trauma; Fall; Blunt trauma (contusions or hematomas); Bilateral; Pelvic region; Injury date: 06/20/21 TECHNIQUE: Imaging protocol: XR pelvis. Views: 1 or 2 view. COMPARISON: CR HIPCMRT XR hip RT 2-3V w/pelvis 08/24/2017 3:48 PM FINDINGS: Bones/joints: There is mild irregularity in the region of the right ischium and inferior pubic ramus. Findings suggest mild chronic posttraumatic deformity. No evidence of acute osseous injury. Soft tissues: Unremarkable. IMPRESSION: No evidence of acute osseous injury.
--- NOTE | 2021-06-20 17:14 | XR_ITS ---
The is PROCEDURE INFORMATION: Exam: XR Chest Exam date and time: 06/20/2021 5:23 PM Age: 75 years old Clinical indication: Shortness of breath; Additional info: Fall TECHNIQUE: Imaging protocol: XR of the chest. Views: 1 view. COMPARISON: CR XR CHEST PORTABLE 05/31/2021 5:27 PM FINDINGS: Tubes, catheters and devices: Pacemaker device again demonstrated. Lungs: Hyperlucent changes in the upper lungs. Findings stable. Calcified granuloma right upper lung. Pleural spaces: Unremarkable. No pleural effusion. No pneumothorax. Heart/Mediastinum: Unremarkable. No cardiomegaly. Bones/joints: Unremarkable. IMPRESSION: 1. No evidence of acute cardiopulmonary disease. 2. Hyperlucent changes within the upper lungs. Findings suggesting mild changes of chronic obstructive pulmonary disease. 3. Evidence of previous granulomatous disease.
--- NOTE | 2021-06-20 17:14 | CT_ITS ---
PROCEDURE INFORMATION: Exam: CT Cervical Spine Without Contrast Exam date and time: 06/20/2021 5:28 PM Age: 75 years old Clinical indication: Injury or trauma; Fall; Blunt trauma; Injury date: 06/20/21 TECHNIQUE: Imaging protocol: Computed tomography images of the cervical spine without contrast. Radiation optimization: All CT scans at this facility use at least one of these dose optimization techniques: automated exposure control; mA and/or kV adjustment per patient size (includes targeted exams where dose is matched to clinical indication); or iterative reconstruction. COMPARISON: CR XR CERVICAL SPINE W FLEX/EXT 07/16/2020 12:32 PM FINDINGS: Bones/joints: Generalized osteopenia. Mild scoliosis of the cervical spine convexity to the left. Multilevel hypertrophic facet changes. Discs/Spinal canal/Neural foramina: No significant disc protrusion. No severe spinal canal stenosis. No significant neural foraminal narrowing. Lungs: Lung apices are normal. Soft tissues: Unremarkable. IMPRESSION: No evidence of acute osseous injury.
--- NOTE | 2021-06-20 17:14 | CT_ITS ---
PROCEDURE INFORMATION: Exam: CT Head Without Contrast Exam date and time: 06/20/2021 5:28 PM Age: 75 years old Clinical indication: Injury or trauma; Fall; Blunt trauma (contusions or hematomas); Consciousness not specified; Injury date: 06/20/21 TECHNIQUE: Imaging protocol: Computed tomography of the head without contrast. Radiation optimization: All CT scans at this facility use at least one of these dose optimization techniques: automated exposure control; mA and/or kV adjustment per patient size (includes targeted exams where dose is matched to clinical indication); or iterative reconstruction. COMPARISON: CR XR CERVICAL SPINE W FLEX/EXT 07/16/2020 12:32 PM FINDINGS: Brain: No intracranial hemorrhage. No evidence of acute territorial infarct or cerebral edema. Mild prominence of the cortical sulci consistent with age-appropriate intracerebral volume loss. Periventricular white matter tract changes consistent with microvascular disease. No mass effect or midline shift. Cerebral ventricles: No ventriculomegaly. Paranasal sinuses: Visualized sinuses are unremarkable. No fluid levels. Mastoid air cells: Visualized mastoid air cells are well aerated. Bones/joints: Unremarkable. No acute fracture. Soft tissues: Unremarkable. IMPRESSION: 1. No evidence of acute intracranial abnormality. 2. Age-appropriate intracerebral volume loss.
[2021-06-20 17:27] LABS: Basophils % 0.4 % (0.1-2.0); Chloride 90 mmol/L (98-107); Eosinophils # 0.1 K/mm3 (0.0-0.4); Hematocrit 37.5 % (37.0-47.0); Hemoglobin 11.7 g/dL (12.2-16.2); Lymphocytes % 10.2 % (10-50); Mean Corpuscular HGB Conc 31.2 g/dL (31.8-35.4); Mean Corpuscular Hemoglobin 31.3 pg (27.0-31.2); Mean Corpuscular Volume 100.3 fl (81-99); Monocytes # 0.6 K/mm3 (0.1-1.0); Monocytes % 5.4 % (1.7-9.3); Neutrophils # 8.3 K/mm3 (1.8-7.8); Platelet Count 235 K/mm3 (142-424); Potassium 4.9 mmoL/L (3.5-5.1); Red Blood Count 3.74 M/mm3 (4.20-5.40); Red Cell Distribution Width 14.6 % (11.5-17.5); Sodium 136 mmol/L (136-145)
[2021-06-20 17:29] LABS: Alanine Aminotransferase 18 U/L (12-78); Aspartate Amino Transferase 33 U/L (14-36); Blood Urea Nitrogen 16 mg/dl (7-17); Creatinine Clearance Estimated 39 mL/min (50-200); Estimated Glomerular Filt Rate 82 ml/min (>60); GFR (African American) 99 ML/MIN (>60)
[2021-06-20 17:30] LABS: Albumin Level 3.8 g/dl (3.5-5.0); Albumin/Globulin Ratio 1.3 (1.1-1.8); Alkaline Phosphatase 139 U/L (38-126); Bilirubin,Total 0.2 mg/dl (0.2-1.3); Calcium 8.9 mg/dl (8.4-10.2); Globulin 2.9 g/dL (1.3-3.2); Glucose 125 mg/dl (74-100); Total Protein,Serum 6.7 g/dl (6.3-8.2)
[2021-06-20 17:32] LABS: VBG Base Excess 17.4 mmol/L (-2.4-2.3); VBG HCO3 46.5 mmol/L (23-30); VBG Oxygen Saturation 85.9 % (50-70); VBG PO2 58.5 mmol/L (28-40); VBG Total CO2 50.7 mmol/L (23-27)
[2021-06-20 17:34] LABS: VBG PCO2 139.6 mmol/L (35-51); VBG PH 7.14 mmol/L (7.31-7.41)
--- NOTE | 2021-06-20 17:35 | PC.NURSE ---
Patient back from CT with veterinary technologist by yasmin
[2021-06-20 17:39] LABS: Anion Gap 8.9 mEq/L (5-15); Carbon Dioxide 42 mmol/L (22.0-30.0)
--- NOTE | 2021-06-20 17:45 | PC.NURSE ---
aware of VBG
--- NOTE | 2021-06-20 17:52 | PC.NURSE ---
RESPIRATORY AT BEDSIDE, SPOKE WITH MD ABOUT VBG. VERBAL ORDER TO REMOVED C-COLLAR AND APPLY BI-PAP
--- NOTE | 2021-06-20 18:41 | PC.NURSE ---
RT at BS
[2021-06-20 18:59] LABS: Coronavirus 19, PCR Not Detected (NotDetected); Influenza A, PCR Not Detected (NotDetected); Influenza B, PCR Not Detected (NotDetected)
[2021-06-20 20:03] LABS: Microscopic, Urine URINE MICROSCOPIC (MICROSCOPIC)
[2021-06-20 20:12] LABS: Appearance,Urine CLOUDY (Clear); Bilirubin,Urine Negative (Negative); Blood, Urine 1+ (Negative); Color,Urine YELLOW (Yellow); Glucose,Urine (UA) Negative (Negative); Ketones,Urine Negative (Negative); Leukocyte Esterase,Urine 2+ (Negative); Nitrate,Urine POSITIVE (Negative); Protein,Urine TRACE (Negative); Urobilinogen,Urine 0.2 EU/dl (0.2)
[2021-06-20 20:39] LABS: Bacteria,Urine 4+ /lpf; Triple Phosphate Crystal,Urine 2+ /lpf
--- NOTE | 2021-06-20 20:52 | PC.NURSE ---
ATTEMPT TO CALL REPORT. NO ANSWER ON NURSE PHONE.
--- NOTE | 2021-06-20 21:17 | HMH.EDGENADL ---
ED Disposition Clinical Impression: Hypercapnic respiratory failure Qualifiers: Chronicity: acute on chronic Qualified Code(s): J96.22 - Acute and chronic respiratory failure with hypercapnia Disposition: Admitted As Inpatient Condition on Discharge: [facility] - Critical Care Critical Care Time: No Attestation: On 06/20/21, the high probability of a clinically significant, sudden or life threatening deterioration of the following system(s) required my full and direct attention, intervention and personal management. The time I documented below is in addition to time spent performing reported procedures but includes the following listed in this critical care notation. Medical Decision Making - Dominick Inquiry Pt receiving controlled substance: No Vital Signs: 06/20/21 14:07 06/20/21 14:16 06/20/21 14:30 Temperature 98.3 F Temperature Source Oral Pulse Rate 88 88 Pulse Rate [Right Radial] 86 Respiratory Rate 20 Blood Pressure 145/63 H 159/72 H Blood Pressure [Right Arm] 139/73 Blood Pressure Mean [Right Arm] 95 Blood Pressure Source Automatic Cuff Manual Cuff/ Palpation Blood Pressure Source [Right Arm] Automatic Cuff Blood Pressure Position Sitting Sitting Blood Pressure Position [Right Arm] Sitting 02 Sat by Pulse Oximetry 91 L 96 96 Oxygen Delivery Method Nasal Cannula Nasal Cannula Nasal Cannula Oxygen Flow Rate (LPM) 3.5 3.5 3.5 06/20/21 15:00 06/20/21 15:48 06/20/21 16:00 Temperature Temperature Source Pulse Rate 92 H 92 H 91 H Pulse Rate [Right Radial] Respiratory Rate Blood Pressure 168/71 H 175/76 H 185/76 H Blood Pressure [Right Arm] Blood Pressure Mean [Right Arm] Blood Pressure Source Automatic Cuff Automatic Cuff Blood Pressure Source [Right Arm] Blood Pressure Position Sitting Sitting Blood Pressure Position [Right Arm] 02 Sat by Pulse Oximetry 98 95 91 L Oxygen Delivery Method Nasal Cannula Nasal Cannula Nasal Cannula Oxygen Flow Rate (LPM) 3.5 3.5 3.5 06/20/21 16:30 06/20/21 17:06 06/20/21 19:55 Temperature Temperature Source Pulse Rate 90 89 83 Pulse Rate [Right Radial] Respiratory Rate Blood Pressure 157/79 H 160/74 H Blood Pressure [Right Arm] Blood Pressure Mean [Right Arm] Blood Pressure Source Automatic Cuff Automatic Cuff Blood Pressure Source [Right Arm] Blood Pressure Position Sitting Sitting Blood Pressure Position [Right Arm] 02 Sat by Pulse Oximetry 92 L 92 L Oxygen Delivery Method Nasal Cannula Nasal Cannula Oxygen Flow Rate (LPM) 3.5 3.5 06/20/21 21:05 Temperature 98.9 F Temperature Source Pulse Rate 89 Pulse Rate [Right Radial] Respiratory Rate 18 Blood Pressure 142/81 H Blood Pressure [Right Arm] Blood Pressure Mean [Right Arm] Blood Pressure Source Blood Pressure Source [Right Arm] Blood Pressure Position Sitting Blood Pressure Position [Right Arm] 02 Sat by Pulse Oximetry Oxygen Delivery Method BiPAP Oxygen Flow Rate (LPM) 35 - Lab Data Lab Results 06/20/21 15:00: WBC 10.0, RBC 3.74 L, Hgb 11.7 L, Hct 37.5, MCV 100.3 H, MCH 31.3 H, MCHC 31.2 L, RDW 14.6, Plt Count 235, MPV 9.0, Neut % (Auto) 83.0 H, Lymph % (Auto) 10.2, Lanier % (Auto) 5.4, Eos % (Auto) 1.0, Baso % (Auto) 0.4, Neut # (Auto) 8.3 H, Lymph # (Auto) 1.0, Lanier # (Auto) 0.6, Eos # (Auto) 0.1, Baso # (Auto) 0.0 06/20/21 15:00: Sodium 136, Potassium 4.9, Chloride 90 L, Carbon Dioxide 42 H*, Anion Gap 8.9, BUN 16, Creatinine 0.70, Estimated Creat Clear 39, Estimated GFR 82, Est GFR ( Amer) 99, Glucose 125 H, Calcium 8.9, Total Bilirubin 0.2, AST 33, ALT 18, Alkaline Phosphatase 139 H, Total Protein 6.7, Albumin 3.8, Globulin 2.9, Albumin/Globulin Ratio 1.3 06/20/21 17:14: VBG pH 7.14 L, VBG pCO2 139.6 H, VBG pO2 58.5 H, VBG HCO3 46.5 H, VBG Total CO2 50.7 H, VBG O2 Saturation 85.9 H, VBG Base Excess 17.4 H 06/20/21 18:50: SARS-CoV-2 (PCR) Not detected, Influenza A Untype (PCR) Not detected, Influenza Type B (P
--- NOTE | 2021-06-20 21:32 | PC.NURSE ---
PT ARRIVED TO FLOOR VIA STRETCHER FROM ED W/STAFF @ [phone]
--- NOTE | 2021-06-20 21:48 | PC.NURSE ---
pt admitted to 215 from ED, bipap placed on pt, pt's family left, pt states too tired to answer all these questions, I'm ready for bed ; will retry to get admission questions later
[2021-06-21] VITALS (12 sets, daily range): BP systolic 106–168; BP diastolic 54–75; PULSE 88–109; RESP 17–24; TEMP 36.6–38.8; O2SAT 90–100; BMI 26.1
--- NOTE | 2021-06-21 05:42 | PC.NURSE ---
pt wanted bipap off for a little bit as is making her anxious, Danika RT attempted to put nasal cannula on pt, but pt desatted into 70's so put bipap back on; notified MD Son of this and that pt has temp of 101.5 axillary this am, ordered 650mg tylenol po prn for fever
--- NOTE | 2021-06-21 07:48 | HMH.HP ---
*Admission Date: 06/20/21 *Chief complaint: Altered mental status, short of breath *History of present illness: 75-year-old white female who has Dementia, significant COPD, oxygen and neb requirmenmts. Presented to the ED from home with recent History of multiple falls. Patient evidence of trauma on physical exam, ER assessed a GCS 13, with patient's son stating that this is not consistent with the patient's baseline. Moving all 4 extremities. Concern for stroke versus COPD exacerbation on arrival. Imaging and labs were obtained. CT noncontrast head obtained not showing evidence of bleed or acute intracranial abnormality. Patient was placed in c-collar in the emergency department and CT of C-spine did not show any acute osseous deformities. Chest x-ray showed pulmonary disease without any acute findings. CBC normal. Metabolic panel baseline for her. VBG with severely elevated CO2. Initiated on BiPAP and breathing treatments. Admitted to medicine for further management. Started on broad-spectrum antibiotics and steroids. Urine obtained with concern for UTI again. On rounds this morning, son is at bedside. Her presentation is very similar to last admission. Has been having more falls since discharge. Was actually discharged to [place] for a few days, did better with therapy. After getting home has declined again. Discussed the severity of her end-stage COPD. No nausea or vomiting this morning. Patient is febrile this morning. He needs to have difficulty breathing but is also complaining of not wanting to wear the mask for her BiPAP. Laced on nasal cannula oxygen for sake of questioning this morning, desaturated to the low 80s within a few minutes. Her son reports that she been increasingly weak. [facility] History I have reviewed the patient's past medical history: Yes Medical History: Reports:: Anxiety, Arrhythmia, Atrial Fibrillation, Chronic Obstructive Pulmonary Disease (COPD), Depression, Heart Murmur, Home Oxygen, Hyperlipidemia, Hypertension, Internal Pacemaker, Lung Disease, Migraine Denies:: Cancer, Diabetes Mellitus Type 1, Diabetes Mellitus Type 2, MRSA *Have you ever received a pneumonia vaccine?: Yes (pt stated had it at 's office ) *Have you received a flu vaccine this season?: Yes (pt stated had it at 's office ) Other Medical History: Reports: Arthritis, Hypothyroidism, Thyroid Disease Other Surgeries: Yes: Cardiac Catheterization, Cholecystectomy, Colonoscopy, Hysterectomy-Total, Pacemaker Amputation: No Fractures: No - *Social History Smoking Status: Former smoker Tobacco Type: cigarettes # Packs/Day (cigarettes): 2 #Yrs smoked (if former smoker): 55 Alcohol Intake: never Substance Use Type: denies use *Occupational Status:: retired Housing: house Household Members: none *Travel in the last 8 weeks: None - Psychiatric History Pschychiatric History:: Reports:: Anxiety, Depression Family Hx:: Cancer, Hypertension Review of Systems - Review of Systems Review of systems:: pertinent systems reviewed and negative unless documented below (14 point review of systems performed, pertinent positives and negatives as per HPI) Meds Home Medications Medication Instructions Recorded Confirmed Type Aspirin [Adult Aspirin Regimen] 81 mg PO DAILY 07/16/18 06/21/21 History Atorvastatin Calcium [Lipitor 20mg 20 mg PO DAILY 07/16/18 06/21/21 History Tab] Montelukast Sodium [Montelukast 10 mg PO HS 07/16/18 06/21/21 History 10mg Tab] lisinopriL [Lisinopril 5mg 5 mg PO DAILY 07/16/18 06/21/21 History Tablet] carvedilol 6.25 mg tablet 6.25 mg PO BID tab 03/02/20 06/21/21 History Levothyroxine Sodium 50 mcg PO DAILYDM 10/23/20 06/21/21 History [Levothyroxine 50mcg (0.05mg) Tab] Ropinirole HCl 2 mg PO HS 10/23/20 06/21/21 History donepezil 10 mg tablet 10 mg PO DAILY 30 Days #30 tab 10/28/20 06/21/21 Rx Furosemide [Lasix 20mg tablet] 20 mg PO DIRECTED 04/28/21 06/21/21 History Tiotropium Bromid
--- NOTE | 2021-06-21 07:51 | P.CONPHA_ITS ---
[facility] Pharmacy VTE Monitoring - Patient Demographics Admission date: 06/21/21 Report Date: 06/21/21 Time: 07:51 Allergies/Adverse Reactions: Patient Allergies amoxicillin [AMOXICILLIN] Allergy (Unknown, Verified 05/12/21 15:59) Gastrointestinal Upset Penicillins [PENICILLINS] Allergy (Unknown, Verified 05/12/21 15:59) Gastrointestinal Upset prednisone [PREDNISONE] Adverse Reaction (Unknown, Verified 05/12/21 15:59) Shakiness Height: 1.6 m Weight: 66.905 kg Patient Problems: Current Active Problems Hypercapnic respiratory failure (Acute) Urinary tract infection in female (Acute) Altered mental status (Acute) - VTE Risk Labs: VTE Related Lab Results Hgb 11.7 g/dL (12.2-16.2) L 06/20/21 15:00 Hct 37.5 % (37.0-47.0) 06/20/21 15:00 Plt Count 235 K/mm3 (142-424) 06/20/21 15:00 BUN 16 mg/dl (7-17) 06/20/21 15:00 Creatinine 0.70 mg/dl (0.52-1.04) 06/20/21 15:00 Estimated Creat Clear 39 mL/min (50-200) 06/20/21 15:00 Clinical Trial Participant: No - Prophylaxis VTE Prophylaxis Ordered?: Yes Types of VTE Prophylaxis: TEDS Knee High
--- NOTE | 2021-06-21 10:33 | SW/DCPLANNER ---
Addendum entered by Bia Moscoso 06/22/21 10:09: The plan for this patient is to discharge home today with [facility]. I have updated patient's family and Keily gonzales/ O[facility] Serratoators regarding discharge plans. Addendum entered by Bia Moscoso 06/21/21 13:08: Jessi gonzales/ Obed Payan has stated that they will admit this patient to Hospice services once she returns home. I have informed Dr Garcia of discharge plan. Discharge date is unknown at this time. Addendum entered by Bia Moscoso 06/21/21 11:19: Keily gonzales/ Obed Payan stated that a nurse would be here this afternoon to evaluate this patient. Patient's son (Nona) is aware and will be present all afternoon in patient's room. Original Note: I have received a Hospice consult for this patient. Patient information has been faxed to Keily gonzales/ Obed Payan at this time. I will follow up with Keily once patient information is reviewed.
--- NOTE | 2021-06-21 12:57 | HMH.PHAINT ---
HOME MEDICATION LIST VERIFIED USIN LIST FROM [facility]
--- NOTE | 2021-06-21 13:37 | PC.NURSE ---
pt switched to 12L HFNC to eat lunch. She tolerated it well and requests to stay on HFNC. O2 sat on 12L is 98%. She is able to sit on the side of the bed as well as transfer to chair with assistance. She had a large BM utilizing BSC. She reports feeling better since Clonazepam dose decreased to 0.5mg. plant supervisor (Jessi) has made referral visit and reports that hospice will admit to their service once pt gets home.
--- NOTE | 2021-06-21 14:04 | PC.NURSE ---
RESP CARE NOTE: Pt oxygen at 12 lpm hfnc, SPO2 at 100%. Weaned to 6 lpm hfnc will continue to monitor SPO2 levels.
--- NOTE | 2021-06-21 19:26 | PC.NURSE ---
shift summary: Pt has done well this shift. Bipap 35% has been weaned to 4L NC. She is A&O. Has been sitting in the chair for most of the day. [place] cath discontinued. UOP brown, green, with sediment, and foul odor. BM x 1. Utilizes BSC. Hospice consulted today and plan is to go home with hospice services upon discharge.
[2021-06-22 04:55] VITALS: BP 143/51; PULSE 77; RESP 20; TEMP 36.8; O2SAT 97
[2021-06-22 05:05] VITALS: BMI 25.4
--- NOTE | 2021-06-22 05:19 | PC.NURSE ---
Pt is A/O. Pt rested well t/o shift. Pt voiced no c/o of pain or SOA thus far in shift. Pt was placed on Bipap @ night and tolerated well. Pt's O2 has been 90-96%. Pt is x1 assist to BSC to void.
[2021-06-22 06:30] VITALS: PULSE 93; PULSE 96; RESP 20; RESP 26; O2SAT 96
[2021-06-22 06:35] LABS: Alanine Aminotransferase 14 U/L (12-78); Albumin Level 3.4 g/dl (3.5-5.0); Albumin/Globulin Ratio 1.5 (1.1-1.8); Alkaline Phosphatase 105 U/L (38-126); Anion Gap 7.7 mEq/L (5-15); Aspartate Amino Transferase 23 U/L (14-36); Blood Urea Nitrogen 25 mg/dl (7-17); Calcium 8.3 mg/dl (8.4-10.2); Carbon Dioxide 38 mmol/L (22.0-30.0); Chloride 92 mmol/L (98-107); Creatinine Clearance Estimated 51 mL/min (50-200); Estimated Glomerular Filt Rate 82 ml/min (>60); GFR (African American) 99 ML/MIN (>60); Globulin 2.3 g/dL (1.3-3.2); Glucose 120 mg/dl (74-100); Magnesium 1.7 mg/dl (1.6-2.3); Potassium 4.7 mmoL/L (3.5-5.1); Sodium 133 mmol/L (136-145); Total Protein,Serum 5.7 g/dl (6.3-8.2)
[2021-06-22 06:54] LABS: Bilirubin,Total < 0.1 mg/dl (0.2-1.3)
[2021-06-22 06:56] LABS: Basophils % 0.3 % (0.1-2.0); Eosinophils # 0.1 K/mm3 (0.0-0.4); Eosinophils % 0.8 % (0.1-12.0); Hematocrit 30.2 % (37.0-47.0); Hemoglobin 9.5 g/dL (12.2-16.2); Lymphocytes # 1.1 K/mm3 (0.7-4.5); Lymphocytes % 18.1 % (10-50); Mean Corpuscular HGB Conc 31.3 g/dL (31.8-35.4); Mean Corpuscular Hemoglobin 30.4 pg (27.0-31.2); Mean Corpuscular Volume 97.2 fl (81-99); Mean Platelet Volume 8.8 fl (7.4-10.4); Monocytes # 0.2 K/mm3 (0.1-1.0); Monocytes % 3.2 % (1.7-9.3); Neutrophils # 4.8 K/mm3 (1.8-7.8); Neutrophils % 77.7 % (37.0-80.0); Platelet Count 202 K/mm3 (142-424); Red Blood Count 3.11 M/mm3 (4.20-5.40); Red Cell Distribution Width 15.1 % (11.5-17.5); White Blood Count 6.2 K/mm3 (4.8-10.8)
[2021-06-22 08:00] VITALS: BP 114/60; PULSE 92; RESP 18; TEMP 37.1; O2SAT 99
--- NOTE | 2021-06-22 08:39 | HMH.DCSUM ---
General - General Admission date:: 06/20/21 Discharge date: 06/22/21 HPI HPI: 75-year-old white female who has Dementia, significant COPD, oxygen and neb requirmenmts. Presented to the ED from home with recent History of multiple falls. Patient evidence of trauma on physical exam, ER assessed a GCS 13, with patient's son stating that this is not consistent with the patient's baseline. Moving all 4 extremities. Concern for stroke versus COPD exacerbation on arrival. Imaging and labs were obtained. CT noncontrast head obtained not showing evidence of bleed or acute intracranial abnormality. Patient was placed in c-collar in the emergency department and CT of C-spine did not show any acute osseous deformities. Chest x-ray showed pulmonary disease without any acute findings. CBC normal. Metabolic panel baseline for her. VBG with severely elevated CO2. Initiated on BiPAP and breathing treatments. Admitted to medicine for further management. Started on broad-spectrum antibiotics and steroids. Urine obtained with concern for UTI again. On rounds this morning, son is at bedside. Her presentation is very similar to last admission. Has been having more falls since discharge. Was actually discharged to [place] for a few days, did better with therapy. After getting home has declined again. Discussed the severity of her end-stage COPD. No nausea or vomiting this morning. Patient is febrile this morning. He needs to have difficulty breathing but is also complaining of not wanting to wear the mask for her BiPAP. Laced on nasal cannula oxygen for sake of questioning this morning, desaturated to the low 80s within a few minutes. Her son reports that she been increasingly weak. Hospital Course Hospital Course: Patient was admitted, hypercapnia was treated with BiPAP and she improved and was able to tolerate nasal cannula during the day and was able to sit up and felt much better. Consideration of her recurrent hypercapnia and recurrent acute on chronic respiratory failure prompted us to consider hospice care. She and her son were consulted. They agreed to transitioning to hospice care at home and [facility] was consulted and accepted her as a patient to transition into home care. This morning she was doing well, spent the night on BiPAP, is going to be transitioning to trilogy therapy for nighttime use at home with hospice. Plan will be to discharge home today with supportive care, Roxanol for home use for dyspnea and air hunger, she is already on clonazepam for her tremor disorder and anxiety and this will continue. We will send her home with azithromycin and steroids for the COPD exacerbation issues. Patient was noted to meet criteria for UTI on admission. Culture is pending at the time of this dictation. We will treat with cefdinir along with azithromycin for UTI issues and follow clinically. Will follow her at home with hospice services. Objective Vital signs: Temp Pulse Resp BP Pulse Ox 98.8 F 92 H 18 114/60 99 06/22/21 08:00 06/22/21 08:00 06/22/21 08:00 06/22/21 08:00 06/22/21 08:00 mild distress, thin, chronically ill appearing - *Routine HEENT Exam Head: Present: normocephalic Eye: Present: EOMI, PERRL ENT: Present: mucous membranes moist - *Routine Neck Exam Present: supple - *Routine Respiratory Exam Present: decreased breath sounds, prolonged expiratory phase, rales, wheezes - *Routine Cardiovascular Exam Present: RRR - *Routine Abdominal Exam Present: soft, normoactive bowel sounds. Absent: tenderness - *Routine Extremities Exam Absent: cyanosis, clubbing, edema - *Routine Skin Exam Present: warm. Absent: rash - Detailed Eye Exam Eyelids: Bilateral normal inspection Results Labs on day of discharge: Labs from last 24 hours 06/22/21 06/22/21 06:49 05:47 WBC 6.2 D RBC 3.11 L Hgb 9.5 L Hct 30.2 L MCV 97.2 MCH 30.4 MCHC
--- NOTE | 2021-06-22 09:21 | HMH.PTEV ---
Physical Therapy Evaluation Rehab PT IP Evaluation Start: 06/21/21 18:49 Freq: ONCE Status: Active Protocol: Document 06/22/21 09:18 WILLIAN (Rec: 06/22/21 09:21 WILLIAN [id number]) Subjective/History History History Pt is a 75 y/o female admitted to [facility] for acute resp. failure and COPD Subjective Subjective Pt reprots she will participate Rehab PT IP Eval Objective Appearance Patient Behavior Appropriate,Anxious Patient Orientation Person,Place,Name,Birthday, Year Difficulty following instructions none Speech Pattern Appropriate Ambulation Patient Able to Ambulate Yes Ambulation Observation IP General Gait Pattern Observation Shuffling Step Ambulation Distance (feet) 15 Ambulation Assistive Device Rolling Walker Ambulation Ability Supervision/Stand by Balance Ability to Arise Able, uses arms to help Sitting Balance Steady, safe Standing Balance Steady, wide stance Dynamic Sitting Balance Ability Good Dynamic Standing Balance Ability Fair Transfers Bed Transfer Ability Supervision/Stand by Chair Transfer Ability Supervision/Stand by Sit to Stand Bed Transfer Ability Supervision/Stand by Sit to Stand Chair Transfer Ability Supervision/Stand by Rehab PT IP prob,goals,plan Problems Date of Evaluation: 06/22/21 Rehab Potential Rehab Potential Innapropriate for Skilled Therapy Equipment Needs Assistive Devices Rolling / Wheeled Walker Discharge Plan PT Discharge Plan Pt at baseline level - no need for skilled therapy at this time - functional limitations due to end stage COPD - Pt to return home once medically stable G -code Required Yes Eval Complexity Eval Charge Codes 40811 - Moderate Complexity G Codes PT Current Status Mobility PT Current Status Modifier CJ-At least 20% but less than 40% impaired, limited or restricted PT Goal Status Mobility PT Goal Status Modifer CJ-At least 20% but less than 40% impaired, limited or restricted PHYSICIAN CERTIFICATION: I certify the specified therapy services for Rosey Canchola are required, authorized, and reviewed every 30 days.
--- NOTE | 2021-06-22 10:02 | HMH.OTEV ---
OT Inpatient Evaluation Rehab OT IP Evaluation Start: 06/21/21 18:49 Freq: ONCE Status: Complete Protocol: Document 06/22/21 09:47 MARIANNE (Rec: 06/22/21 10:02 MARIANNE [id number]) Rehab OT IP Assessment Subjective History 75-year-old white female who has Dementia, significant COPD , oxygen and neb requirmenmts. Presented to the ED from home with recent History of multiple falls. Patient evidence of trauma on physical exam, ER assessed a GCS 13, with patient's son stating that this is not consistent with the patient's baseline. Moving all 4 extremities. Concern for stroke versus COPD exacerbation on arrival. Imaging and labs were obtained . CT noncontrast head obtained not showing evidence of bleed or acute intracranial abnormality. Patient was placed in c-collar in the emergency department and CT of C-spine did not show any acute osseous deformities. Chest x-ray showed pulmonary disease without any acute findings. CBC normal. Metabolic panel baseline for her. VBG with severely elevated CO2. Initiated on BiPAP and breathing treatments . Admitted to medicine for further management. Started on broad-spectrum antibiotics and steroids. Urine obtained with concern for UTI again. On rounds this morning, son is at bedside. Her presentation is very similar to last admission. Has been having more falls since discharge. Was actually discharged to [place] for a few days, did better with therapy. After getting home has declined again. Discussed the severity of her end-stage
--- NOTE | 2021-06-23 13:48 | CARE MANAGER ---
Spoke with patient's son, who states that everything is going well post discharge. children's aide was there with patient at time of call. No known needs at this time.
== END 2021-06-22 10:28 | disposition hospice, home (50) ==
LOC: ER 14:28 → 2ND 20:10
PROVIDERS: Internal Medicine Adolescent Medicine; Admitting Provider Family Medicine; Emergency Provider Student in an Organized Health Care Education/Training Program; PCP Internal Medicine Adolescent Medicine; Visit Provider Internal Medicine Adolescent Medicine
DX: J96.01 Acute respiratory failure with hypoxia (principal); N39.0 Urinary tract infection, site not specified; J44.1 Chronic obstructive pulmonary disease with (acute) exacerbation; J96.02 Acute respiratory failure with hypercapnia; I10 Essential (primary) hypertension; Z79.899 Other long term (current) drug therapy; Z88.8 Allergy status to other drugs, medicaments and biological substances; Z20.822 Contact with and (suspected) exposure to COVID-19
CPT/HCPCS: G0378; 36415; 51702; 70450; 71045; 72125; 72170; 80053; 81001; 82803; 83735; 85025; 87040; 87081; 87086; 87186; 93005; 94640; 94760; 94761; 96375; 97162; 97165; 99285; C9803; J0456; J0696; U0003; U0005

== ENCOUNTER 2021-08-26 12:49 | Inpatient (IN) | payer OTHER, MEDICARE, MEDICAID, SELFPAY ==
[2021-08-26] VITALS (17 sets, daily range): BP systolic 104–152; BP diastolic 56–87; PULSE 60–71; RESP 18–25; TEMP 36.4–36.6; O2SAT 60–100; BMI 29.2; BMI 27.1
--- NOTE | 2021-08-26 13:01 | PC.NURSE ---
called RT for vapotherm or bipap r/t low SaO2 ER aware
--- NOTE | 2021-08-26 13:03 | PC.NURSE ---
JESSICA MUIR at
--- NOTE | 2021-08-26 13:04 | PC.NURSE ---
RT at BS
--- NOTE | 2021-08-26 13:08 | ECG_ITS ---
APPROVED REPORT Exam: Resting ECG HR:63 bpm ECG Measurements Heart Rate 63 AXES ME 130 P 69 QRSd 140 QRS 150 QT 464 T 29 QTc 472 Conclusion ELECTRONIC VENTRICULAR PACEMAKER ABNORMAL RHYTHM ECG UNCONFIRMED REPORT Electronically signed by : Darrell De MD 08/26/2021 15:34:05
--- NOTE | 2021-08-26 13:09 | XR_ITS ---
FINAL REPORT CLINICAL HISTORY: soa, hypoxia COMPARISON: 06/20/2021 FINDINGS: A single portable view of the chest was obtained. A left subclavian ICD is present. The heart size and pulmonary vascularity are within normal limits. The mediastinum is within normal limits. There is mild scarring. There is mild but worsening left lung base opacity which may represent atelectasis or pneumonia. The bony thorax is intact. IMPRESSION: Mild worsening left lung base atelectasis or pneumonia. Reviewed, Interpreted and Dictated by Ashish Haley III, MD Transcribed by Windy Thomas Authenticated and [facility]
--- NOTE | 2021-08-26 13:11 | HMH.EDGENADL ---
ED Disposition Clinical Impression: Acute respiratory failure with hypoxia and hypercapnia, COPD exacerbation Disposition: Admitted As Inpatient Condition on Discharge: Serious Referrals: Darrell De MD [Primary Care Provider] - - Critical Care Critical Care Time: Yes Attestation: On 08/26/21, the high probability of a clinically significant, sudden or life threatening deterioration of the following system(s) required my full and direct attention, intervention and personal management. The time I documented below is in addition to time spent performing reported procedures but includes the following listed in this critical care notation. Total Critical Care Time: 30 Vital system(s) involved:: Respiratory Failure My critical care processes included: Assessment & monitoring of V/S, Initial and Re-exams, Data Review/Interpretation, Coordinating Care, Medication Orders and management, Documentation Medical Decision Making - Medical Records Medical records reviewed: Yes: I reviewed the patient's medical records. MR Comment: Reviewed discharge summary from admission 06/20/2021 through 06/22/2021. Admitted for COPD exacerbation, respiratory failure, UTI. [facility] with home [facility]. Trilogy therapy at night. Azithromycin and steroids. Roxanol for symptomatic treatment of air hunger. She was already on clonazepam. - Dominick Inquiry Pt receiving controlled substance: No Vital Signs: 08/26/21 12:50 08/26/21 12:52 08/26/21 13:20 Temperature 97.7 F Temperature Source Oral Pulse Rate Pulse Rate [Radial] 63 Respiratory Rate 24 Blood Pressure Blood Pressure [Right Arm] 115/56 L Blood Pressure Mean [Right Arm] 75 Blood Pressure Position [Right Arm] Sitting 02 Sat by Pulse Oximetry 60 L 94 L 88 L Oxygen Delivery Method Nasal Cannula Nasal Cannula Nasal Cannula Oxygen Flow Rate (LPM) 3 5 3 08/26/21 13:30 Temperature Temperature Source Pulse Rate 61 Pulse Rate [Radial] Respiratory Rate 22 Blood Pressure 114/58 L Blood Pressure [Right Arm] Blood Pressure Mean [Right Arm] Blood Pressure Position [Right Arm] 02 Sat by Pulse Oximetry 97 Oxygen Delivery Method BiPAP Oxygen Flow Rate (LPM) - Lab Data Lab Results 08/26/21 13:12: Specimen Source R radial, O2 % 5lpm, ABG pH 7.25 L, ABG pCO2 90.3 H, ABG pO2 85.6, ABG HCO3 39.1 H, ABG Total CO2 41.8 H, ABG O2 Saturation 95, ABG Base Excess 11.9 H, Boby Test Acceptable 08/26/21 13:20: WBC 8.2, RBC 3.67 L, Hgb 11.4 L, Hct 37.2, MCV 101.2 H, MCH 31.0, MCHC 30.6 L, RDW 14.4, Plt Count 379, MPV 7.9, Neut % (Auto) 76.3, Lymph % (Auto) 16.6, Carroll % (Auto) 5.8, Eos % (Auto) 0.9, Baso % (Auto) 0.4, Neut # (Auto) 6.3, Lymph # (Auto) 1.4, Carroll # (Auto) 0.5, Eos # (Auto) 0.1, Baso # (Auto) 0.0 08/26/21 13:20: Sodium 137, Potassium 4.6, Chloride 96 L, Carbon Dioxide 38 H, Anion Gap 7.6, BUN 21 H, Creatinine 0.70, Estimated Creat Clear 57, Estimated GFR 82, Est GFR ( Amer) 99, Glucose 113 H, Calcium 8.1 L, Total Bilirubin < 0.1 L, AST 38 H, ALT 15, Alkaline Phosphatase 145 H, Troponin I 0.03, Total Protein 5.7 L, Albumin 3.3 L, Globulin 2.4, Albumin/Globulin Ratio 1.4 08/26/21 13:20: Lactate 0.7 08/26/21 13:20: SARS-CoV-2 (PCR) Not detected, Influenza A Untype (PCR) Not detected, Influenza Type B (PCR) Not detected 08/26/21 13:20: NT-Pro-B Natriuret Pep 2740 H Result diagrams: 08/26/21 13:20 08/26/21 13:20 Orders (Tests/Meds): ED MEDICATIONS Generic Name Dose Route Start Last Admin Trade Name Freq PRN Reason Stop Dose Admin Levofloxacin/Dextrose 750 mg in 150 mls @ 100 mls/hr 08/26/21 14:15 Levofloxacin 750mg/150ml Premix IV 09/09/21 14:14 Q24H BULMARO Sodium Chloride 10 ml 08/26/21 13:09 Sodium Chloride 0.9% 10ml Flush Syringe IV 09/25/21 13:08 NEEDED PRN Maintain IV Site Discontinued Medications Generic Name Dose Route Start Last Admin Trade Name Freq PRN Reason Stop Dose Adm
[2021-08-26 13:14] LABS: ABG Base Excess 11.9 mmol/L (-2.4-2.3); ABG HCO3 39.1 mmhg (22.0-26.0); ABG Oxygen Saturation 95 % (90-100); ABG PH 7.25 mmol/L (7.35-7.45); ABG PO2 85.6 mmhg (80-100); ABG TCO2 41.8 mmhg (23-27)
--- NOTE | 2021-08-26 13:15 | PC.NURSE ---
Pt's sister is at bedside at this time.
--- NOTE | 2021-08-26 13:17 | PC.NURSE ---
O2 DECREASED FROM 5L TO 3L.
--- NOTE | 2021-08-26 13:19 | PC.NURSE ---
Rad at bedside doing portable chest at this time.
--- NOTE | 2021-08-26 13:19 | PC.NURSE ---
RT gave ABG results to Dr Gregg, pt will be placed on BiPap at this time per MD verbal order given to RT
--- NOTE | 2021-08-26 13:21 | PC.NURSE ---
dermatology technician leaving room; respiratory going into room putting the patient on BiPap
[2021-08-26 13:30] LABS: Coronavirus 19, PCR Not Detected (NotDetected); Influenza A, PCR Not Detected (NotDetected); Influenza B, PCR Not Detected (NotDetected)
[2021-08-26 13:32] LABS: Basophils % 0.4 % (0.1-2.0); Eosinophils # 0.1 K/mm3 (0.0-0.4); Eosinophils % 0.9 % (0.1-12.0); Hematocrit 37.2 % (37.0-47.0); Hemoglobin 11.4 g/dL (12.2-16.2); Lymphocytes # 1.4 K/mm3 (0.7-4.5); Lymphocytes % 16.6 % (10-50); Mean Corpuscular HGB Conc 30.6 g/dL (31.8-35.4); Mean Corpuscular Volume 101.2 fl (81-99); Mean Platelet Volume 7.9 fl (7.4-10.4); Monocytes # 0.5 K/mm3 (0.1-1.0); Monocytes % 5.8 % (1.7-9.3); Neutrophils # 6.3 K/mm3 (1.8-7.8); Neutrophils % 76.3 % (37.0-80.0); Platelet Count 379 K/mm3 (142-424); Red Blood Count 3.67 M/mm3 (4.20-5.40); Red Cell Distribution Width 14.4 % (11.5-17.5); White Blood Count 8.2 K/mm3 (4.8-10.8)
[2021-08-26 13:39] LABS: ABG PCO2 90.3 mmhg (35.0-45.0); Allen's Test ACCEPTABLE; Oxygen 5LPM %; Source R RADIAL
[2021-08-26 13:40] LABS: Lactic Acid 0.7 mmol/L (0.7-2.1)
[2021-08-26 13:48] LABS: Alanine Aminotransferase 15 U/L (12-78); Albumin Level 3.3 g/dl (3.5-5.0); Albumin/Globulin Ratio 1.4 (1.1-1.8); Alkaline Phosphatase 145 U/L (38-126); Anion Gap 7.6 mEq/L (5-15); Aspartate Amino Transferase 38 U/L (14-36); Blood Urea Nitrogen 21 mg/dl (7-17); Calcium 8.1 mg/dl (8.4-10.2); Carbon Dioxide 38 mmol/L (22.0-30.0); Chloride 96 mmol/L (98-107); Creatinine Clearance Estimated 57 mL/min (50-200); Estimated Glomerular Filt Rate 82 ml/min (>60); GFR (African American) 99 ML/MIN (>60); Globulin 2.4 g/dL (1.3-3.2); Glucose 113 mg/dl (74-100); Potassium 4.6 mmoL/L (3.5-5.1); Sodium 137 mmol/L (136-145); Total Protein,Serum 5.7 g/dl (6.3-8.2)
[2021-08-26 13:52] LABS: Bilirubin,Total < 0.1 mg/dl (0.2-1.3)
--- NOTE | 2021-08-26 13:54 | PC.NURSE ---
PT GIVEN WARM BLANKETS. SON AT BEDSIDE
[2021-08-26 13:59] LABS: NT Pro Brain Natriuretic Pep. 2740 pg/mL (0-125)
[2021-08-26 14:01] LABS: Troponin I 0.03 ng/ml (0.00-0.034)
--- NOTE | 2021-08-26 14:22 | PC.NURSE ---
Dr Gregg spoke with Dr Mccabe who is covering for Dr De at this time about admission. Pt to be admitted with Resp. Failure and COPD exacerbation
--- NOTE | 2021-08-26 14:26 | PC.NURSE ---
Pt is to be an acute admission per case management
--- NOTE | 2021-08-26 14:33 | PC.NURSE ---
pt's sister came out with pt's POA on the phone and was asking questions about pt's code status. Explained what code status meant and pt's son (POA) states he wants to to be a DNR, I explained to son that one of the nurses would be calling him back to get confirmation on that. Dr Ye was witness to this conversation making pt DNR at this time.
--- NOTE | 2021-08-26 14:53 | PC.NURSE ---
assisted Ellen Lauren RN with dalal insertion
[2021-08-26 14:56] LABS: Microscopic, Urine URINE MICROSCOPIC (MICROSCOPIC)
[2021-08-26 14:59] LABS: Appearance,Urine CLOUDY (Clear); Bilirubin,Urine Negative (Negative); Blood, Urine 2+ (Negative); Color,Urine YELLOW (Yellow); Glucose,Urine (UA) Negative (Negative); Ketones,Urine Negative (Negative); Leukocyte Esterase,Urine 2+ (Negative); Nitrate,Urine POSITIVE (Negative); Protein,Urine TRACE (Negative); Specific Gravity, Urine 1.025 (1.005-1.030); Urobilinogen,Urine 0.2 EU/dl (0.2)
--- NOTE | 2021-08-26 15:07 | PC.NURSE ---
Myself and MARY Gamble spoke with son (SKY Canchola) on phone and received verbal confirmation for DNR status. DNR form completed.
--- NOTE | 2021-08-26 15:07 | PC.NURSE ---
REPORT CALLED TO FLOOR
--- NOTE | 2021-08-26 15:12 | PC.NURSE ---
helped pt to reposition in bed, pt given pillow for comfort, pt family at BS. Will continue to monitor
[2021-08-26 15:13] LABS: Bacteria,Urine 4+ /lpf
--- NOTE | 2021-08-26 15:20 | HMH.PHAVTE ---
[facility] Pharmacy VTE Monitoring - Patient Demographics Admission date: 08/26/21 Report Date: 08/26/21 Time: 15:21 Allergies/Adverse Reactions: Patient Allergies amoxicillin [AMOXICILLIN] Allergy (Unknown, Verified 05/12/21 15:59) Gastrointestinal Upset Penicillins [PENICILLINS] Allergy (Unknown, Verified 05/12/21 15:59) Gastrointestinal Upset prednisone [PREDNISONE] Adverse Reaction (Unknown, Verified 05/12/21 15:59) Shakiness Height: 1.57 m Weight: 72.575 kg Patient Problems: Current Active Problems COPD exacerbation (Acute) Acute respiratory failure with hypoxia and hypercarbia (Acute) - VTE Risk Labs: VTE Related Lab Results Hgb 11.4 g/dL (12.2-16.2) L 08/26/21 13:20 Hct 37.2 % (37.0-47.0) 08/26/21 13:20 Plt Count 379 K/mm3 (142-424) 08/26/21 13:20 BUN 21 mg/dl (7-17) H 08/26/21 13:20 Creatinine 0.70 mg/dl (0.52-1.04) 08/26/21 13:20 Estimated Creat Clear 57 mL/min (50-200) 08/26/21 13:20 Clinical Trial Participant: No - Prophylaxis VTE Prophylaxis Ordered?: Yes Types of VTE Prophylaxis: TEDS Knee High
--- NOTE | 2021-08-26 15:24 | PC.NURSE ---
Pt being transported upstairs at this time.
--- NOTE | 2021-08-26 15:27 | PC.NURSE ---
PT arrived to the floor at this time
[2021-08-26 22:01] LABS: ABG Base Excess 7.8 mmol/L (-2.4-2.3); ABG HCO3 34.3 mmhg (22.0-26.0); ABG Oxygen Saturation 97 % (90-100); ABG PO2 93.4 mmhg (80-100); ABG TCO2 36.5 mmhg (23-27)
[2021-08-26 22:02] LABS: Oxygen 40% %
[2021-08-26 22:03] LABS: Allen's Test Acceptable; Pressure Support 8; Source Right Radial; Vent Rate 20
[2021-08-26 22:07] LABS: ABG PCO2 72.2 mmhg (35.0-45.0)
--- NOTE | 2021-08-26 22:17 | PC.NURSE ---
Addendum entered by Carline Pinon RN 08/27/21 04:49: Patient A&o x4. Patient currently on bipap and tolerating well sats above 90%. However patient does desat rapidly when bipap removed for drinks or medication administration. Lungs have expiatory wheezing and ronchi noted. Franklin cath in place draining yellow clear urine. Patient has rested most of the shift. Original Note: Made Estelle aware of repeat blood gas. Estelle states he would like patient to remain on bipap at this time with no changes or new orders at this time.
[2021-08-27] VITALS (11 sets, daily range): BP systolic 112–141; BP diastolic 53–68; PULSE 64–87; RESP 18–24; TEMP 36.6–36.7; O2SAT 87–98; BMI 28.3
--- NOTE | 2021-08-27 08:27 | HMH.HP ---
*Admission Date: 08/26/21 *Chief complaint: altered mental status, swelling *History of present illness: 75 yr old female with long history of COPD, considered end-stage requiring continuous supplemental oxygen at home and is followed by Hospice. Sister is at bedside and provided much of the history as Ms. Canchola doesn't recall anything out of the ordinary. Sister reports that she has had increased lower extremity edema over the past few days, lasix was resumed per Hospice but yesterday she was less alert than her baseline, her face looked puffy and she was having dyspnea above her baseline so sister opted to bring her to the ED. In the ED was found to have possible UTI, mild worsening of left base pneumonia vs. atelectasis and requiring Bipap so decision was made for admission, IV antibiotics and IV steroids for COPD exacerbation with possible pneumnia and UTI. [facility] History I have reviewed the patient's past medical history: Yes Medical History: Reports:: Anxiety, Arrhythmia, Atrial Fibrillation, Congestive Heart Failure, Chronic Obstructive Pulmonary Disease (COPD), Depression, Heart Murmur, Home Oxygen, Hyperlipidemia, Hypertension, Internal Pacemaker, Lung Disease, Migraine Denies:: Cancer, Diabetes Mellitus Type 1, Diabetes Mellitus Type 2, MRSA *Have you ever received a pneumonia vaccine?: Yes *Have you received a flu vaccine this season?: Yes Other Medical History: Reports: Anemia, Arthritis, Hypothyroidism, Thyroid Disease Other Surgeries: Yes: Cardiac Catheterization, Cholecystectomy, Colonoscopy, Hysterectomy-Total, Pacemaker Amputation: No Fractures: No - *Social History Last grade of school completed: 7th or 8th Smoking Status: Former smoker Tobacco Type: cigarettes # Packs/Day (cigarettes): 2 #Yrs smoked (if former smoker): 55 Alcohol Intake: never Substance Use Type: denies use *Occupational Status:: retired, disabled Housing: house Household Members: family *Travel in the last 8 weeks: None - Psychiatric History Pschychiatric History:: Reports:: Anxiety, Depression Family Hx:: Cancer, Hypertension Review of Systems - Review of Systems Review of systems:: pertinent systems reviewed and negative unless documented below - Constitutional Reports malaise, Reports weakness - *Cardiovascular Reports shortness of breath, Reports generalized swelling - *Respiratory Reports cough, Reports shortness of breath, Denies pain with cough - *Neurologic Reports behavioral changes, Reports confusion, Reports tremor(s), Reports weakness - Psychiatric Reports anxiety Meds Home Medications Medication Instructions Recorded Confirmed Type Aspirin [Adult Aspirin Regimen] 81 mg PO DAILY 07/16/18 08/26/21 History Atorvastatin Calcium [Lipitor 20mg 20 mg PO DAILY 07/16/18 08/26/21 History Tab] Montelukast Sodium [Montelukast 10 mg PO HS 07/16/18 08/26/21 History 10mg Tab] carvedilol 6.25 mg tablet 6.25 mg PO BID tab 03/02/20 08/26/21 History Levothyroxine Sodium 50 mcg PO DAILYDM 10/23/20 08/26/21 History [Levothyroxine 50mcg (0.05mg) Tab] Ropinirole HCl 2 mg PO HS 10/23/20 08/26/21 History donepezil 10 mg tablet 10 mg PO DAILY 30 Days #30 tab 10/28/20 08/26/21 Rx Furosemide [Lasix 20mg tablet] 10 mg PO DIRECTED 04/28/21 08/27/21 History Tiotropium Singer [Spiriva 1 cap INHALATION DAILY 04/28/21 08/26/21 History 18mcg/puff inhaler] Acetaminophen 650 mg PO Q4H PRN 04/29/21 08/26/21 History Buspirone HCl [Buspar 10mg 10 mg PO BID 04/29/21 08/26/21 History tablet] Omeprazole [Omeprazole 20mg 20 mg PO DAILY 04/29/21 08/26/21 History Capsule] Fluticasone/Salmeterol [Advair 1 inh INHALATION BID 05/31/21 08/26/21 History 250/50mcg Diskus] Albuterol Sulfate [Proventil Hfa] 1 inh INHALATION QIDP PRN 06/01/21 08/26/21 History clonazePAM [Clonazepam] 1 mg PO TID 30 Days #90 tab 06/03/21 08/26/21 Rx Ipratropium/Albuterol Sulfate 3 ml IH QIDRT 06/21/21 08/26/21 History [Duoneb 3mL neb]
--- NOTE | 2021-08-27 15:52 | PC.NURSE ---
Pt is A/Ox4. She was taken off the Bipap this morning. She was placed on 5L NC. She has tolerated it well. Sent down a sputum to lab. Changed IV due to it blowing. She had breakfast, and lunch. She tolerated both well.
[2021-08-28] VITALS (10 sets, daily range): BP systolic 114–174; BP diastolic 55–74; PULSE 68–92; RESP 20–24; TEMP 36.4–36.8; O2SAT 90–98; BMI 28.3
--- NOTE | 2021-08-28 04:45 | PC.NURSE ---
Pt has rested well throughout shift. Pt was tolerating 5L NC at beginning of shift well with O2 >90%. Pt wore bipap at night with O2 97-98%. Pt stated she normally wears a bipap while sleeping at home. Pt lung sounds remain inspiratory and expiratory wheezing thoughout shift. No s/s of respiratory distress. Pt has voiced no pain. Franklin remains in place.
--- NOTE | 2021-08-28 08:19 | HMH.ACPN2 ---
Internal Medicine - PN: Subj *Date: 08/28/21 *Time: 08:23 Interval history: more alert this am and off bipap and reports feels like can sit in chair - labs pending - urine culture final results still pending - vital signs ok Exam Vital signs and Labs for Last 24 Hours: Temp Pulse Resp BP Pulse Ox 98.2 F 92 H 24 174/74 H 90 L 08/28/21 07:49 08/28/21 07:49 08/28/21 07:49 08/28/21 07:49 08/28/21 07:49 I & O for Last 24 hours: Intake & Output 08/25/21 08/26/21 08/27/21 08/28/21 11:59 11:59 11:59 11:59 Intake Total 118 / 118 240 / 240 Output Total 700 / 700 800 / 800 Balance -582 / -582 -560 / -560 Weight 153 lb 11.2 oz 153 lb 11.2 oz Microbiology Reports for the Last 24 Hours: Microbiology 08/27/21 09:57 Sputum - Expectorated Sputum Gram Stain - Final 08/26/21 14:52 Urine,Clean Catch Urine Culture - Preliminary Gram Negative Rods - Constitutional no acute distress, chronically ill appearing, cooperative - *Routine HEENT Exam Head: Present: normocephalic Eye: Present: EOMI, PERRL ENT: Present: mucous membranes dry - *Routine Neck Exam Absent: JVD - *Routine Respiratory Exam Present: decreased breath sounds, wheezes - *Routine Cardiovascular Exam Present: RRR, murmur, S4 - *Routine Abdominal Exam Present: soft - *Routine Extremities Exam Absent: calf tenderness - *Routine Skin Exam Present: dry - *Routine Neurological Exam Present: moving all extremities - Routine Psychiatric Exam Present: anxious Assessment and Plan (1) Acute UTI Status: Acute Category: Medical Code(s): N39.0 - Urinary tract infection, site not specified (2) Acute respiratory failure with hypoxia and hypercarbia Status: Acute Category: Medical Code(s): J96.01 - Acute respiratory failure with hypoxia; J96.02 - Acute respiratory failure with hypercapnia (3) Systolic congestive heart failure Status: Chronic Category: Medical Code(s): I50.20 - Unspecified systolic (congestive) heart failure (4) Dementia Status: Chronic Qualifiers: Dementia type: vascular dementia Category: Medical Code(s): F03.90 - Unspecified dementia without behavioral disturbance (5) Respiratory acidosis Status: Acute Category: Medical Code(s): E87.2 - Acidosis (6) COPD exacerbation Status: Acute Category: Medical Code(s): J44.1 - Chronic obstructive pulmonary disease with (acute) exacerbation (7) Community acquired pneumonia Status: Acute Qualifiers: Laterality: left Lung location: lower lobe of lung Qualified Code(s): J18.9 - Pneumonia, unspecified organism Category: Medical Code(s): J18.9 - Pneumonia, unspecified organism - Assessment and plan all Dx Assessment and Plan for all problems:: doing better in general and has urine culture results pending - will see if pt can wean more on o2 and oob
[2021-08-28 08:40] LABS: Basophils % 0.3 % (0.1-2.0); Eosinophils % 0.6 % (0.1-12.0); Hematocrit 35.8 % (37.0-47.0); Hemoglobin 11.1 g/dL (12.2-16.2); Lymphocytes % 14.2 % (10-50); Mean Corpuscular HGB Conc 30.9 g/dL (31.8-35.4); Mean Corpuscular Hemoglobin 30.6 pg (27.0-31.2); Mean Corpuscular Volume 98.7 fl (81-99); Mean Platelet Volume 7.9 fl (7.4-10.4); Monocytes # 0.5 K/mm3 (0.1-1.0); Monocytes % 7.3 % (1.7-9.3); Neutrophils # 5.5 K/mm3 (1.8-7.8); Neutrophils % 77.6 % (37.0-80.0); Platelet Count 420 K/mm3 (142-424); Red Blood Count 3.63 M/mm3 (4.20-5.40); Red Cell Distribution Width 14.8 % (11.5-17.5)
[2021-08-28 09:05] LABS: Blood Urea Nitrogen 22 mg/dl (7-17); Chloride 93 mmol/L (98-107); Creatinine Clearance Estimated 54 mL/min (50-200); Estimated Glomerular Filt Rate 70 ml/min (>60); GFR (African American) 85 ML/MIN (>60); Potassium 4.4 mmoL/L (3.5-5.1)
[2021-08-28 09:13] LABS: Calcium 8.2 mg/dl (8.4-10.2); Glucose 117 mg/dl (74-100); Sodium 136 mmol/L (136-145)
[2021-08-28 09:29] LABS: Anion Gap 6.4 mEq/L (5-15); Carbon Dioxide 41 mmol/L (22.0-30.0)
[2021-08-29] VITALS: BP 142/71; PULSE 83; RESP 24; TEMP 36.6; O2SAT 98
--- NOTE | 2021-08-29 00:20 | PC.NURSE ---
pt called out, and upon entering pts room her linens and gown were wet from urine. pts gown and linen were changed, and pt was cleaned. pure-wick in place. no other needs at this time.
[2021-08-29 04:00] VITALS: BP 149/65; PULSE 81; RESP 24; TEMP 36.4; O2SAT 97
[2021-08-29 04:55] VITALS: BMI 28.1
--- NOTE | 2021-08-29 05:09 | PC.NURSE ---
pt has slept most of the night. shes a&oX4 .she had a productive cough at the beginning of shift. expiratory wheezes auscultated bilateral upper lobes, diminished lung sounds auscultated in lower lung bases. pt was put on bipap before going to sleep last night and tolerated well. her o2 sat has been 97-98% on bipap and was the same on 4L NC. she has been incontinent t/o the night and voided per pure-wick and chux. +1 pitting edema noted in bilateral feet. transfers with 2 assist from chair. sherry light within reach and bed alarm on.
[2021-08-29 06:10] VITALS: PULSE 80; PULSE 85; O2SAT 90
--- NOTE | 2021-08-29 06:58 | PC.NURSE ---
bipap taken off. pt up to chair and placed on 4L NC. pt o2 sats remained mid 80's so she is now on 5L O2 NC
[2021-08-29 08:00] VITALS: BP 143/69; PULSE 94; RESP 26; TEMP 36.4; O2SAT 88
--- NOTE | 2021-08-29 08:26 | HMH.DCSUM ---
General - General Admission date:: 08/26/21 Discharge date: 08/29/21 HPI HPI: 75 yr old female with long history of COPD, considered end-stage requiring continuous supplemental oxygen at home and is followed by Hospice. Sister is at bedside and provided much of the history as Ms. Canchola doesn't recall anything out of the ordinary. Sister reports that she has had increased lower extremity edema over the past few days, lasix was resumed per Hospice but yesterday she was less alert than her baseline, her face looked puffy and she was having dyspnea above her baseline so sister opted to bring her to the ED. In the ED was found to have possible UTI, mild worsening of left base pneumonia vs. atelectasis and requiring Bipap so decision was made for admission, IV antibiotics and IV steroids for COPD exacerbation with possible pneumnia and UTI. Hospital Course Hospital Course: Patient was admitted as noted continuously placed on BiPAP but was able to be quickly weaned off of this, and patient was continued on antibiotics ordered to the ER. She improved in stepwise fashion over the next couple of days. E. coli UTI was cultured from the urine, pansensitive, and she was continued on Levaquin therapy. Sputum culture is pending, gram-positive cocci but no growth of discernible organism at the time of this dictation. This morning the patient is sitting up. Feeling good, oriented. A little bit dyspneic but at her baseline. Follow-up she likes to go home. She has hospice services at home and we will contact them regarding her discharge. Plan will be to continue Levaquin, 1 week of steroids, follow-up with hospice and in my office as scheduled. Objective Vital signs: Temp Pulse Resp BP Pulse Ox 97.6 F 80 24 149/65 H 90 L 08/29/21 04:00 08/29/21 06:10 08/29/21 04:00 08/29/21 04:00 08/29/21 06:10 no acute distress, cachectic, chronically ill appearing - *Routine HEENT Exam Head: Present: normocephalic Eye: Present: EOMI, PERRL ENT: Present: mucous membranes moist - *Routine Neck Exam Present: supple - *Routine Respiratory Exam Present: prolonged expiratory phase, rales, wheezes - *Routine Cardiovascular Exam Present: RRR - *Routine Abdominal Exam Present: soft, normoactive bowel sounds. Absent: tenderness - *Routine Extremities Exam Absent: cyanosis, clubbing, edema - *Routine Skin Exam Present: warm. Absent: rash - *Routine Neurological Exam Present: alert Use essential tremor related to her anxiety is actually better than baseline - Detailed Eye Exam Eyelids: Bilateral normal inspection Results Labs on day of discharge: Labs from last 24 hours 08/28/21 08/28/21 08:30 08:30 WBC 7.0 RBC 3.63 L Hgb 11.1 L Hct 35.8 L MCV 98.7 MCH 30.6 MCHC 30.9 L RDW 14.8 Plt Count 420 MPV 7.9 Neut % (Auto) 77.6 Lymph % (Auto) 14.2 Donley % (Auto) 7.3 Eos % (Auto) 0.6 Baso % (Auto) 0.3 Neut # (Auto) 5.5 Lymph # (Auto) 1.0 Donley # (Auto) 0.5 Eos # (Auto) 0.0 Baso # (Auto) 0.0 Sodium 136 Potassium 4.4 Chloride 93 L Carbon Dioxide 41 H* Anion Gap 6.4 BUN 22 H Creatinine 0.80 Estimated Creat Clear 54 Estimated GFR 70 Est GFR ( Amer) 85 Glucose 117 H Calcium 8.2 L Preliminary micro results at discharge 08/27/21 09:57 Sputum Culture - Preliminary Sputum - Expectorated Sputum 08/26/21 13:22 Blood Culture - Preliminary Blood NO GROWTH AFTER 48 HOURS 08/26/21 13:22 Blood Culture - Preliminary Blood NO GROWTH AFTER 48 HOURS DS: Diagnosis - Discharge Diagnosis (1) Acute UTI Status: Acute (2) Acute respiratory failure with hypoxia and hypercarbia Status: Acute (3) Systolic congestive heart failure Status: Chronic (4) Dementia Status: Chronic (5) Respiratory acidosis Status: Acute (6) COPD exacerbation Status: Acute (7) Community acquired pneumonia Sta
--- NOTE | 2021-08-29 09:07 | SW/DCPLANNER ---
This patient is currently established with [facility]. The plan for this patient is to return home today and resume Hospice Care. I have spoke with Jackie at [facility]: stay is related and she is aware patient will return home today. Updated patient information has been faxed.
[2021-08-29 09:51] VITALS: PULSE 85; PULSE 87; O2SAT 89
--- NOTE | 2021-08-29 10:49 | PC.NURSE ---
awaiting on patient ride at this time.
--- NOTE | 2021-08-30 13:37 | CARE MANAGER ---
Spoke with son and he thinks patient was discharged too soon. He states the Hospice nurse has been there. They are waiting on her antibiotics. Denies any questions or concerns. MARY Cabezas
== END 2021-08-29 13:10 | disposition hospice, inpatient (51) | DRG 193 ==
LOC: ER 14:23 → 2ND 14:35
PROVIDERS: Admitting Provider Emergency Medicine; Emergency Provider Emergency Medicine; PCP Internal Medicine Adolescent Medicine; Visit Provider Internal Medicine Adolescent Medicine
DX: J18.9 Pneumonia, unspecified organism (principal); J96.01 Acute respiratory failure with hypoxia; J96.02 Acute respiratory failure with hypercapnia; J44.1 Chronic obstructive pulmonary disease with (acute) exacerbation; J44.0 Chronic obstructive pulmonary disease with (acute) lower respiratory infection; N39.0 Urinary tract infection, site not specified; Z99.81 Dependence on supplemental oxygen; B96.20 Unspecified Escherichia coli [E. coli] as the cause of diseases classified elsewhere; Z51.5 Encounter for palliative care; F03.90 Unspecified dementia, unspecified severity, without behavioral disturbance, psychotic disturbance, mood disturbance, and anxiety; J44.9 Chronic obstructive pulmonary disease, unspecified; E03.9 Hypothyroidism, unspecified; M19.90 Unspecified osteoarthritis, unspecified site; Z87.891 Personal history of nicotine dependence; F32.A Depression, unspecified; F41.9 Anxiety disorder, unspecified
CPT/HCPCS: 36415; 51702; 71045; 80048; 80053; 81001; 82803; 83605; 83880; 84484; 85025; 87040; 87070; 87086; 87088; 87186; 87205; 93005; 94640; 94761; 99291; C9803; J1956; U0003; U0005